=== PATIENT | male | born 1960 | race Caucasian/White ===

== ENCOUNTER → 2018-04-11 12:35 | Outpatient (CLI) | payer OTHER, SELFPAY ==
--- NOTE | 2018-04-11 | DI.MRI.S_ITS ---
PROCEDURE: MR KNEE RT WO CON INDICATIONS: CYST TECHNIQUE: Noncontrast sagittal PD fast spin echo and T2 fast spin echo with fat saturation, sagittal 3-D FLASH with fat saturation; coronal T1 spin echo and PD fast spin echo with fat saturation, and axial PD fast spin echo with fat saturation through the knee. COMPARISON: None. FINDINGS: Image quality: Excellent. Menisci: There is radial tearing of the posterior horn medial meniscus. Medial extrusion of the medial meniscus is present. Lateral meniscus demonstrates a linear oblique high T2 signal intensity within the anterior horn and body, without definite articular surface extension. Cruciate ligaments: The anterior and posterior cruciate ligaments appear intact. Medial structures: The medial collateral ligament appears intact, but is thickened slightly, which may be due to remote injury. Mild T2 signal elevation at the tibial insertion of the semimembranosus is present. Visualized portions of the pes anserinus tendons appear normal. No abnormal bursal fluid. Lateral structures: The lateral collateral ligament, long and short heads of the biceps femoris tendon appear intact. The popliteus tendon appears normal. Iliotibial band appears normal. Anterior structures: The quadriceps and patellar tendons appear intact. There is mild T2 signal elevation within the patellar tendon at the tibial insertion site. Patellar alignment is normal. No femoral trochlear dysplasia or ventral trochlear prominence. No edema in the infrapatellar fat pad. Moderate prepatellar subcutaneous edema and fluid. Bones and cartilage: No bone marrow contusions or fractures. There is moderate diffuse articular cartilage loss overlying the weightbearing aspects of the medial femoral condyle and medial tibial plateau. Mild diffuse articular cartilage loss overlies the patellar apex and adjacent portions of the medial and lateral patellar facets. Joint space: There is a moderate knee joint effusion and a large Zavala's cyst. Normal appearing synovial plicae are incidentally noted. IMPRESSION: 1. Medial meniscal tearing. 2. Mucoid degeneration of the lateral meniscus without definite superimposed tear. 3. Prepatellar bursitis. 4. New joint effusion and Zavala's cyst. 5. Insertional tendinitis of the semimembranosus. 6. Patellar tendinitis. Dictated by: Armen Valdez M.D. on 04/11/2018 at 13:27 Approved by: Armen Valdez M.D. on 04/11/2018 at 13:31
== END ==
PROVIDERS: Family Provider Internal Medicine; Visit Provider Internal Medicine
DX: S83.241A Other tear of medial meniscus, current injury, right knee, initial encounter (principal); M70.41 Prepatellar bursitis, right knee; M25.461 Effusion, right knee; M76.51 Patellar tendinitis, right knee
CPT/HCPCS: 73721

== ENCOUNTER 2021-07-24 10:16 | Emergency (ER) | payer OTHER, SELFPAY ==
[2021-07-24] VITALS (35 sets, daily range): BP systolic 123–210; BP diastolic 61–110; PULSE 54–220; RESP 13–28; TEMP 36.4–36.6; O2SAT 92–98; BMI 44.9
--- NOTE | 2021-07-24 10:25 | DI.RAD.S_ITS ---
PROCEDURE: XR CHEST 1V INDICATIONS: chest pain TECHNIQUE: One view of the chest was acquired. COMPARISON: None. FINDINGS: Surgical changes and devices: None. Lungs and pleura: Lungs are clear. No pleural effusions or pneumothorax. Mediastinum: Mediastinal contours appear normal. Heart size is normal. Bones and chest wall: No suspicious bony lesions. Overlying soft tissues appear unremarkable. IMPRESSION: No acute disease. Dictated by: Luiz Naqvi M.D. on 07/24/2021 at 11:14 Approved by: Luiz Naqvi M.D. on 07/24/2021 at 11:15
[2021-07-24 10:54] LABS: Add Manual Diff / Slide Review NO; Basophils Absolute Auto 0 /uL (0-100); Basophils Percent Auto 0.5 % (0-2); Eosinophils Absolute Auto 0 /uL (0-450); Hematocrit 43.8 % (41-53); Hemoglobin 14.8 g/dL (13.5-17.5); Lymphocytes Absolute Auto 1600 /uL (1100-4500); Lymphocytes Percent Auto 23.5 % (25-40); Mean Corpuscular HGB Conc 33.9 % (30-36); Mean Corpuscular Hemoglobin 31.3 PG (26-34); Mean Corpuscular Volume 92.5 fL (80-100); Monocytes Absolute Auto 400 /uL (0-900); Monocytes Percent Auto 6.5 % (3-14); Neutrophils Absolute Auto 4700 /uL (1500-7000); Neutrophils Percent Auto 69.5 % (50-75); Platelet Count 92 X10^3/uL (150-400); Red Blood Cell Count 4.73 X10^6/uL (4.5-5.9); Red Cell Distribution Width 14.2 % (11.6-14.8); White Blood Cell Count 6.8 X10^3/uL (4.5-11.0)
[2021-07-24 10:57] LABS: Alanine Aminotransferase 52 IU/L (<50); Albumin 4.8 g/dL (3.5-5.0); Albumin Globulin Ratio 1.5 (1.0-2.8); Alkaline Phosphatase 73 U/L (38-126); Aspartate Aminotransferase 82 IU/L (17-59); Bilirubin Total 1.6 mg/dL (0.2-1.3); Blood Urea Nitrogen 9 mg/dL (9-20); Calcium 9.5 mg/dL (8.4-10.2); Carbon Dioxide 20 mmol/L (22-32); Chloride 103 mmol/L (98-107); Creatine Kinase 503 U/L (55-170); Estimated Glomerular Filt Rate > 60.0 mL/min (>60); Globulin 3.1 g/dL (1.7-4.1); Glucose 119 mg/dL (80-110); HEMOLYSIS < 15 (0-50); Lipase 143 U/L (23-300); Potassium 3.9 mmol/L (3.4-5.1); Sodium 138 mmol/L (137-145); Total Protein 7.9 g/dL (6.3-8.2)
[2021-07-24 11:06] LABS: NT-proBNP (BNP-Adult 18+) 30 pg/mL (<125)
[2021-07-24 11:09] LABS: Troponin I < 0.012 ng/mL (0.01-0.034)
[2021-07-24 11:12] LABS: CKMB % Relative Index 0.9 % (1.5-5.0); COVID19 -Nasal RAPID Negative (Negative)
--- NOTE | 2021-07-24 11:13 | ED.GENADULT ---
HPI - General Adult General Chief complaint: Hypertension Stated complaint: HIGH BLOOD PRESSURE Time Seen by Provider: 07/24/21 10:40 Source: patient Mode of arrival: Ambulatory Limitations: no limitations History of Present Illness HPI narrative: This is a 60-year-old male who states he woke up today and feels very shaky and just generally unwell. His blood pressure was quite high he had his regular losartan at 4:00 a.m.. Patient's and his state he still felt very shaky and just unwell his blood pressure was still in the 170s so they took metoprolol p.o.. Patient continued to feel unwell and she overall and came to the emergency department. Has not had fevers that he is aware of. He denies chills but he has pyloric option in shaking here in the department. He denies headache, sudden vision changes. No chest pain or pressure. Possibly some mild shortness of breath. Denies any vomiting dry heaves and nausea. He has had nausea but denies any abdominal pain. He has had some diarrhea but no black or bloody stools. It has not been frequent in only a couple episodes. He denies any urinary symptoms. No new back or flank pain. No abdominal pain. Patient does have a wound on his right anterior mckeon he is unsure if they wound has increasing redness but the wound itself has opened up. [facility] time until about a month ago. Patient is on medication for hypertension. does note he has had 1 prior seizure when he had electrolyte abnormalities with a low sodium and potassium. Denies any other daily medications besides an aspirin 81 mg. Related Data Home Medications Medication Instructions Recorded Confirmed lisinopril 20 mg tablet (Zestril) 20 mg PO QDAY #0 03/29/13 Previous Rx's Medication Instructions Recorded rifampin 300 mg capsule (Rifadin) 300 mg PO BID #20 03/29/13 sulfamethoxazole 800 2 tab PO BID #40 03/29/13 mg-trimethoprim 160 mg tablet Allergies Allergy/AdvReac Type Severity Reaction Status Date / Time INGREDIENT: NO KNOWN - NO Allergy Unknown Uncoded 12/05/17 13:05 KNOWN DRUG ALLERGY Review of Systems Review of Systems ROS Unobtainable: All systems reviewed & are unremarkable except as noted in HPI and below Patient History Social History Smoking Status: Never smoker Smoking Status: Never smoker alcohol intake frequency: 0-2 drinks per day Substance Use Type: marijuana Exam Narrative Exam Narrative: GEN: Male, alert and oriented x 3, patient appears to be in moderate distress. Patient appears to have rigors and piloerection HEENT: Atraumatic, pupils are equal round reactive to light, extraocular movements are intact, nares are clear, TMs are clear with no fluid, there is no conjunctival pallor. Throat is clear without any exudates, erythema, tonsillar enlargement or uvular deviation, no facial droop. No meningeal changes. HEART: Regular rate and rhythm without murmur, clicks, rubs. Pulses are equal in upper and lower extremities LUNGS:Lungs clear to auscultation, no wheezes, rales, crackles, chest moves symmetrically ABD:bowel sounds normal, soft, non-tender, no guarding, rebound, rigidity, no masses noted, no hepatosplenomegaly, nondistended. :No CVA tenderness MSCL: Patient has on his right anterior mckeon with a small amount of breakdown, no purulent drainage. Patient has surrounding erythema of the leg and tracking upwards. He has no muscle atrophy, muscles strength 5/5 upper and lower extremities, full range of motion, normal gait NEURO:CN 2-12 intact, sensation normal, reflexes 2/4 upper and lower extremities. SKIN: No other rashes or skin lesions appreciated elsewhere. No petechiae, ecchymosis or purpura. Initial Vital Signs Initial Vital Signs: Vital Signs Temperature 97.9 F 07/24/21 10:22 Pulse Rate 102 H 07/24/21 10:22 Respiratory Rate 24 07/24/21 10:22 Blood Pressure 199/95 H 07/24/21 10:22 Pulse Oximetry 97 07/24/21 10:22 Scores GCS Maurice coma scale eye opening: Spontaneous Maurice coma scale verbal response: Orientated Nasima coma scale motor response: Obey commands Nasima coma scale total score: 15 Course Orders Ordered: ED Orders 07/24/21 10:25 XR chest 1V Stat 07/24/21 10:27 EKG-12 Lead Stat 07/24/21 10:35 BNP [NT-proBNP (BNP-Adult 18+)] Stat COVID19 -Nasal swab/Pre-Proc Stat Complete Blood Count AUTO DIFF Stat Comprehensive Metabolic Panel Stat Lactate (Lactic Acid) Stat Lipase Stat Procalcitonin Stat Troponin & CK Cardiac Panel Stat 07/24/21 11:27 CT angio chest abdomen pelvis Stat 07/24/21 11:45 COVID19 - ADMIT ([employer] swab/PCR) Stat 07/24/21 11:56 Blood Culture Stat 07/24/21 12:11 Urinalysis and Microscopic Stat 07/24/21 12:16 Wound Culture and Gram Stain Stat 07/24/21 13:20 Troponin I Stat Bisacodyl (Bisacodyl 10 Mg Supp) 10 mg [place] DAILY PRN PRN Reason: Constipation Enoxaparin Sodium (Enoxaparin 40 Mg/0.4 Ml Syringe) 40 mg SUBCUT DAILY [facility] Famotidine (Famotidine 20 Mg/2 Ml Vial) 20 mg IV BID [facility] Sodium Chloride (Normal Saline 0.9%) 1,000 mls @ 100 mls/hr IV CONT [facility] Last Admin: 07/24/21 17:38 Dose: 100 mls/hr Documented by: QUANG Levetiracetam 1,000 mg/ Sodium (Chloride) 110 mls @ 440 mls/hr IV Q12H EZEKIEL Lorazepam (Lorazepam 2 Mg/Ml Inj) 1 mg IV Q4HR PRN PRN Reason: SEIZURE Lorazepam (Lorazepam 2 Mg/Ml Inj) 2 mg IV Q4HR PRN PRN Reason: Alcohol Withdrawal Losartan Potassium (Losartan 25 Mg Tablet) 25 mg PO DAILY [facility] Metoclopramide HCl (Metoclopramide 10 Mg/2 Ml Inj) 10 mg IV Q6HR PRN PRN Reason: Nausea And Vomiting Metoprolol Succinate (Metoprolol Er 50 Mg Tablet) 50 mg PO DAILY [facility] Last Admin: 07/24/21 18:36 Dose: Not Given Documented by: QUANG Metoprolol Tartrate (Metoprolol Tartrate 5 Mg/5 Ml Inj) 5 mg IV Q6H PRN PRN Reason: SBP>180 AND/OR HR>110 Last Admin: 07/24/21 17:44 Dose: 5 mg Documented by: QUANG Morphine Sulfate (Morphine 2 Mg/Ml Inj) 2 mg IV Q4HR PRN PRN Reason: Pain, Mild (1-3) Naloxone HCl (Naloxone 0.4 Mg/Ml Vial) 0.2 mg IV Q2MIN PRN PRN Reason: Opiate Reversal Nifedipine (Nifedipine 30 Mg Tab Er) 30 mg PO DAILY EZEKIEL Discontinued Medications Piperacillin Sod/Tazobactam (Sod 4.5 gm/ Sodium Chloride) 100 mls @ 200 mls/hr IV NOW ONE Stop: 07/24/21 11:28 Last Infusion: 07/24/21 13:13 Dose: 0 mls/hr Documented by: Admin: 07/24/21 12:00 Dose: 200 mls/hr Documented by: QUANG Sodium Chloride (Normal Saline 0.9%) 1,000 mls @ 1,000 mls/hr IV BOLUS ONE Stop: 07/24/21 12:28 Last Admin: 07/24/21 12:20 Dose: Not Given Documented by: QUANG Sodium Chloride (Normal Saline 0.9%) 2,466 mls @ 822 mls/hr 30 ml/kg infuse over 3 hr (2466 ml) IV NOW ONE Stop: 07/24/21 15:05 Last Infusion: 07/24/21 16:05 Dose: 0 mls/hr Documented by: Admin: 07/24/21 12:19 Dose: 822 mls/hr Documented by: QUANG Vancomycin HCl/Dextrose (Vancomycin) 1,500 mg in 300 mls @ 200 mls/hr IV NOW ONE Stop: 07/24/21 13:36 Last Infusion: 07/24/21 17:05 Dose: 0 mls/hr Documented by: Admin: 07/24/21 12:52 Dose: 200 mls/hr Documented by: QUANG Levetiracetam 2,000 mg/ Sodium (Chloride) 120 mls @ 480 mls/hr IV NOW ONE Stop: 07/24/21 14:48 Last Infusion: 07/24/21 15:17 Dose: 0 mls/hr Documented by: Admin: 07/24/21 14:59 Dose: 480 mls/hr Documented by: QUANG Lorazepam (Lorazepam 2 Mg/Ml Inj) 2 mg IV NOW ONE Stop: 07/24/21 15:06 Last Admin: 07/24/21 14:07 Dose: 2 mg Documented by: QUANG Consultations Consultation #1: Dr. Hanley, hospitalist accepts for admission for possible sepsis although patient does not typically be criteria at this time he has actually been hypertensive. But does have what appears to be a cellulitis also has elevated liver enzymes. Patient's lactate was elevated. He was started on vanco and Zosyn for potential infection secondary to wound and erythema on his anterior leg as likely source. No other sources been clearly found at this time. Plan for ICU patient was given 30 cc/kilos L bolus. We did discuss whether not treated hypertension and Dr. Chen defers at this time. Vital Signs Vital signs: Vital Signs - 8 hr 07/24/21 11:00 07/24/21 11:03 07/24/21 11:12 Temperature Pulse Rate 97 H 98 H 101 H Respiratory Rate 18 19 22 Blood Pressure 177/94 H 180/88 H Pulse Oximetry 94 92 93 07/24/21 11:15 07/24/21 11:30 07/24/21 11:45 Temperature Pulse Rate 102 H 102 H 113 H Respiratory Rate 21 15 26 H Blood Pressure 183/96 H 185/95 H 210/110 H Pulse Oximetry 94 94 95 07/24/21 12:00 07/24/21 12:30 07/24/21 12:53 Temperature Pulse Rate 54 L 101 H 107 H Respiratory Rate 17 20 Blood Pressure 191/92 H 188/94 H Pulse Oximetry 95 92 97 07/24/21 13:00 07/24/21 13:15 Temperature 97.5 F L Pulse Rate 100 H 101 H Respiratory Rate 15 13 Blood Pressure 190/92 H 182/91 H Pulse Oximetry 95 94 Medical Decision Making Lab Data Result diagrams: 07/24/21 16:00 07/24/21 16:00 Labs: Lab Results 07/24/21 07/24/21 07/24/21 Range/Units 10:35 10:35 10:35 WBC 6.8 (4.5-11.0) X10^3/uL RBC 4.73 (4.5-5.9) X10^6/uL Hgb 14.8 (13.5-17.5) g/dL Hct 43.8 (41-53) % MCV 92.5 (80-100) fL MCH 31.3 (26-34) PG MCHC 33.9 (30-36) % RDW 14.2 (11.6-14.8) % Plt Count 92 L (150-400) X10^3/uL Neut % (Auto) 69.5 (50-75) % Lymph % (Auto) 23.5 L (25-40) % Nicholas % (Auto) 6.5 (3-14) % Eos % (Auto) 0.0 L (2-4) % Baso % (Auto) 0.5 (0-2) % Neut # (Auto) 4700 (5722-0508) /uL Lymph # (Auto) 1600 (0237-5044) /uL Nicholas # (Auto) 400 (0-900) /uL Eos # (Auto) 0 (0-450) /uL Baso # (Auto) 0 (0-100) /uL Sodium 138 (137-145) mmol/L Potassium 3.9 (3.4-5.1) mmol/L Chloride 103 (98-107) mmol/L Carbon Dioxide 20 L (22-32) mmol/L BUN 9 (9-20) mg/dL Creatinine 0.90 (0.66-1.25) mg/dL Estimated GFR > 60.0 (>60) mL/min BUN/Creatinine Ratio 10.0 (6-22) Glucose 119 H (80-110) mg/dL Lactate (0.7-2.1) mmol/L Calcium 9.5 (8.4-10.2) mg/dL Total Bilirubin 1.6 H (0.2-1.3) mg/dL AST 82 H (17-59) IU/L ALT 52 H (<50) IU/L Alkaline Phosphatase 73 (38-126) U/L Total Creatine Kinase 503 H (55-170) U/L CK-MB (CK-2) 4.30 H (<2.37) ng/mL CK-MB (CK-2) Rel Index 0.9 L (1.5-5.0) % Troponin I < 0.012 (0.01-0.034) ng/mL NT-Pro-B Natriuret Pep 30 (<125) pg/mL Total Protein 7.9 (6.3-8.2) g/dL Albumin 4.8 (3.5-5.0) g/dL Globulin 3.1 (1.7-4.1) g/dL Albumin/Globulin Ratio 1.5 (1.0-2.8) Lipase 143 (23-300) U/L Procalcitonin (<0.5) ng/mL Urine Color Urine Appearance Urine pH (4.5-8.0) Ur Specific Benjamin (1.000-1.035) Urine Protein (Negative) Urine Glucose (UA) (Negative) g/dL Urine Ketones (NEGATIVE) Urine Occult Blood (Negative) Urine Nitrate (Negative) Urine Bilirubin (NEGATIVE) Urine Urobilinogen (0.2) E.U./dL Ur Leukocyte Esterase (NEGATIVE) Urine RBC (0-5/HPF) Urine WBC (0-5/HPF) Ur Squamous Epith Cells (0-5/HPF) Amorphous Sediment Urine Bacteria (None) Urine Mucus (Negative) Ur Culture Indicated? U Opiates 300ng/mL cut (Negative) Ur Oxycodone Screen (Negative) Urine Methadone Screen (Negative) Ur Barbiturates Screen (Negative) U Tricyclic Antidepress (Negative) Ur Phencyclidine Scrn (Negative) Ur Amphetamines Screen (Negative) U Methamphetamines Scrn (Negative) Ur MDMA Scrn (Ecstasy) (Negative) U Benzodiazepines Scrn (Negative) Urine Cocaine Screen (Negative) U Marijuana (THC) Screen (Negative) SARS-CoV-2 (PCR) (Negative) 07/24/21 07/24/21 07/24/21 Range/Units 10:35 10:35 10:35 WBC (4.5-11.0) X10^3/uL RBC (4.5-5.9) X10^6/uL Hgb (13.5-17.5) g/dL Hct (41-53) % MCV (80-100) fL MCH (26-34) PG MCHC (30-36) % RDW (11.6-14.8) % Plt Count (150-400) X10^3/uL Neut % (Auto) (50-75) % Lymph % (Auto) (25-40) % Nicholas % (Auto) (3-14) % Eos % (Auto) (2-4) % Baso % (Auto) (0-2) % Neut # (Auto) (1820-1511) /uL Lymph # (Auto) (6482-0860) /uL Nicholas # (Auto) (0-900) /uL Eos # (Auto) (0-450) /uL Baso # (Auto) (0-100) /uL Sodium (137-145) mmol/L Potassium (3.4-5.1) mmol/L Chloride (98-107) mmol/L Carbon Dioxide (22-32) mmol/L BUN (9-20) mg/dL Creatinine (0.66-1.25) mg/dL Estimated GFR (>60) mL/min BUN/Creatinine Ratio (6-22) Glucose (80-110) mg/dL Lactate 4.3 H* (0.7-2.1) mmol/L Calcium (8.4-10.2) mg/dL Total Bilirubin (0.2-1.3) mg/dL AST (17-59) IU/L ALT (<50) IU/L Alkaline Phosphatase (38-126) U/L Total Creatine Kinase (55-170) U/L CK-MB (CK-2) (<2.37) ng/mL CK-MB (CK-2) Rel Index (1.5-5.0) % Troponin I (0.01-0.034) ng/mL NT-Pro-B Natriuret Pep (<125) pg/mL Total Protein (6.3-8.2) g/dL Albumin (3.5-5.0) g/dL Globulin (1.7-4.1) g/dL Albumin/Globulin Ratio (1.0-2.8) Lipase (23-300) U/L Procalcitonin 0.11 (<0.5) ng/mL Urine Color Urine Appearance Urine pH (4.5-8.0) Ur Specific Benjamin (1.000-1.035) Urine Protein (Negative) Urine Glucose (UA) (Negative) g/dL Urine Ketones (NEGATIVE) Urine Occult Blood (Negative) Urine Nitrate (Negative) Urine Bilirubin (NEGATIVE) Urine Urobilinogen (0.2) E.U./dL Ur Leukocyte Esterase (NEGATIVE) Urine RBC (0-5/HPF) Urine WBC (0-5/HPF) Ur Squamous Epith Cells (0-5/HPF) Amorphous Sediment Urine Bacteria (None) Urine Mucus (Negative) Ur Culture Indicated? U Opiates 300ng/mL cut (Negative) Ur Oxycodone Screen (Negative) Urine Methadone Screen (Negative) Ur Barbiturates Screen (Negative) U Tricyclic Antidepress (Negative) Ur Phencyclidine Scrn (Negative) Ur Amphetamines Screen (Negative) U Methamphetamines Scrn (Negative) Ur MDMA Scrn (Ecstasy) (Negative) U Benzodiazepines Scrn (Negative) Urine Cocaine Screen (Negative) U Marijuana (THC) Screen (Negative) SARS-CoV-2 (PCR) Negative (Negative) 07/24/21 07/24/21 07/24/21 Range/Units 11:45 12:11 12:11 WBC (4.5-11.0) X10^3/uL RBC (4.5-5.9) X10^6/uL Hgb (13.5-17.5) g/dL Hct (41-53) % MCV (80-100) fL MCH (26-34) PG MCHC (30-36) % RDW (11.6-14.8) % Plt Count (150-400) X10^3/uL Neut % (Auto) (50-75) % Lymph % (Auto) (25-40) % Nicholas % (Auto) (3-14) % Eos % (Auto) (2-4) % Baso % (Auto) (0-2) % Neut # (Auto) (4373-1909) /uL Lymph # (Auto) (3886-8369) /uL Nicholas # (Auto) (0-900) /uL Eos # (Auto) (0-450) /uL Baso # (Auto) (0-100) /uL Sodium (137-145) mmol/L Potassium (3.4-5.1) mmol/L Chloride (98-107) mmol/L Carbon Dioxide (22-32) mmol/L BUN (9-20) mg/dL Creatinine (0.66-1.25) mg/dL Estimated GFR (>60) mL/min BUN/Creatinine Ratio (6-22) Glucose (80-110) mg/dL Lactate (0.7-2.1) mmol/L Calcium (8.4-10.2) mg/dL Total Bilirubin (0.2-1.3) mg/dL AST (17-59) IU/L ALT (<50) IU/L Alkaline Phosphatase (38-126) U/L Total Creatine Kinase (55-170) U/L CK-MB (CK-2) (<2.37) ng/mL CK-MB (CK-2) Rel Index (1.5-5.0) % Troponin I (0.01-0.034) ng/mL NT-Pro-B Natriuret Pep (<125) pg/mL Total Protein (6.3-8.2) g/dL Albumin (3.5-5.0) g/dL Globulin (1.7-4.1) g/dL Albumin/Globulin Ratio (1.0-2.8) Lipase (23-300) U/L Procalcitonin (<0.5) ng/mL Urine Color Yellow Urine Appearance Clear Urine pH 6.0 (4.5-8.0) Ur Specific Benjamin 1.015 (1.000-1.035) Urine Protein 1+ H (Negative) Urine Glucose (UA) Negative (Negative) g/dL Urine Ketones 1+ H (NEGATIVE) Urine Occult Blood Trace-lysed (Negative) Urine Nitrate Negative (Negative) Urine Bilirubin Negative (NEGATIVE) Urine Urobilinogen 0.2 (0.2) E.U./dL Ur Leukocyte Esterase Negative (NEGATIVE) Urine RBC 0-1/hpf (0-5/HPF) Urine WBC 0-1/hpf (0-5/HPF) Ur Squamous Epith Cells 1-5 /hpf (0-5/HPF) Amorphous Sediment Urine Bacteria Moderate (10-30) H (None) Urine Mucus (Negative) Ur Culture Indicated? Cult not indicated U Opiates 300ng/mL cut Negative (Negative) Ur Oxycodone Screen Negative (Negative) Urine Methadone Screen Negative (Negative) Ur Barbiturates Screen Negative (Negative) U Tricyclic Antidepress Negative (Negative) Ur Phencyclidine Scrn Negative (Negative) Ur Amphetamines Screen Negative (Negative) U Methamphetamines Scrn Negative (Negative) Ur MDMA Scrn (Ecstasy) Negative (Negative) U Benzodiazepines Scrn Negative (Negative) Urine Cocaine Screen Negative (Negative) U Marijuana (THC) Screen Positive H (Negative) SARS-CoV-2 (PCR) Negative (Negative) 07/24/21 Range/Units 12:11 WBC (4.5-11.0) X10^3/uL RBC (4.5-5.9) X10^6/uL Hgb (13.5-17.5) g/dL Hct (41-53) % MCV (80-100) fL MCH (26-34) PG MCHC (30-36) % RDW (11.6-14.8) % Plt Count (150-400) X10^3/uL Neut % (Auto) (50-75) % Lymph % (Auto) (25-40) % Nicholas % (Auto) (3-14) % Eos % (Auto) (2-4) % Baso % (Auto) (0-2) % Neut # (Auto) (4265-6342) /uL Lymph # (Auto) (8304-6618) /uL Nicholas # (Auto) (0-900) /uL Eos # (Auto) (0-450) /uL Baso # (Auto) (0-100) /uL Sodium (137-145) mmol/L Potassium (3.4-5.1) mmol/L Chloride (98-107) mmol/L Carbon Dioxide (22-32) mmol/L BUN (9-20) mg/dL Creatinine (0.66-1.25) mg/dL Estimated GFR (>60) mL/min BUN/Creatinine Ratio (6-22) Glucose (80-110) mg/dL Lactate (0.7-2.1) mmol/L Calcium (8.4-10.2) mg/dL Total Bilirubin (0.2-1.3) mg/dL AST (17-59) IU/L ALT (<50) IU/L Alkaline Phosphatase (38-126) U/L Total Creatine Kinase (55-170) U/L CK-MB (CK-2) (<2.37) ng/mL CK-MB (CK-2) Rel Index (1.5-5.0) % Troponin I (0.01-0.034) ng/mL NT-Pro-B Natriuret Pep (<125) pg/mL Total Protein (6.3-8.2) g/dL Albumin (3.5-5.0) g/dL Globulin (1.7-4.1) g/dL Albumin/Globulin Ratio (1.0-2.8) Lipase (23-300) U/L Procalcitonin (<0.5) ng/mL Urine Color Urine Appearance Urine pH (4.5-8.0) Ur Specific Benjamin (1.000-1.035) Urine Protein (Negative) Urine Glucose (UA) (Negative) g/dL Urine Ketones (NEGATIVE) Urine Occult Blood (Negative) Urine Nitrate (Negative) Urine Bilirubin (NEGATIVE) Urine Urobilinogen (0.2) E.U./dL Ur Leukocyte Esterase (NEGATIVE) Urine RBC 1-5/hpf (0-5/HPF) Urine WBC 1-5/hpf (0-5/HPF) Ur Squamous Epith Cells 0-1 /hpf (0-5/HPF) Amorphous Sediment 1+ Urine Bacteria Few (2-10) H (None) Urine Mucus 1+ H (Negative) Ur Culture Indicated? Specimen cultured U Opiates 300ng/mL cut (Negative) Ur Oxycodone Screen (Negative) Urine Methadone Screen (Negative) Ur Barbiturates Screen (Negative) U Tricyclic Antidepress (Negative) Ur Phencyclidine Scrn (Negative) Ur Amphetamines Screen (Negative) U Methamphetamines Scrn (Negative) Ur MDMA Scrn (Ecstasy) (Negative) U Benzodiazepines Scrn (Negative) Urine Cocaine Screen (Negative) U Marijuana (THC) Screen (Negative) SARS-CoV-2 (PCR) (Negative) Point of Care Testing Glucose POC 119 Urine Dip Bedside Urine Glucose Negative Bedside Urine Bilirubin - Negative Bedside Urine Ketone + 15 Urine Specific Benjamin 1.015 Bedside Urine Occult Blood - Negative Bedside Urine pH 6.0 Bedside Urine Protein + 30 Bedside Urine Urobilinogen - Negative Bedside Urine Nitrite - Negative Bedside Urine Leukocytes - Negative Esterase Point of care testing: Point of Care Testing Glucose POC 119 Urine Dip Bedside Urine Glucose Negative Bedside Urine Bilirubin - Negative Bedside Urine Ketone + 15 Urine Specific Benjamin 1.015 Bedside Urine Occult Blood - Negative Bedside Urine pH 6.0 Bedside Urine Protein + 30 Bedside Urine Urobilinogen - Negative Bedside Urine Nitrite - Negative Bedside Urine Leukocytes - Negative Esterase Imaging Data CT scan - abdomen/pelvis: Radiologist's Impression: Launch?[address] [address] [address] Scan Report Signed Patient: Rupesh Olmedo MR#: [id number] : 1960 Acct:[id number] Age/Sex: 60 / M Date of Service: 07/24/21 Loc: ED Accession Number: [id number] ?? Procedure: CT angio chest abdomen pelvis Ordering Provider: Laura Gold D.O. PROCEDURE:? CT ANGIO CHEST ABDOMEN PELVIS ? INDICATIONS:? shaky, htn, elevated lfts ? TECHNIQUE:? Precontrast 5 mm thick sections acquired from the lung apices to the iliac crests.? After the administration of intravenous contrast, 2.5 mm thick sections again acquired from the lung apices to the iliac crests.? Maximum intensity projection (MIP) oblique sagittal and coronal reformats were then acquired.? For radiation dose reduction, the following was used:? automated exposure control.? ? COMPARISON:? [facility], CR, XR CHEST 1V, 07/24/2021, 10:41. ? FINDINGS:? Image quality:? Excellent.? ? AORTA:? The aorta demonstrates normal caliber.? No findings aneurysm or dissection are seen. ? CHEST:? Lungs and pleura:? No acute airspace opacities.? No pleural effusions or pneumothorax.? Central and peripheral airways are patent and normal in caliber.? ? Mediastinum:? Heart size is normal.? No pericardial effusion.? No mediastinal or hilar adenopathy by size criteria.? Central pulmonary arteries are normal in size.? To the limits of this study performed for evaluation of the aorta, no large or central pulmonary embolism can be seen.? Esophagus is normal in caliber.? There is a small hiatal hernia.? ? Bones and chest wall:? No axillary adenopathy by size criteria.? Thyroid gland demonstrates no significant abnormality.? No suspicious bony lesions.? No vertebral body compression fractures.? ? ? ABDOMEN:? Vasculature:? Celiac trunk and mesenteric arteries are patent.? Renal arteries are also patent.? ? Solid organs:? An enlarged, fatty liver can be seen.? No focal liver lesion is seen.? Gallbladder wall is not thickened.? Biliary system is non dilated.? Pancreas enhances normally.? Spleen is normal in size and enhancement.? No adrenal nodules.? Both kidneys are normal in size and enhancement, without hydronephrosis.? ? Peritoneum and bowel:? No free fluid or air.? Bowel loops are normal in caliber and wall thickness.? ? Nodes and vessels:? No retroperitoneal or mesenteric adenopathy by size criteria.? Inferior vena cava is normal in morphology.? ? Miscellaneous:? No ventral hernias.? ? ? PELVIS:? Genitourinary:? The urinary bladder is decompressed, which limits its evaluation. ? Miscellaneous:? No enlarged inguinal or pelvic lymph nodes are seen.? There is a fat-containing right inguinal hernia seen.? ? Bones:? No suspicious bony lesions.? No vertebral body compression fractures.? Age-appropriate bony degenerative changes are seen.? ? ? IMPRESSION:? No acute aortic pathology can be seen. ? No significant mesenteric artery abnormality is seen. ? Enlarged, fatty liver. ? ? ? Incidental note is made of: Small hiatal hernia Fat containing right inguinal hernia ? Dictated by: Chris Hodgson M.D. on 07/24/2021 at 11:37 ? ? Approved by: Chris Hodgson M.D. on 07/24/2021 at 11:41? CT scan - head: Radiologist's Impression: [address] [address] [address] Scan Report Signed Patient: Rupesh Olmedo MR#: [id number] : 1960 Acct:[id number] Age/Sex: 60 / M Date of Service: 07/24/21 Loc: 90A-1 Accession Number: [id number] ?? Procedure: CT head/brain wo con Ordering Provider: Laura Gold D.O. PROCEDURE:? CT HEAD/BRAIN WO CON ? INDICATIONS:? seizure ? TECHNIQUE:? Noncontrast 4.5 mm thick angled axial sections acquired from the foramen magnum to the vertex, with coronal and sagittal reformats.? For radiation dose reduction, the following was used:? automated exposure control, adjustment of mA and/or kV according to patient size.? ? COMPARISON:? [facility], CR, XR CHEST 1V, 07/24/2021, 10:41. ? FINDINGS:? Image quality:? Excellent.? ? CSF spaces:? Basal cisterns are patent.? No extra-axial fluid collections.? The ventricles are symmetric in size and shape.? ? Brain:? No intracranial bleeds or masses.? There is cerebral volume loss for age, with resultant ventricular and sulcal prominence.? There are periventricular and deep white matter chronic small vessel ischemic changes.? There is intracranial internal carotid artery atherosclerosis.? ? Skull and face:? Calvarium and visualized facial bones appear intact, without suspicious lesions.? ? Sinuses:? A small amount of mucosal thickening is seen within the right maxillary sinus.? Visualized sinuses and mastoids are otherwise relatively clear.? ? ? IMPRESSION:? ? No acute intracranial process is seen on this noncontrast head CT. ? ? Dictated by: Chris Hodgson M.D. on 07/24/2021 at 13:37 ? ? Approved by: Chris Hodgson M.D. on 07/24/2021 at 13:38 ECG Data Attestation: I personally reviewed and interpreted this ECG as follows: Prior ECG tracings: not available for review Interpretation: Sinus rhythm, rate of 98 [place] 164 QRS of 96 and QTC 472. No acute ST elevation depression. Patient is not a prior for comparison. Patient's repeat EKG does not show any new ST changes but patient does appear to have prolonged QT. MDM Narrative Medical decision making narrative: This is a 60-year-old male who comes in with complaint of hypertension and feeling shaky patient appears to be having rigors and pyloric mckeon on exam. He does have what appears to be an open wound and some cellulitis on his right lower extremity but is also noted to have some nausea with some dry heaves overnight as well as some loose stools. His abdominal labs are elevated but he is nontender on exam. His lactate was elevated had some mild improvement but not complete resolution. He was given a 30 cc/kilos bolus. Has not had any other clear changes. He is hypertensive but also slightly tachycardic. Imaging does not show any clear changes on CT chest abdomen pelvis angio. Suspected infection and started on vanco and Zosyn. Patient was admitted to ICU with Dr. Chen was boarding here in the department awaiting a bed upstairs. While in the department patient ambulated to the bathroom and then returned and had what appeared to be and a seizure-like activity with tonic-clonic activity lasting approximately 60 seconds. He received Ativan here in the department. Head CT was negative. Patient has not had any fever so far and resumed his normal mentation. He has had 1 prior seizure in the past when he had hyponatremia and some changes to his potassium as well. He does not have any other known seizure history. Dr. Chen initiated Kera. Patient was ultimately accepted at [facility]. Critical Care Time Critical Care Time Critical Care Time: Yes Total Critical Care Time: 45 Attestation: The high probability of a clinically significant, sudden or life threatening deterioration of the [cardiac, pulm, neuro] system(s) required my full and direct attention, intervention and personal management. The aggregate critical care time was [] minutes. This time is in addition to time spent performing reported procedures but includes the following: [x] Data Review and interpretation [x] Patient assessment and monitoring of vital signs [x] Documentation [x] Medication orders and management Discharge Plan Departure Patient Disposition: Admitted As Inpatient Clinical Impression: Cellulitis of leg, right, Seizure, Sepsis, Hypertension Admit Date/Time: 07/24/21 13:15 Admit Provider: Telma Newton
--- NOTE | 2021-07-24 11:27 | DI.CT.S_ITS ---
PROCEDURE: CT ANGIO CHEST ABDOMEN PELVIS INDICATIONS: shaky, htn, elevated lfts TECHNIQUE: Precontrast 5 mm thick sections acquired from the lung apices to the iliac crests. After the administration of intravenous contrast, 2.5 mm thick sections again acquired from the lung apices to the iliac crests. Maximum intensity projection (MIP) oblique sagittal and coronal reformats were then acquired. For radiation dose reduction, the following was used: automated exposure control. COMPARISON: [facility], CR, XR CHEST 1V, 07/24/2021, 10:41. FINDINGS: Image quality: Excellent. AORTA: The aorta demonstrates normal caliber. No findings aneurysm or dissection are seen. CHEST: Lungs and pleura: No acute airspace opacities. No pleural effusions or pneumothorax. Central and peripheral airways are patent and normal in caliber. Mediastinum: Heart size is normal. No pericardial effusion. No mediastinal or hilar adenopathy by size criteria. Central pulmonary arteries are normal in size. To the limits of this study performed for evaluation of the aorta, no large or central pulmonary embolism can be seen. Esophagus is normal in caliber. There is a small hiatal hernia. Bones and chest wall: No axillary adenopathy by size criteria. Thyroid gland demonstrates no significant abnormality. No suspicious bony lesions. No vertebral body compression fractures. ABDOMEN: Vasculature: Celiac trunk and mesenteric arteries are patent. Renal arteries are also patent. Solid organs: An enlarged, fatty liver can be seen. No focal liver lesion is seen. Gallbladder wall is not thickened. Biliary system is non dilated. Pancreas enhances normally. Spleen is normal in size and enhancement. No adrenal nodules. Both kidneys are normal in size and enhancement, without hydronephrosis. Peritoneum and bowel: No free fluid or air. Bowel loops are normal in caliber and wall thickness. Nodes and vessels: No retroperitoneal or mesenteric adenopathy by size criteria. Inferior vena cava is normal in morphology. Miscellaneous: No ventral hernias. PELVIS: Genitourinary: The urinary bladder is decompressed, which limits its evaluation. Miscellaneous: No enlarged inguinal or pelvic lymph nodes are seen. There is a fat-containing right inguinal hernia seen. Bones: No suspicious bony lesions. No vertebral body compression fractures. Age-appropriate bony degenerative changes are seen. IMPRESSION: No acute aortic pathology can be seen. No significant mesenteric artery abnormality is seen. Enlarged, fatty liver. Incidental note is made of: Small hiatal hernia Fat containing right inguinal hernia Dictated by: Chris Hodgson M.D. on 07/24/2021 at 11:37 Approved by: Chris Hodgson M.D. on 07/24/2021 at 11:41
[2021-07-24] MEDS: PIPERACILLIN/TAZO 4.5 GM in SODIUM CHLORIDE 0.9% 100 ML 200 ML IV (12:00)
[2021-07-24 12:07] LABS: Lactate (Lactic Acid) 4.3 mmol/L (0.7-2.1)
[2021-07-24 12:14] LABS: Procalcitonin 0.11 ng/mL (<0.5)
[2021-07-24] MEDS: SODIUM CHLORIDE 0.9% 2,466 ML 822 ML IV (12:19)
[2021-07-24] MEDS: VANCOMYCIN 1,500 MG/300 ML PIGGYBACK 200 MG IV (12:52)
[2021-07-24 13:12] LABS: Appearance Urine UA CLEAR; Bilirubin Urine UA NEGATIVE (NEGATIVE); Color Urine UA YELLOW; Glucose Urine UA NEGATIVE (Negative); Ketones Urine UA 1+ (NEGATIVE); Leukocyte Esterase Urine UA NEGATIVE (NEGATIVE); Nitrite Urine UA NEGATIVE (Negative); Occult Blood Urine UA TRACE-LYSED (Negative); Protein Urine UA 1+ (Negative); Specific Gravity Urine UA 1.015 (1.000-1.035); Urobilinogen Urine UA 0.2 E.U./dL (0.2)
[2021-07-24 13:39] LABS: Bacteria Urine Moderate (10-30); Culture Indicated Urine Cult Not Indicated; RBC Urine 0-1/HPF (0-5/HPF); Squamous Epithelial Cell Urine 1-5 /HPF (0-5/HPF); WBC Urine 0-1/HPF (0-5/HPF)
[2021-07-24 13:42] LABS: Lactate 2HR (Lactic Acid Rflx) 3.1 mmol/L (0.7-2.1)
[2021-07-24 13:46] LABS: Reflexed Lactate in 2 Hours Y
[2021-07-24 13:54] LABS: Troponin I < 0.012 ng/mL (0.01-0.034)
[2021-07-24] MEDS: LORazepam 2 MG/ML INJ IV (14:07)
--- NOTE | 2021-07-24 14:11 | DI.CT.S_ITS ---
PROCEDURE: CT HEAD/BRAIN WO CON INDICATIONS: seizure TECHNIQUE: Noncontrast 4.5 mm thick angled axial sections acquired from the foramen magnum to the vertex, with coronal and sagittal reformats. For radiation dose reduction, the following was used: automated exposure control, adjustment of mA and/or kV according to patient size. COMPARISON: [facility], CR, XR CHEST 1V, 07/24/2021, 10:41. FINDINGS: Image quality: Excellent. CSF spaces: Basal cisterns are patent. No extra-axial fluid collections. The ventricles are symmetric in size and shape. Brain: No intracranial bleeds or masses. There is cerebral volume loss for age, with resultant ventricular and sulcal prominence. There are periventricular and deep white matter chronic small vessel ischemic changes. There is intracranial internal carotid artery atherosclerosis. Skull and face: Calvarium and visualized facial bones appear intact, without suspicious lesions. Sinuses: A small amount of mucosal thickening is seen within the right maxillary sinus. Visualized sinuses and mastoids are otherwise relatively clear. IMPRESSION: No acute intracranial process is seen on this noncontrast head CT. Dictated by: Chris Hodgson M.D. on 07/24/2021 at 13:37 Approved by: Chris Hodgson M.D. on 07/24/2021 at 13:38
[2021-07-24 14:50] LABS: COVID19 - ADMIT (NP swab/PCR) Negative (Negative)
--- NOTE | 2021-07-24 14:50 | PC.NURSE ---
1404 pt had seizure lasting approx 5 mins, gave ativan total 2 mg iv, pt currently post ictal. pt had repeat head ct and ekg, and labs drawn. pt on nonrebreather mask and monitor to transport to ct with rn and rt x2. er md at for seizure and hospitalist at bedside immediately post seizure. orders obtained for loading dose of keppra.
[2021-07-24] MEDS: levETIRAcetam 2,000 MG in SODIUM CHLORIDE 0.9% 100 ML 480 ML IV (14:59)
--- NOTE | 2021-07-24 15:28 | PC.NURSE ---
His provider asked to place this patient on transfer lists for available ICU/CCU bed. Called [facility] at 14:45 and they had no bed availability. Called [facility] and talked to Mark at 14:50 and placed him on the transfer list. Called [facility] in [place] and talked to Amaris at 15:00 and placed him on the transfer list. Called [facility] and talked to Galdino at 15:10 and placed him on the transfer list. Called [facility] and talked to Tone at 15:20 and placed him on the transfer list.
--- NOTE | 2021-07-24 15:29 | P.HP_ITS ---
History of Present Illness History of Present Illness Date Patient Seen: 07/24/21 Chief complaint: HIGH BLOOD PRESSURE Narrative: THIS IS A 60-YEAR-OLD MALE FOR PAST SURGICAL HISTORY SIGNIFICANT FOR HYPERTENSION, HYPERLIPIDEMIA, VENOUS STASIS, AND POSS ETOH ABUSE HE IS MORBIDLY OBESE. PATIENT ORIGINALLY CAME TO THE ER BECAUSE OF INABILITY TO CONTROL HIS BLOOD PRESSURE. HE TAKES MULTIPLE MEDICATIONS FOR HIS BLOOD PRESSURE WHICH INCLUDE METOPROLOL AND LISINOPRIL. HOWEVER HIS STATED THAT TODAY HE TOOK HIS MEDICATION BUT HIS BLOOD PRESSURE REMAINED ELEVATED. HIS AT BEDSIDE REPORTED THAT PATIENT STATED TO HER THAT HE WAS NOT FEELING WELL. SO THE DECISION WAS MADE TO BRING THE PATIENT TO THE ER. WHILE HE WAS IN THE ER, HIS LABS SHOWED AN ELEVATED LACTIC ACID LEVEL. HIS WBC HOWEVER WAS WITHIN NORMAL LIMITS. IMAGING DID NOT SHOW ANY PNEUMONIA OR INTRA-ABDOMINAL INFECTIOUS PROCESS. SHORTLY AFTER BEING ACCEPTED INTO OUR SERVICES, WHILE IN THE ER HAD A WITNESSED SEIZURE. HE WAS GIVEN ATIVAN AND SUBSEQUENTLY STARTED ON KEPPRA . SEIZURE ACTIVITY HAS COMPLETELY RESOLVED AT THIS TIME. CT SCAN OF THE BRAIN WAS NEGATIVE. Patient History Comment: PAST MEDICAL HISTORY HYPERTENSION HYPERLIPIDEMIA MORBID OBESITY PRIOR SEIZURE Family & Social History Social History: PATIENT DRINKS ALCOHOL EVERY DAY REPORTEDLY. HE IS NO TOBACCO USE BORDERED Safety & Behavioral: Feels Safe in Current Yes Environment Been Physically Hurt or No Threatened By a Person Tobacco & Substance use: Smoking Status Never smoker alcohol intake frequency 0-2 drinks per day Substance Use Type marijuana Meds Home Medications and Allergies Home Medications Medication Instructions Recorded Confirmed Type lisinopril 20 mg tablet (Zestril) 20 mg PO QDAY #0 03/29/13 History rifampin 300 mg capsule (Rifadin) 300 mg PO BID #20 03/29/13 Rx sulfamethoxazole 800 2 tab PO BID #40 03/29/13 Rx mg-trimethoprim 160 mg tablet Allergies Allergy/AdvReac Type Severity Reaction Status Date / Time INGREDIENT: NO KNOWN - NO Allergy Unknown Uncoded 12/05/17 13:05 KNOWN DRUG ALLERGY Review of Systems Review of Systems Narrative: NEGATIVE UNLESS NOTED ABOVE IN THE HPI Exam Vital Signs (past 8 hours): - 07/24/21 10:22 07/24/21 10:53 07/24/21 11:00 Temperature 97.9 F Pulse Rate 102 H 100 H 97 H Respiratory Rate 24 20 18 Blood Pressure 199/95 H 175/103 H Pulse Oximetry 97 94 94 07/24/21 11:03 07/24/21 11:12 07/24/21 11:15 Temperature Pulse Rate 98 H 101 H 102 H Respiratory Rate 19 22 21 Blood Pressure 177/94 H 180/88 H 183/96 H Pulse Oximetry 92 93 94 07/24/21 11:30 07/24/21 11:45 07/24/21 12:00 Temperature Pulse Rate 102 H 113 H 54 L Respiratory Rate 15 26 H Blood Pressure 185/95 H 210/110 H 191/92 H Pulse Oximetry 94 95 95 07/24/21 12:30 07/24/21 12:53 07/24/21 13:00 Temperature 97.5 F L Pulse Rate 101 H 107 H 100 H Respiratory Rate 17 20 15 Blood Pressure 188/94 H 190/92 H Pulse Oximetry 92 97 95 07/24/21 13:15 07/24/21 13:30 07/24/21 13:45 Temperature Pulse Rate 101 H 103 H 103 H Respiratory Rate 13 19 17 Blood Pressure 182/91 H 178/87 H 184/89 H Pulse Oximetry 94 94 95 07/24/21 14:07 07/24/21 14:19 07/24/21 14:23 Temperature Pulse Rate 128 H 122 H 125 H Respiratory Rate 23 21 25 H Blood Pressure 142/64 H 134/62 Pulse Oximetry 92 92 07/24/21 14:30 07/24/21 14:45 07/24/21 15:00 Temperature Pulse Rate 127 H 220 H 124 H Respiratory Rate 28 H 27 H 25 H Blood Pressure 152/66 H 123/65 129/61 Pulse Oximetry 96 96 97 Oxygen Delivery Method Room Air Narrative Exam Narrative: NO ACUTE DISTRESS. ALERT AWAKE ORIENTED X3. MORBIDLY OBESE. TACHYCARDIA. HYPERTENSIVE NOTED ON VITAL SIGNS HEAD ATRAUMATIC NORMOCEPHALIC NECK : NO ADENOPATHY NO CAROTID BRUITS EYE: EOMI, PERRLA, NORMAL CONJUNCTIVA; NO JAUNDICE CHEST: REGULAR RATE. NO RUBS. PMI IS NON DISPLACED. NO MURMURS; NORMAL S1- S2 PULMONARY: NO WHEEZING. NO RALES. NO RHONCHI. DECREASED BS OVER THE BASES. MILD BIBASILAR CRACKLES NOTED; NO INCREASED DULLNESS TO PERCUSSION ABDOMEN: OBESE BUT SOFT. NONDISTENDED. BOWEL SOUNDS ARE PRESENT IN ALL 4 QUADRANTS. NO MASS. EXTREMITIES: NO EDEMA.. NO CYANOSIS CLUBBING NOTED. NEURO: CRANIAL NERVES 2-12 GROSSLY INTACT. NO FOCAL NEUROLOGICAL DEFICIT NOTED. MSK: NORMAL RANGE OF MOTION FOR AGE. NO JOINT EFFUSION. SKIN: NORMAL FOR ETHNICITY; NO ECCHYMOSIS. NO LESION. GOOD TURGOR.; NO RASHES : NORMAL EXTERNAL GENITALIA. PSYCH : APPROPRIATE MOOD AND AFFECT. ALERT, AWAKE, ORIENTED X3. CALM. COOPERATIVE. NO PSYCHOSIS Objective Labs Result Diagrams: 07/24/21 16:00 07/24/21 10:35 Labs: Laboratory Results - last 24 hr 07/24/21 07/24/21 07/24/21 10:35 10:35 10:35 WBC 6.8 RBC 4.73 Hgb 14.8 Hct 43.8 MCV 92.5 MCH 31.3 MCHC 33.9 RDW 14.2 Plt Count 92 L Neut % (Auto) 69.5 Lymph % (Auto) 23.5 L [place] % (Auto) 6.5 Eos % (Auto) 0.0 L Baso % (Auto) 0.5 Neut # (Auto) 4700 Lymph # (Auto) 1600 [place] # (Auto) 400 Eos # (Auto) 0 Baso # (Auto) 0 Sodium 138 Potassium 3.9 Chloride 103 Carbon Dioxide 20 L BUN 9 Creatinine 0.90 Estimated GFR > 60.0 BUN/Creatinine Ratio 10.0 Glucose 119 H Lactate Calcium 9.5 Total Bilirubin 1.6 H AST 82 H ALT 52 H Alkaline Phosphatase 73 Total Creatine Kinase 503 H CK-MB (CK-2) 4.30 H CK-MB (CK-2) Rel Index 0.9 L Troponin I < 0.012 NT-Pro-B Natriuret Pep 30 Total Protein 7.9 Albumin 4.8 Globulin 3.1 Albumin/Globulin Ratio 1.5 Lipase 143 Procalcitonin Urine Color Urine Appearance Urine pH Ur Specific [place] Urine Protein Urine Glucose (UA) Urine Ketones Urine Occult Blood Urine Nitrate Urine Bilirubin Urine Urobilinogen Ur Leukocyte Esterase Urine RBC Urine WBC Ur Squamous Epith Cells Urine Bacteria Ur Culture Indicated? SARS-CoV-2 (PCR) 07/24/21 07/24/21 07/24/21 10:35 10:35 10:35 WBC RBC Hgb Hct MCV MCH MCHC RDW Plt Count Neut % (Auto) Lymph % (Auto) [place] % (Auto) Eos % (Auto) Baso % (Auto) Neut # (Auto) Lymph # (Auto) [place] # (Auto) Eos # (Auto) Baso # (Auto) Sodium Potassium Chloride Carbon Dioxide BUN Creatinine Estimated GFR BUN/Creatinine Ratio Glucose Lactate 4.3 H* Calcium Total Bilirubin AST ALT Alkaline Phosphatase Total Creatine Kinase CK-MB (CK-2) CK-MB (CK-2) Rel Index Troponin I NT-Pro-B Natriuret Pep Total Protein Albumin Globulin Albumin/Globulin Ratio Lipase Procalcitonin 0.11 Urine Color Urine Appearance Urine pH Ur Specific [place] Urine Protein Urine Glucose (UA) Urine Ketones Urine Occult Blood Urine Nitrate Urine Bilirubin Urine Urobilinogen Ur Leukocyte Esterase Urine RBC Urine WBC Ur Squamous Epith Cells Urine Bacteria Ur Culture Indicated? SARS-CoV-2 (PCR) Negative 07/24/21 07/24/21 07/24/21 11:45 12:11 13:20 WBC RBC Hgb Hct MCV MCH MCHC RDW Plt Count Neut % (Auto) Lymph % (Auto) [place] % (Auto) Eos % (Auto) Baso % (Auto) Neut # (Auto) Lymph # (Auto) [place] # (Auto) Eos # (Auto) Baso # (Auto) Sodium Potassium Chloride Carbon Dioxide BUN Creatinine Estimated GFR BUN/Creatinine Ratio Glucose Lactate Calcium Total Bilirubin AST ALT Alkaline Phosphatase Total Creatine Kinase CK-MB (CK-2) CK-MB (CK-2) Rel Index Troponin I < 0.012 NT-Pro-B Natriuret Pep Total Protein Albumin Globulin Albumin/Globulin Ratio Lipase Procalcitonin Urine Color Yellow Urine Appearance Clear Urine pH 6.0 Ur Specific [place] 1.015 Urine Protein 1+ H Urine Glucose (UA) Negative Urine Ketones 1+ H Urine Occult Blood Trace-lysed Urine Nitrate Negative Urine Bilirubin Negative Urine Urobilinogen 0.2 Ur Leukocyte Esterase Negative Urine RBC 0-1/hpf Urine WBC 0-1/hpf Ur Squamous Epith Cells 1-5 /hpf Urine Bacteria Moderate (10-30) H Ur Culture Indicated? Cult not indicated SARS-CoV-2 (PCR) Negative 07/24/21 13:20 WBC RBC Hgb Hct MCV MCH MCHC RDW Plt Count Neut % (Auto) Lymph % (Auto) [place] % (Auto) Eos % (Auto) Baso % (Auto) Neut # (Auto) Lymph # (Auto) [place] # (Auto) Eos # (Auto) Baso # (Auto) Sodium Potassium Chloride Carbon Dioxide BUN Creatinine Estimated GFR BUN/Creatinine Ratio Glucose Lactate 3.1 H Calcium Total Bilirubin AST ALT Alkaline Phosphatase Total Creatine Kinase CK-MB (CK-2) CK-MB (CK-2) Rel Index Troponin I NT-Pro-B Natriuret Pep Total Protein Albumin Globulin Albumin/Globulin Ratio Lipase Procalcitonin Urine Color Urine Appearance Urine pH Ur Specific [place] Urine Protein Urine Glucose (UA) Urine Ketones Urine Occult Blood Urine Nitrate Urine Bilirubin Urine Urobilinogen Ur Leukocyte Esterase Urine RBC Urine WBC Ur Squamous Epith Cells Urine Bacteria Ur Culture Indicated? SARS-CoV-2 (PCR) Assessment & Plan Assessment & Plan narrative: IMPRESSION 0--- HYPERTENSIVE URGENCY. 1- ACUTE ONSET SEIZURE OF UNCLEAR CAUSE 2- ELEVATED LIVER ENZYME. LIKELY RELATED ALCOHOL ABUSE 3--- THROMBOCYTOPENIA. COULD BE RELATED TO ALCOHOL ABUSE 4--- RIGHT LOWER EXTREMITY ULCER. CHRONIC ULCER. LIKELY RELATED TO VENOUS STASIS 5--- VENOUS STASIS WITH MILD CELLULITIS. HOLD ANTIBIOTICS FOR NOW. 6--- ELEVATED LACTIC ACID LEVEL OF UNCLEAR CAUSE. SEPSIS IS NOT SUSPECTED. COULD BE AN EARLY SIGN OF LIVER CIRRHOSIS 6A-- ELEVATED CK 7--- MORBID OBESITY. LIFESTYLE CHANGES WILL BE RECOMMENDED ON DISPOSITION PLAN PATIENT WILL BE ADMITTED TO THE ICU ON SEIZURE PRECAUTION STARTED ON KEPPRA INTRAVENOUSLY WILL SWITCH TO ORAL KEPPRA ALIN NEXT 24 HOURS NEEDED ATIVAN ORDERED CONSULT WITH NEURO TELE ONCE PATIENT IS ON THE FLOOR PATIENT MIGHT NEED EEG. THIS COULD BE DONE LATER DOWN THE LINE ASPIRATION PRECAUTIONS PATIENT IS FULLY AWAKE AND ALERT AT THIS TIME. POST ICTAL SYMPTOMS HAVE RESOLVED WILL START ON A CARDIAC DIET NEEDED BLOOD PRESSURE MEDICATION WILL BE ORDERED WELL CONTINUE HIS HOME MEDS INDICATED WILL CONSIDER STARTING ON CIWA PROTOCOL WELL DUE TO HISTORY OF ALCOHOL USE DAILY PATIENT IS ON ATIVAN NEEDED FOR NOW AVOID ALL LIVER TOXIC SUBSTANCES DAILY LAB TO FOLLOW MONITOR IMPROVED AND OUTPUT CLOSELY ADDITIONAL MANAGEMENT PER CLINICAL COURSE TRANSFERRED TO TERTIARY FACILITY FOR HIGHER LEVEL OF CARE Time Spent With Patient Critical Care time: I spent a total of [] minutes of critical care time on this patient's care today; this time is exclusive of procedural time.
[2021-07-24 15:34] LABS: UR Morphine/Opiate cutoff 300 Negative (Negative); Ur Creatinine Normal (Normal); Ur Specific Gravity Normal (Normal); Urine Amphetamines Negative (Negative); Urine Barbiturates Negative (Negative); Urine Benzodiazepines Negative (Negative); Urine Cocaine Negative (Negative); Urine MDMA Negative (Negative); Urine Methadone Negative (Negative); Urine Methamphetamines Negative (Negative); Urine Oxycodone Negative (Negative); Urine Phencyclidine Negative (Negative); Urine Tetrahydrocannabinol Positive (Negative); Urine Tricyclic Antidepressant Negative (Negative); Urine pH Normal (Normal)
[2021-07-24] MEDS: SODIUM CHLORIDE 0.9% 1,000 ML 100 ML IV (17:38)
[2021-07-24] MEDS: METOPROLOL TARTRATE 5 MG/5 ML INJ IV (17:44)
[2021-07-24 18:11] LABS: Amorphous Sediment Urine 1+; Bacteria Urine Few (2-10); Culture Indicated Urine Specimen Cultured; Mucus Urine 1+ (Negative); RBC Urine 1-5/HPF (0-5/HPF); Squamous Epithelial Cell Urine 0-1 /HPF (0-5/HPF); WBC Urine 1-5/HPF (0-5/HPF)
[2021-07-24 18:21] LABS: Add Manual Diff / Slide Review NO; Basophils Absolute Auto 100 /uL (0-100); Basophils Percent Auto 0.6 % (0-2); Eosinophils Absolute Auto 0 /uL (0-450); Hematocrit 43.1 % (41-53); Hemoglobin 14.2 g/dL (13.5-17.5); Lymphocytes Absolute Auto 3500 /uL (1100-4500); Lymphocytes Percent Auto 31.4 % (25-40); Mean Corpuscular Hemoglobin 31.5 PG (26-34); Mean Corpuscular Volume 95.3 fL (80-100); Monocytes Absolute Auto 800 /uL (0-900); Monocytes Percent Auto 7.5 % (3-14); Neutrophils Absolute Auto 6600 /uL (1500-7000); Neutrophils Percent Auto 60.5 % (50-75); Platelet Count 104 X10^3/uL (150-400); Red Blood Cell Count 4.52 X10^6/uL (4.5-5.9); Red Cell Distribution Width 14.1 % (11.6-14.8)
--- NOTE | 2021-07-24 18:24 | PM.DS.1 ---
History of Present Illness History of Present Illness Chief complaint: HIGH BLOOD PRESSURE Narrative: THIS IS A 60-YEAR-OLD MALE FOR PAST SURGICAL HISTORY SIGNIFICANT FOR HYPERTENSION, HYPERLIPIDEMIA, VENOUS STASIS, AND POSS ETOH ABUSE HE IS MORBIDLY OBESE. PATIENT ORIGINALLY CAME TO THE ER BECAUSE OF INABILITY TO CONTROL HIS BLOOD PRESSURE. HE TAKES MULTIPLE MEDICATIONS FOR HIS BLOOD PRESSURE WHICH INCLUDE METOPROLOL AND LISINOPRIL. HOWEVER HIS STATED THAT TODAY HE TOOK HIS MEDICATION BUT HIS BLOOD PRESSURE REMAINED ELEVATED. HIS AT BEDSIDE REPORTED THAT PATIENT STATED TO HER THAT HE WAS NOT FEELING WELL. SO THE DECISION WAS MADE TO BRING THE PATIENT TO THE ER. WHILE HE WAS IN THE ER, HIS LABS SHOWED AN ELEVATED LACTIC ACID LEVEL. HIS WBC HOWEVER WAS WITHIN NORMAL LIMITS. IMAGING DID NOT SHOW ANY PNEUMONIA OR INTRA-ABDOMINAL INFECTIOUS PROCESS. SHORTLY AFTER BEING ACCEPTED INTO OUR SERVICES, WHILE IN THE ER HAD A WITNESSED SEIZURE. HE WAS GIVEN ATIVAN AND SUBSEQUENTLY STARTED ON KEPPRA . SEIZURE ACTIVITY HAS COMPLETELY RESOLVED AT THIS TIME. CT SCAN OF THE BRAIN WAS NEGATIVE. Discharge Providers Provider Date of admission: 07/24/21 13:15 Discharge Date: 07/24/21 Consults: 07/24/21 16:26 Consult to Tele-special class welder Routine Comment: Consulting Provider: Lo [employer]intensiv[employer] Reason for consultation: Heater Room Helper services Discharge provider: Telma Newton, Summary Hospital Course Discharge Diagnosis: 0--- HYPERTENSIVE URGENCY. 1-? ACUTE ONSET SEIZURE OF UNCLEAR CAUSE 2- ? ELEVATED LIVER ENZYME.? 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 THROMBOCYTOPENIA.? COULD BE RELATED TO ALCOHOL ABUSE 4--- RIGHT LOWER EXTREMITY ? ULCER. ? CHRONIC ULCER.? LIKELY RELATED TO VENOUS STASIS 5--- VENOUS STASIS WITH? MILD CELLULITIS. HOLD ANTIBIOTICS FOR NOW. 6---? ELEVATED LACTIC ACID LEVEL OF UNCLEAR CAUSE. ? SEPSIS IS NOT SUSPECTED.? COULD BE AN EARLY SIGN OF LIVER? CIRRHOSIS 6A-- ELEVATED CK 7---? MORBID OBESITY.? ? LIFESTYLE CHANGES WILL BE RECOMMENDED ON DISPOSITION Hospital Course: PATIENT ADMITTED TO THE HOSPITAL WITH ACCELERATED HYPERTENSION VERSUS HYPERTENSIVE URGENCY. SUBSEQUENTLY HAD A SEIZURE ACTIVITY WHICH WAS WITNESSED BY THE ER STAFF. HE HAS BEEN GIVEN ATIVAN WELL KEPPRA NO ADDITIONAL ACTIVITIES SINCE THEN HE IS ALERT, AWAKE, ORIENTED X3. HE WILL NEED HIGHER LEVEL OF CARE AT A TERTIARY FACILITY TO BE EVALUATED BY NEUROLOGY TO WORKUP HIS SEIZURE PATIENT IS AGREEABLE. ADDITIONAL MANAGEMENT PER CLINICAL COURSE Status at Discharge Cognitive/behavioral status at discharge: oriented Functional status at discharge: independent ambulation Overall status at discharge: patient is progressing back to baseline Exam Vital Signs (past 8 hours): - 07/24/21 10:53 07/24/21 11:00 07/24/21 11:03 Temperature Pulse Rate 100 H 97 H 98 H Respiratory Rate 20 18 19 Blood Pressure 175/103 H 177/94 H Pulse Oximetry 94 94 92 07/24/21 11:12 07/24/21 11:15 07/24/21 11:30 Temperature Pulse Rate 101 H 102 H 102 H Respiratory Rate 22 21 15 Blood Pressure 180/88 H 183/96 H 185/95 H Pulse Oximetry 93 94 94 07/24/21 11:45 07/24/21 12:00 07/24/21 12:30 Temperature Pulse Rate 113 H 54 L 101 H Respiratory Rate 26 H 17 Blood Pressure 210/110 H 191/92 H Pulse Oximetry 95 95 92 07/24/21 12:53 07/24/21 13:00 07/24/21 13:15 Temperature 97.5 F L Pulse Rate 107 H 100 H 101 H Respiratory Rate 20 15 13 Blood Pressure 188/94 H 190/92 H 182/91 H Pulse Oximetry 97 95 94 07/24/21 13:30 07/24/21 13:45 07/24/21 14:07 Temperature Pulse Rate 103 H 103 H 128 H Respiratory Rate 19 17 23 Blood Pressure 178/87 H 184/89 H Pulse Oximetry 94 95 07/24/21 14:19 07/24/21 14:23 07/24/21 14:30 Temperature Pulse Rate 122 H 125 H 127 H Respiratory Rate 21 25 H 28 H Blood Pressure 142/64 H 134/62 152/66 H Pulse Oximetry 92 92 96 07/24/21 14:45 07/24/21 15:00 07/24/21 15:30 Temperature Pulse Rate 220 H 124 H 119 H Respiratory Rate 27 H 25 H 21 Blood Pressure 123/65 129/61 126/63 Pulse Oximetry 96 97 97 07/24/21 16:00 07/24/21 16:30 07/24/21 17:00 Temperature Pulse Rate 119 H 118 H 116 H Respiratory Rate 17 18 21 Blood Pressure 140/80 143/90 H 171/90 H Pulse Oximetry 97 97 98 11/28/21 17:30 07/24/21 17:31 07/24/21 17:37 Temperature Pulse Rate 116 H 117 H 119 H Respiratory Rate 17 19 18 Blood Pressure 163/84 H Pulse Oximetry 97 98 93 07/24/21 18:00 Temperature Pulse Rate 107 H Respiratory Rate 20 Blood Pressure 153/92 H Pulse Oximetry 92 Oxygen Delivery Method Room Air Objective Labs Result Diagrams: 07/24/21 16:00 07/24/21 10:35 Labs: Laboratory Results - last 24 hr 07/24/21 07/24/21 07/24/21 10:35 10:35 10:35 WBC 6.8 RBC 4.73 Hgb 14.8 Hct 43.8 MCV 92.5 MCH 31.3 MCHC 33.9 RDW 14.2 Plt Count 92 L Neut % (Auto) 69.5 Lymph % (Auto) 23.5 L [place] % (Auto) 6.5 Eos % (Auto) 0.0 L Baso % (Auto) 0.5 Neut # (Auto) 4700 Lymph # (Auto) 1600 [place] # (Auto) 400 Eos # (Auto) 0 Baso # (Auto) 0 Sodium 138 Potassium 3.9 Chloride 103 Carbon Dioxide 20 L BUN 9 Creatinine 0.90 Estimated GFR > 60.0 BUN/Creatinine Ratio 10.0 Glucose 119 H Lactate Calcium 9.5 Total Bilirubin 1.6 H AST 82 H ALT 52 H Alkaline Phosphatase 73 Total Creatine Kinase 503 H CK-MB (CK-2) 4.30 H CK-MB (CK-2) Rel Index 0.9 L Troponin I < 0.012 NT-Pro-B Natriuret Pep 30 Total Protein 7.9 Albumin 4.8 Globulin 3.1 Albumin/Globulin Ratio 1.5 Lipase 143 Procalcitonin Urine Color Urine Appearance Urine pH Ur Specific [place] Urine Protein Urine Glucose (UA) Urine Ketones Urine Occult Blood Urine Nitrate Urine Bilirubin Urine Urobilinogen Ur Leukocyte Esterase Urine RBC Urine WBC Ur Squamous Epith Cells Amorphous Sediment Urine Bacteria Urine Mucus Ur Culture Indicated? U Opiates 300ng/mL cut Ur Oxycodone Screen Urine Methadone Screen Ur Barbiturates Screen U Tricyclic Antidepress Ur Phencyclidine Scrn Ur Amphetamines Screen U Methamphetamines Scrn Ur MDMA Scrn (Ecstasy) U Benzodiazepines Scrn Urine Cocaine Screen U Marijuana (THC) Screen SARS-CoV-2 (PCR) 07/24/21 07/24/21 07/24/21 10:35 10:35 10:35 WBC RBC Hgb Hct MCV MCH MCHC RDW Plt Count Neut % (Auto) Lymph % (Auto) [place] % (Auto) Eos % (Auto) Baso % (Auto) Neut # (Auto) Lymph # (Auto) [place] # (Auto) Eos # (Auto) Baso # (Auto) Sodium Potassium Chloride Carbon Dioxide BUN Creatinine Estimated GFR BUN/Creatinine Ratio Glucose Lactate 4.3 H* Calcium Total Bilirubin AST ALT Alkaline Phosphatase Total Creatine Kinase CK-MB (CK-2) CK-MB (CK-2) Rel Index Troponin I NT-Pro-B Natriuret Pep Total Protein Albumin Globulin Albumin/Globulin Ratio Lipase Procalcitonin 0.11 Urine Color Urine Appearance Urine pH Ur Specific [place] Urine Protein Urine Glucose (UA) Urine Ketones Urine Occult Blood Urine Nitrate Urine Bilirubin Urine Urobilinogen Ur Leukocyte Esterase Urine RBC Urine WBC Ur Squamous Epith Cells Amorphous Sediment Urine Bacteria Urine Mucus Ur Culture Indicated? U Opiates 300ng/mL cut Ur Oxycodone Screen Urine Methadone Screen Ur Barbiturates Screen U Tricyclic Antidepress Ur Phencyclidine Scrn Ur Amphetamines Screen U Methamphetamines Scrn Ur MDMA Scrn (Ecstasy) U Benzodiazepines Scrn Urine Cocaine Screen U Marijuana (THC) Screen SARS-CoV-2 (PCR) Negative 07/24/21 07/24/21 07/24/21 11:45 12:11 12:11 WBC RBC Hgb Hct MCV MCH MCHC RDW Plt Count Neut % (Auto) Lymph % (Auto) [place] % (Auto) Eos % (Auto) Baso % (Auto) Neut # (Auto) Lymph # (Auto) [place] # (Auto) Eos # (Auto) Baso # (Auto) Sodium Potassium Chloride Carbon Dioxide BUN Creatinine Estimated GFR BUN/Creatinine Ratio Glucose Lactate Calcium Total Bilirubin AST ALT Alkaline Phosphatase Total Creatine Kinase CK-MB (CK-2) CK-MB (CK-2) Rel Index Troponin I NT-Pro-B Natriuret Pep Total Protein Albumin Globulin Albumin/Globulin Ratio Lipase Procalcitonin Urine Color Yellow Urine Appearance Clear Urine pH 6.0 Ur Specific [place] 1.015 Urine Protein 1+ H Urine Glucose (UA) Negative Urine Ketones 1+ H Urine Occult Blood Trace-lysed Urine Nitrate Negative Urine Bilirubin Negative Urine Urobilinogen 0.2 Ur Leukocyte Esterase Negative Urine RBC 0-1/hpf Urine WBC 0-1/hpf Ur Squamous Epith Cells 1-5 /hpf Amorphous Sediment Urine Bacteria Moderate (10-30) H Urine Mucus Ur Culture Indicated? Cult not indicated U Opiates 300ng/mL cut Negative Ur Oxycodone Screen Negative Urine Methadone Screen Negative Ur Barbiturates Screen Negative U Tricyclic Antidepress Negative Ur Phencyclidine Scrn Negative Ur Amphetamines Screen Negative U Methamphetamines Scrn Negative Ur MDMA Scrn (Ecstasy) Negative U Benzodiazepines Scrn Negative Urine Cocaine Screen Negative U Marijuana (THC) Screen Positive H SARS-CoV-2 (PCR) Negative 07/24/21 07/24/21 07/24/21 12:11 13:20 13:20 WBC RBC Hgb Hct MCV MCH MCHC RDW Plt Count Neut % (Auto) Lymph % (Auto) [place] % (Auto) Eos % (Auto) Baso % (Auto) Neut # (Auto) Lymph # (Auto) [place] # (Auto) Eos # (Auto) Baso # (Auto) Sodium Potassium Chloride Carbon Dioxide BUN Creatinine Estimated GFR BUN/Creatinine Ratio Glucose Lactate 3.1 H Calcium Total Bilirubin AST ALT Alkaline Phosphatase Total Creatine Kinase CK-MB (CK-2) CK-MB (CK-2) Rel Index Troponin I < 0.012 NT-Pro-B Natriuret Pep Total Protein Albumin Globulin Albumin/Globulin Ratio Lipase Procalcitonin Urine Color Urine Appearance Urine pH Ur Specific [place] Urine Protein Urine Glucose (UA) Urine Ketones Urine Occult Blood Urine Nitrate Urine Bilirubin Urine Urobilinogen Ur Leukocyte Esterase Urine RBC 1-5/hpf Urine WBC 1-5/hpf Ur Squamous Epith Cells 0-1 /hpf Amorphous Sediment 1+ Urine Bacteria Few (2-10) H Urine Mucus 1+ H Ur Culture Indicated? Specimen cultured U Opiates 300ng/mL cut Ur Oxycodone Screen Urine Methadone Screen Ur Barbiturates Screen U Tricyclic Antidepress Ur Phencyclidine Scrn Ur Amphetamines Screen U Methamphetamines Scrn Ur MDMA Scrn (Ecstasy) U Benzodiazepines Scrn Urine Cocaine Screen U Marijuana (THC) Screen SARS-CoV-2 (PCR) 07/24/21 16:00 WBC 11.0 D RBC 4.52 Hgb 14.2 Hct 43.1 MCV 95.3 MCH 31.5 MCHC 33.0 RDW 14.1 Plt Count 104 L Neut % (Auto) 60.5 Lymph % (Auto) 31.4 [place] % (Auto) 7.5 Eos % (Auto) 0.0 L Baso % (Auto) 0.6 Neut # (Auto) 6600 Lymph # (Auto) 3500 [place] # (Auto) 800 Eos # (Auto) 0 Baso # (Auto) 100 Sodium Potassium Chloride Carbon Dioxide BUN Creatinine Estimated GFR BUN/Creatinine Ratio Glucose Lactate Calcium Total Bilirubin AST ALT Alkaline Phosphatase Total Creatine Kinase CK-MB (CK-2) CK-MB (CK-2) Rel Index Troponin I NT-Pro-B Natriuret Pep Total Protein Albumin Globulin Albumin/Globulin Ratio Lipase Procalcitonin Urine Color Urine Appearance Urine pH Ur Specific [place] Urine Protein Urine Glucose (UA) Urine Ketones Urine Occult Blood Urine Nitrate Urine Bilirubin Urine Urobilinogen Ur Leukocyte Esterase Urine RBC Urine WBC Ur Squamous Epith Cells Amorphous Sediment Urine Bacteria Urine Mucus Ur Culture Indicated? U Opiates 300ng/mL cut Ur Oxycodone Screen Urine Methadone Screen Ur Barbiturates Screen U Tricyclic Antidepress Ur Phencyclidine Scrn Ur Amphetamines Screen U Methamphetamines Scrn Ur MDMA Scrn (Ecstasy) U Benzodiazepines Scrn Urine Cocaine Screen U Marijuana (THC) Screen SARS-CoV-2 (PCR) [facility] Social History Smoking Status: Never smoker Discharge Plan Discharge Plan Patient Disposition: [facility] Other facility: [facility] Under care of provider: DR KANIKA DURAN , HOSPITALIST Provider Discharge Comment: MUST ARRIVE TO [facility] BEFORE MIDNIGHT Diet/Activity/Treatments Diet: Low-fat and Low-cholesterol
[2021-07-24 18:28] LABS: Albumin 4.4 g/dL (3.5-5.0); Albumin Globulin Ratio 1.5 (1.0-2.8); Alkaline Phosphatase 66 U/L (38-126); Aspartate Aminotransferase 80 IU/L (17-59); BUN Creatinine Ratio 7.8 (6-22); Bilirubin Total 1.4 mg/dL (0.2-1.3); Blood Urea Nitrogen 8 mg/dL (9-20); Calcium 8.8 mg/dL (8.4-10.2); Carbon Dioxide 14 mmol/L (22-32); Chloride 104 mmol/L (98-107); Creatine Kinase 589 U/L (55-170); Estimated Glomerular Filt Rate > 60.0 mL/min (>60); Glucose 132 mg/dL (80-110); Potassium 3.9 mmol/L (3.4-5.1); Sodium 139 mmol/L (137-145); Total Protein 7.4 g/dL (6.3-8.2)
[2021-07-24 18:35] LABS: Alanine Aminotransferase 52 IU/L (<50); HEMOLYSIS 16 (0-50)
[2021-07-24 19:00] LABS: Lactate (Lactic Acid) 0.9 mmol/L (0.7-2.1)
--- NOTE | 2021-07-24 19:05 | PC.NURSE ---
rn in change of shift at 1905 called [phone] gave rn our phone number to call back for report after they are completed and that eta of ambulance getting here to er is [phone]
--- NOTE | 2021-07-24 19:55 | PC.NURSE ---
nurse to nurse report [phone] reema sandhu [facility]
[2021-07-24] MEDS: FAMOTIDINE 20 MG/2 ML VIAL IV (20:15)
[2021-07-24] MEDS: levETIRAcetam 1,000 MG in SODIUM CHLORIDE 0.9% 100 ML 440 ML IV (20:15)
== END 2021-07-24 21:00 | disposition admitted as inpatient to this hospital (09) ==
LOC: ED 13:07 → AC 18:23
PROVIDERS: Hospitalist; Emergency Provider Emergency Medicine; Family Provider Internal Medicine; Referring Provider Emergency Medicine
DX: A41.9 Sepsis, unspecified organism (principal); R56.9 Unspecified convulsions; Z68.41 Body mass index [BMI] 40.0-44.9, adult; L97.819 Non-pressure chronic ulcer of other part of right lower leg with unspecified severity; L03.115 Cellulitis of right lower limb; I16.0 Hypertensive urgency; E66.01 Morbid (severe) obesity due to excess calories; D69.59 Other secondary thrombocytopenia; I87.8 Other specified disorders of veins; R74.01 Elevation of levels of liver transaminase levels; F10.10 Alcohol abuse, uncomplicated
CPT/HCPCS: 36415; 70450; 71045; 71275; 74174; 80053; 80305; 81001; 81003; 81015; 82550; 82553; 82962; 83605; 83690; 83880; 84145; 84484; 85025; 87040; 87070; 87077; 87086; 87147; 87186; 87205; 87635; 93005; 96365; 96366; 96367; 96368; 96375; 99284; 99291; 99292; C9803; J1953; J2060; J2543; Q9967

== ENCOUNTER 2021-09-03 11:46 | Emergency (ER) | payer OTHER, SELFPAY ==
[2021-09-03 12:00] VITALS: BP 196/101; PULSE 87; RESP 14; TEMP 36.6; O2SAT 96; BMI 44.9
--- NOTE | 2021-09-03 12:18 | ED.RECABL ---
HPI - Recheck/Abnormal Lab/Rx <Chad Conrad PA-C - Last Filed: 09/03/21 14:49> General Chief Complaint: Recheck/Abnormal Lab/Rx Stated Complaint: Possible Sepsis Time Seen by Provider: 09/03/21 12:07 Source: patient Mode of arrival: Ambulatory History of Present Illness HPI narrative: Rupesh presents today with chief complaint of feeling ?off?. He reports the when he woke up this morning he started to feel that way. The last time he felt this way he had a large red rash and became septic. This was in November. He was hospitalized for a few days but reports that they never did any blood work to make sure the infection way. He denies any significant fever, headache, dizziness, chest pain, shortness of breath, exertional dyspnea, burning with urination, increased frequency urination, increased thirst, rash, unexpected weight changes, lower extremity swelling or edema above baseline, abdominal pain, nausea or any other acute concerns or complaints at this time. Related Data Home Medications Medication Instructions Recorded Confirmed lisinopril 20 mg tablet (Zestril) 20 mg PO QDAY #0 03/29/13 Previous Rx's Medication Instructions Recorded rifampin 300 mg capsule (Rifadin) 300 mg PO BID #20 03/29/13 sulfamethoxazole 800 2 tab PO BID #40 03/29/13 mg-trimethoprim 160 mg tablet Allergies Allergy/AdvReac Type Severity Reaction Status Date / Time No Known Drug Allergies Allergy Verified 09/03/21 12:04 Review of Systems <Chad Conrad PA-C - Last Filed: 09/03/21 14:49> Review of Systems Narrative: As per HPI Patient History <Chad Conrad PA-C - Last Filed: 09/03/21 14:49> Social History Smoking Status: Never smoker Smoking Status: Never smoker alcohol intake frequency: a few times a week Substance Use Type: marijuana Exam <SUMI Hurtado Last Filed: 09/03/21 14:49> Narrative Exam Narrative: Exam Narrative: Const General: cooperative, healthy appearing, comfortable, no acute distress, well developed and well groomed Nutritional Appearance: Elevated BMI Orientation: alert and oriented x3 HENMT Head: normal to inspection and atraumatic Ears: hearing grossly normal bilaterally Nose: external nose normal and nares normal Face and sinus: normal facial exam Neck Neck: normal visual inspection and supple Resp Effort & Inspection: normal respiratory effort, able to speak in complete sentences, no audible wheezes, not labored, no nasal flaring and no respiratory distress, clear to auscultation bilaterally Cardiac: Regular rate and rhythm, no discernible murmurs, rubs or gallops. 1+ pitting edema bilaterally. Neuro General: alert, oriented x3, gait normal, tone normal and moves all extremities, cranial nerves 2-12 grossly intact, no focal deficits Cognition: normal cognition Speech: speech normal Gait: normal gait Skin: Skin darkening/thickening to bilateral lower legs in the mckeon/calf area. No other rash or concerning lesions noted. Psych Appearance: grossly normal and well kempt Mental Status: mental status grossly normal Speech and Movement: speech and movement normal Mood: congruent mood Affect: normal affect Initial Vital Signs Initial Vital Signs: Vital Signs Temperature 97.9 F 09/03/21 12:00 Pulse Rate 87 09/03/21 12:00 Respiratory Rate 14 09/03/21 12:00 Blood Pressure 196/101 H 09/03/21 12:00 Pulse Oximetry 96 09/03/21 12:00 <DO Elias Conklin Last Filed: 09/04/21 07:33> Initial Vital Signs Initial Vital Signs: Vital Signs Temperature 97.9 F 09/03/21 12:00 Pulse Rate 87 09/03/21 12:00 Respiratory Rate 14 09/03/21 12:00 Blood Pressure 196/101 H 09/03/21 12:00 Pulse Oximetry 96 09/03/21 12:00 Course <Chad Conrad PA-C - Last Filed: 09/03/21 14:49> Orders Ordered: ED Orders 09/03/21 12:34 EKG-12 Lead Stat 09/03/21 12:44 COVID19 -Nasal swab/Pre-Proc Stat Vital Signs Vital signs: Vital Signs - 8 hr 09/03/21 12:00 09/03/21 12:56 09/03/21 14:11 Temperature 97.9 F 97.7 F Pulse Rate 87 75 84 Respiratory Rate 14 18 Blood Pressure 196/101 H 148/72 H 172/97 H Pulse Oximetry 96 96 96 <DO Elias Conklin Last Filed: 09/04/21 07:33> Orders Ordered: ED Orders 09/03/21 12:34 EKG-12 Lead Stat 09/03/21 12:44 COVID19 -Nasal swab/Pre-Proc Stat Vital Signs Vital signs: Vital Signs - 8 hr 09/03/21 12:00 09/03/21 12:56 09/03/21 14:11 Temperature 97.9 F 97.7 F Pulse Rate 87 75 84 Respiratory Rate 14 18 Blood Pressure 196/101 H 148/72 H 172/97 H Pulse Oximetry 96 96 96 MDM - Recheck/Abnormal Lab/Rx <Chad Conrad PA-C - Last Filed: 09/03/21 14:49> Lab Data Labs: Lab Results 09/03/21 Range/Units 12:44 SARS-CoV-2 (PCR) Negative (Negative) Point of Care Testing Glucose POC 106 Urine Dip Bedside Urine Glucose Negative Bedside Urine Bilirubin - Negative Bedside Urine Ketone - Negative Urine Specific [place] 1.020 Bedside Urine Occult Blood - Negative Bedside Urine pH 6 Bedside Urine Protein - Negative Bedside Urine Urobilinogen - Negative Bedside Urine Nitrite - Negative Bedside Urine Leukocytes - Negative Esterase MDM Narrative Medical decision making narrative: Differential diagnosis includes bacterial infection, COVID, UTI, hypoglycemia, ACS, hypertensive urgency. Patient is overall well appearing at this time. Examination is essentially normal. No physical examination evidence of any infectious source identified. EKG is reassuring without any significant ST or T-wave abnormalities. No signs of acute ischemia or arrhythmia. He was initially hypertensive but blood pressure came back down after being in the examination room. He also denies chest pain, exertional symptoms, shortness of breath or other anginal equivalent symptoms at this time. He is neurologically intact without any focal abnormalities. No recent medication adjustments. He reports that he is feeling much better now. His blood pressure has decreased. <Laura Gold DO - Last Filed: 09/04/21 07:33> Lab Data Labs: Lab Results 09/03/21 Range/Units 12:44 SARS-CoV-2 (PCR) Negative (Negative) Point of Care Testing Glucose POC 106 Urine Dip Bedside Urine Glucose Negative Bedside Urine Bilirubin - Negative Bedside Urine Ketone - Negative Urine Specific [place] 1.020 Bedside Urine Occult Blood - Negative Bedside Urine pH 6 Bedside Urine Protein - Negative Bedside Urine Urobilinogen - Negative Bedside Urine Nitrite - Negative Bedside Urine Leukocytes - Negative Esterase Discharge Plan Departure Patient Disposition: Home Clinical Impression: Hypertension Activity Restrictions/Additional Instructions: It was nice to meet you this afternoon. Your evaluation today has been reassuring. Please follow-up with your primary care provider. If you develop any worsening symptoms do not hesitate to return for re-evaluation. Thank you Chad Conrad PA-C Prescriptions: No Action lisinopril [Zestril] 20 MG tablet 20 mg PO QDAY Qty: 0 0RF sulfamethoxazole-trimethoprim 800 MG/160 MG tablet 2 tab PO BID Qty: 40 0RF rifampin [Rifadin] 300 MG capsule 300 mg PO BID Qty: 20 0RF Referrals: Aakash King MD [Primary Care Provider] - <Laura Gold DO - Last Filed: 09/04/21 07:33> Cosign ED Attending Alanna Attestation: I was immediately available in the department for consultation. Documentation has been reviewed.
[2021-09-03 12:56] VITALS: BP 148/72; PULSE 75; RESP 18; TEMP 36.5; O2SAT 96
[2021-09-03 13:44] LABS: COVID19 -Nasal RAPID Negative (Negative)
[2021-09-03 14:11] VITALS: BP 172/97; PULSE 84; O2SAT 96
== END 2021-09-03 14:11 | disposition home or self-care (01) ==
PROVIDERS: Emergency Provider Physician Assistant; Family Provider Internal Medicine; PCP Internal Medicine
DX: I10 Essential (primary) hypertension (principal); Z20.822 Contact with and (suspected) exposure to COVID-19
CPT/HCPCS: 81003; 82962; 87635; 93005; 93010; 99282; 99283; C9803

== ENCOUNTER 2021-12-01 14:21 | Emergency (ER) | payer OTHER, SELFPAY ==
[2021-12-01] VITALS (16 sets, daily range): BP systolic 162–194; BP diastolic 75–111; PULSE 71–91; RESP 18–20; TEMP 36.6; O2SAT 95–98; BMI 46.2
--- NOTE | 2021-12-01 14:38 | DI.RAD.S_ITS ---
PROCEDURE: XR CHEST 2V INDICATIONS: shortness of breath TECHNIQUE: 2 views of the chest were acquired. COMPARISON: [facility], , XR CHEST 1V, 07/24/2021, 10:41. FINDINGS: Surgical changes and devices: None. Lungs and pleura: Lungs are clear. No pleural effusions or pneumothorax. Mediastinum: Mediastinal contours are normal. Heart size is normal. Bones and chest wall: No suspicious bony abnormalities. Soft tissues appear unremarkable. IMPRESSION: No acute pulmonary process. Dictated by: Nina Gaines M.D. on 12/01/2021 at 15:08 Approved by: Nina Gaines M.D. on 12/01/2021 at 15:09
[2021-12-01 14:50] LABS: Add Manual Diff / Slide Review NO; Basophils Absolute Auto 0 /uL (0-100); Basophils Percent Auto 0.4 % (0-2); Eosinophils Absolute Auto 0 /uL (0-450); Hematocrit 39.4 % (41-53); Hemoglobin 13.5 g/dL (13.5-17.5); Lymphocytes Absolute Auto 1200 /uL (1100-4500); Lymphocytes Percent Auto 23.8 % (25-40); Mean Corpuscular HGB Conc 34.3 % (30-36); Mean Corpuscular Hemoglobin 31.5 PG (26-34); Mean Corpuscular Volume 91.9 fL (80-100); Monocytes Absolute Auto 500 /uL (0-900); Monocytes Percent Auto 10.2 % (3-14); Neutrophils Absolute Auto 3300 /uL (1500-7000); Neutrophils Percent Auto 65.6 % (50-75); Platelet Count 86 X10^3/uL (150-400); Red Blood Cell Count 4.29 X10^6/uL (4.5-5.9)
[2021-12-01 14:56] LABS: INR 1.2 (0.9-1.3); Prothrombin Time 13.4 SECONDS (10.1-12.7)
--- NOTE | 2021-12-01 14:56 | DI.US.S_ITS ---
PROCEDURE: US PERIPH VENOUS LOW EXTREM BI INDICATIONS: LOWER EXTREMITY SWELLING AND PAIN TECHNIQUE: Real-time imaging, as well as color and pulse Doppler interrogation, were performed of the deep veins of both legs from the inguinal ligament to the popliteal fossa. COMPARISON: None. FINDINGS: Right: The common femoral, femoral and popliteal veins are normally compressible, and free of intraluminal thrombus. Color and pulse Doppler demonstrate normal phasic intravascular flow. There is normal augmentation response to distal compression maneuver. Left: The common femoral, femoral and popliteal veins are normally compressible, and free of intraluminal thrombus. Color and pulse Doppler demonstrate normal phasic intravascular flow. There is normal augmentation response to distal compression maneuver. IMPRESSION: No sonographic evidence of DVT. Dictated by: Calin Ramirez M.D. on 12/01/2021 at 16:08 Approved by: Calin Ramirez M.D. on 12/01/2021 at 16:10
[2021-12-01 15:01] LABS: Alanine Aminotransferase 50 IU/L (<50); Albumin 4.5 g/dL (3.5-5.0); Albumin Globulin Ratio 1.4 (1.0-2.8); Alkaline Phosphatase 46 U/L (38-126); Aspartate Aminotransferase 68 IU/L (17-59); BUN Creatinine Ratio 16.3 (6-22); Bilirubin Total 2.2 mg/dL (0.2-1.3); Blood Urea Nitrogen 15 mg/dL (9-20); Calcium 9.1 mg/dL (8.4-10.2); Carbon Dioxide 26 mmol/L (22-32); Chloride 102 mmol/L (98-107); Creatine Kinase 574 U/L (55-170); Estimated Glomerular Filt Rate > 60.0 mL/min (>60); Globulin 3.2 g/dL (1.7-4.1); Glucose 121 mg/dL (80-110); HEMOLYSIS < 15 (0-50); Potassium 4.1 mmol/L (3.4-5.1); Sodium 139 mmol/L (137-145); Total Protein 7.7 g/dL (6.3-8.2)
[2021-12-01 15:09] LABS: NT-proBNP (BNP-Adult 18+) 256 pg/mL (<125)
[2021-12-01 15:13] LABS: Troponin I < 0.012 ng/mL (0.01-0.034)
[2021-12-01 15:16] LABS: CKMB % Relative Index 0.7 % (1.5-5.0); Creatine Kinase MB 4.24 ng/mL (<2.37)
--- NOTE | 2021-12-01 15:33 | ED.GENADULT ---
HPI - General Adult <José Garrett PA-C - Last Filed: 12/01/21 20:38> General Chief complaint: Hypertension Stated complaint: High Blood pressure since yesterday Time Seen by Provider: 12/01/21 14:41 History of Present Illness HPI narrative: Patient is a 61-year-old male presenting to the emergency department today for an evaluation elevated blood pressure. Patient explains that he usually reports his blood pressure with the systolics somewhere in the 140s, however he notes that over the past 2 days his systolic blood pressure has been in 170 to 180s. Additionally, he has noticed increased swelling in the legs bilaterally over the past 2 days. Of note, patient was admitted in June 2021 for sepsis and was transferred to the [facility] after experiencing a seizure during his admission. He explains that he began to experience lightheadedness at work yesterday and was sent home. Patient reports taking losartan 100 mg daily, metoprolol 50 mg daily 20 mg of furosemide daily, Keppra, and a daily aspirin. He denies fever, chills, chest pain, cough, shortness of breath, nausea, vomiting, diarrhea, constipation, abdominal pain, dysuria, hematuria, diaphoresis, jaw pain, pain in the upper extremities, chest pain radiating to the back, syncope, or any other concerning symptoms. No further concerns were voiced at this time. Related Data Home Medications Medication Instructions Recorded Confirmed lisinopril 20 mg tablet (Zestril) 20 mg PO QDAY #0 03/29/13 Previous Rx's Medication Instructions Recorded rifampin 300 mg capsule (Rifadin) 300 mg PO BID #20 03/29/13 sulfamethoxazole 800 2 tab PO BID #40 03/29/13 mg-trimethoprim 160 mg tablet Allergies Allergy/AdvReac Type Severity Reaction Status Date / Time No Known Drug Allergies Allergy Verified 09/03/21 12:04 Review of Systems <José Garrett PA-C - Last Filed: 12/01/21 20:38> Constitutional Constitutional: Denies chills, Denies fatigue, Denies fever(s), Denies frequent falls, Denies lethargy and Denies weakness Eyes Eyes: Denies loss of vision ENT Ears, Nose, Mouth, and Throat: Denies dizziness and Denies neck pain Cardiovascular Cardiovascular: Denies chest pain, Denies irregular heart rhythm, Denies lightheadedness, Denies palpitations, Denies dyspnea, Denies dyspnea on exertion, Denies orthopnea and Reports other (Elevated blood pressure) Respiratory Respiratory: Denies cough, Denies dyspnea, Denies dyspnea on exertion and Denies wheezing Gastrointestinal Gastrointestinal: Denies abdominal pain, Denies change in bowel habits, Denies diarrhea, Denies nausea and Denies vomiting Genitourinary Genitourinary: Denies hematuria, Denies flank pain, Denies urinary incontinence and Denies urinary urgency Musculoskeletal Musculoskeletal: Denies back pain, Denies muscle weakness, Denies neck pain, Denies numbness and Denies tingling Integumentary/Breasts Skin/Breast: Denies pruritus, Denies erythema, Denies rash and Denies wounds Neurologic Neurologic: Denies behavioral changes, Denies confusion, Denies dizziness, Denies frequent falls, Denies loss of vision, Denies numbness, Denies tingling, Denies weakness and Reports other (Lightheadedness) Psychiatric Psychiatric: Denies behavioral changes and Denies confusion Endocrine Endocrine: Denies fatigue and Denies palpitations Allergic/Immunologic Allergic/Immunologic: Denies wheezing Patient History <José Garrett PA-C - Last Filed: 12/01/21 20:38> Social History Smoking Status: Never smoker Smoking Status: Never smoker alcohol intake frequency: a few times a week Substance Use Type: marijuana Exam <José Garrett PA-C - Last Filed: 12/01/21 20:38> Narrative Exam Narrative: GENERAL: 61 year old patient appears stated age. Well-developed patient, in no acute distress. Large body habitus. HEAD: Atraumatic. Normocephalic. EYES: Pupils equal round and reactive. Extraocular motions intact. No scleral icterus. No injection or drainage. ENT: Nose without bleeding, purulent drainage. Throat without erythema, tonsillar hypertrophy or exudate. Airway patent. NECK: Trachea midline. Non tender CARDIOVASCULAR: Regular rate and rhythm without murmurs, gallops, or rubs. RESPIRATORY: Clear to auscultation. Breath sounds equal bilaterally. No wheezes, rales, or rhonchi. GASTROINTESTINAL: Abdomen soft, non-tender, nondistended. EXTREMITIES: 2+ pitting edema noted in the bilateral lower extremities. No significant tenderness noted throughout the bilateral lower extremities to palpation. Negative Homans sign. Calves are soft and nontender. BACK: Nontender without deformity or crepitance. No flank tenderness. NEURO: AOx3. SKIN: No rash or erythema of visible areas Initial Vital Signs Initial Vital Signs: Vital Signs Temperature 97.9 F 12/01/21 14:29 Pulse Rate 82 12/01/21 14:29 Respiratory Rate 20 12/01/21 14:29 Blood Pressure 189/111 H 12/01/21 14:29 Pulse Oximetry 98 12/01/21 14:29 <Marva Cabral DO - Last Filed: 12/02/21 07:18> Initial Vital Signs Initial Vital Signs: Vital Signs Temperature 97.9 F 12/01/21 14:29 Pulse Rate 82 12/01/21 14:29 Respiratory Rate 20 12/01/21 14:29 Blood Pressure 189/111 H 12/01/21 14:29 Pulse Oximetry 98 12/01/21 14:29 Course <José Garrett PA-C - Last Filed: 12/01/21 20:38> Course Course Narrative: CBC. CMP, BNP, lactic acid, PT/INR, troponin with repeat troponin, chest x-ray, bilateral venous lower extremity ultrasound, EKG ordered. Orders Ordered: ED Orders 12/01/21 14:38 XR chest 2V Stat EKG-12 Lead Stat 12/01/21 14:46 Complete Blood Count AUTO DIFF Stat Comprehensive Metabolic Panel Stat Lactate (Lactic Acid) Stat NT-proBNP (BNP-Adult 18+) Stat Prothrombin Time INR Stat Troponin & CK Cardiac Panel Stat 12/01/21 14:56 US periph venous low extrem bi Stat 12/01/21 16:45 Trop I [Troponin I] Stat Vital Signs Vital signs: Vital Signs - 8 hr 12/01/21 14:29 12/01/21 15:07 12/01/21 15:23 Temperature 97.9 F Pulse Rate 82 84 91 H Respiratory Rate 20 18 Blood Pressure 189/111 H 169/84 H Pulse Oximetry 98 95 97 12/01/21 15:30 12/01/21 15:31 12/01/21 16:00 Temperature Pulse Rate 71 73 80 Respiratory Rate 20 Blood Pressure 175/80 H Pulse Oximetry 98 97 97 12/01/21 16:01 12/01/21 16:30 12/01/21 16:31 Temperature Pulse Rate 82 84 80 Respiratory Rate 20 Blood Pressure 176/87 H 194/81 H Pulse Oximetry 96 97 97 12/01/21 16:44 12/01/21 17:00 12/01/21 17:01 Temperature Pulse Rate 77 79 75 Respiratory Rate Blood Pressure 162/75 H 168/84 H Pulse Oximetry 96 98 97 12/01/21 17:30 12/01/21 17:31 12/01/21 18:00 Temperature Pulse Rate 72 76 80 Respiratory Rate Blood Pressure 169/79 H Pulse Oximetry 97 97 95 12/01/21 18:01 Temperature Pulse Rate 80 Respiratory Rate Blood Pressure 177/87 H Pulse Oximetry 96 <Marva Cabral, DO - Last Filed: 12/02/21 07:18> Orders Ordered: ED Orders 12/01/21 14:38 XR chest 2V Stat EKG-12 Lead Stat 12/01/21 14:46 Complete Blood Count AUTO DIFF Stat Comprehensive Metabolic Panel Stat Lactate (Lactic Acid) Stat NT-proBNP (BNP-Adult 18+) Stat Prothrombin Time INR Stat Troponin & CK Cardiac Panel Stat 12/01/21 14:56 US periph venous low extrem bi Stat 12/01/21 16:45 Trop I [Troponin I] Stat Vital Signs Vital signs: Vital Signs - 8 hr 12/01/21 14:29 12/01/21 15:07 12/01/21 15:23 Temperature 97.9 F Pulse Rate 82 84 91 H Respiratory Rate 20 18 Blood Pressure 189/111 H 169/84 H Pulse Oximetry 98 95 97 12/01/21 15:30 12/01/21 15:31 12/01/21 16:00 Temperature Pulse Rate 71 73 80 Respiratory Rate 20 Blood Pressure 175/80 H Pulse Oximetry 98 97 97 12/01/21 16:01 12/01/21 16:30 12/01/21 16:31 Temperature Pulse Rate 82 84 80 Respiratory Rate 20 Blood Pressure 176/87 H 194/81 H Pulse Oximetry 96 97 97 12/01/21 16:44 12/01/21 17:00 12/01/21 17:01 Temperature Pulse Rate 77 79 75 Respiratory Rate Blood Pressure 162/75 H 168/84 H Pulse Oximetry 96 98 97 12/01/21 17:30 12/01/21 17:31 12/01/21 18:00 Temperature Pulse Rate 72 76 80 Respiratory Rate Blood Pressure 169/79 H Pulse Oximetry 97 97 95 12/01/21 18:01 Temperature Pulse Rate 80 Respiratory Rate Blood Pressure 177/87 H Pulse Oximetry 96 Medical Decision Making <José Garrett PA-C - Last Filed: 12/01/21 20:38> Lab Data Result diagrams: 12/01/21 14:46 12/01/21 14:46 Labs: Lab Results 12/01/21 12/01/21 12/01/21 Range/Units 14:46 14:46 14:46 WBC 5.0 (4.5-11.0) X10^3/uL RBC 4.29 L (4.5-5.9) X10^6/uL Hgb 13.5 (13.5-17.5) g/dL Hct 39.4 L (41-53) % MCV 91.9 (80-100) fL MCH 31.5 (26-34) PG MCHC 34.3 (30-36) % RDW 14.0 (11.6-14.8) % Plt Count 86 L (150-400) X10^3/uL Neut % (Auto) 65.6 (50-75) % Lymph % (Auto) 23.8 L (25-40) % [place] % (Auto) 10.2 (3-14) % Eos % (Auto) 0.0 L (2-4) % Baso % (Auto) 0.4 (0-2) % Neut # (Auto) 3300 (2782-6681) /uL Lymph # (Auto) 1200 (9117-9675) /uL [place] # (Auto) 500 (0-900) /uL Eos # (Auto) 0 (0-450) /uL Baso # (Auto) 0 (0-100) /uL PT 13.4 H (10.1-12.7) SECONDS INR 1.2 (0.9-1.3) Sodium 139 (137-145) mmol/L Potassium 4.1 (3.4-5.1) mmol/L Chloride 102 (98-107) mmol/L Carbon Dioxide 26 (22-32) mmol/L BUN 15 (9-20) mg/dL Creatinine 0.92 (0.66-1.25) mg/dL Estimated GFR > 60.0 (>60) mL/min BUN/Creatinine Ratio 16.3 (6-22) Glucose 121 H (80-110) mg/dL Lactate (0.7-2.1) mmol/L Calcium 9.1 (8.4-10.2) mg/dL Total Bilirubin 2.2 H (0.2-1.3) mg/dL AST 68 H (17-59) IU/L ALT 50 H (<50) IU/L Alkaline Phosphatase 46 (38-126) U/L Total Creatine Kinase (55-170) U/L CK-MB (CK-2) (<2.37) ng/mL CK-MB (CK-2) Rel Index (1.5-5.0) % Troponin I (0.01-0.034) ng/mL NT-Pro-B Natriuret Pep 256 H (<125) pg/mL Total Protein 7.7 (6.3-8.2) g/dL Albumin 4.5 (3.5-5.0) g/dL Globulin 3.2 (1.7-4.1) g/dL Albumin/Globulin Ratio 1.4 (1.0-2.8) 12/01/21 12/01/21 12/01/21 Range/Units 14:46 14:46 16:45 WBC (4.5-11.0) X10^3/uL RBC (4.5-5.9) X10^6/uL Hgb (13.5-17.5) g/dL Hct (41-53) % MCV (80-100) fL MCH (26-34) PG MCHC (30-36) % RDW (11.6-14.8) % Plt Count (150-400) X10^3/uL Neut % (Auto) (50-75) % Lymph % (Auto) (25-40) % [place] % (Auto) (3-14) % Eos % (Auto) (2-4) % Baso % (Auto) (0-2) % Neut # (Auto) (1649-5431) /uL Lymph # (Auto) (9046-8965) /uL [place] # (Auto) (0-900) /uL Eos # (Auto) (0-450) /uL Baso # (Auto) (0-100) /uL PT (10.1-12.7) SECONDS INR (0.9-1.3) Sodium (137-145) mmol/L Potassium (3.4-5.1) mmol/L Chloride (98-107) mmol/L Carbon Dioxide (22-32) mmol/L BUN (9-20) mg/dL Creatinine (0.66-1.25) mg/dL Estimated GFR (>60) mL/min BUN/Creatinine Ratio (6-22) Glucose (80-110) mg/dL Lactate 1.0 (0.7-2.1) mmol/L Calcium (8.4-10.2) mg/dL Total Bilirubin (0.2-1.3) mg/dL AST (17-59) IU/L ALT (<50) IU/L Alkaline Phosphatase (38-126) U/L Total Creatine Kinase 574 H (55-170) U/L CK-MB (CK-2) 4.24 H (<2.37) ng/mL CK-MB (CK-2) Rel Index 0.7 L (1.5-5.0) % Troponin I < 0.012 0.014 (0.01-0.034) ng/mL NT-Pro-B Natriuret Pep (<125) pg/mL Total Protein (6.3-8.2) g/dL Albumin (3.5-5.0) g/dL Globulin (1.7-4.1) g/dL Albumin/Globulin Ratio (1.0-2.8) Imaging Data Chest x-ray: Radiologist's Impression: PROCEDURE:? XR CHEST 2V ? INDICATIONS:? shortness of breath ? TECHNIQUE:? 2 views of the chest were acquired.? ? COMPARISON:? [facility], CR, XR CHEST 1V, 07/24/2021, 10:41. ? FINDINGS:? ? Surgical changes and devices:? None.? ? Lungs and pleura:? Lungs are clear.? No pleural effusions or pneumothorax.? ? Mediastinum:? Mediastinal contours are normal.? Heart size is normal.? ? Bones and chest wall:? No suspicious bony abnormalities.? Soft tissues appear unremarkable.? ? IMPRESSION:? No acute pulmonary process. ? ? Dictated by: Nina Gaines M.D. on 12/01/2021 at 15:08 ? ? Approved by: Nina Gaines M.D. on 12/01/2021 at 15:09 ? US - DVT: Radiologist's Impression: PROCEDURE:? US PERIPH VENOUS LOW EXTREM BI ? INDICATIONS:? LOWER EXTREMITY SWELLING AND PAIN ? TECHNIQUE:? Real-time imaging, as well as color and pulse Doppler interrogation, were performed of the deep veins of both legs from the inguinal ligament to the popliteal fossa.? ? COMPARISON:? None. ? FINDINGS:? ? Right: The common femoral, femoral and popliteal veins are normally compressible, and free of intraluminal thrombus.? Color and pulse Doppler demonstrate normal phasic intravascular flow.? There is normal augmentation response to distal compression maneuver.? ? Left: The common femoral, femoral and popliteal veins are normally compressible, and free of intraluminal thrombus.? Color and pulse Doppler demonstrate normal phasic intravascular flow.? There is normal augmentation response to distal compression maneuver.? ? ? IMPRESSION:? No sonographic evidence of DVT. ? ? Dictated by: Calin Ramirez M.D. on 12/01/2021 at 16:08 ? ? Approved by: Calin Ramirez M.D. on 12/01/2021 at 16:10 ? MDM Narrative Medical decision making narrative: Differential diagnosis to consider another limited to DVT versus hypertension versus acute aortic syndrome versus myocardial infarction. I discussed results of imaging and lab studies with patient informed him that no acute abnormality was identified today. I did discuss results of low platelet count had elevated liver function tests along with an increased BNP and CK MB. I informed the patient that the findings of low platelet count and elevated liver functioning tests were identified back in June, however the increase in BNP and CK MB may be associated with his increased blood pressure. I urged the patient to follow-up with his primary care provider regarding restarting hydrochlorothiazide as it appears that his symptoms have worsened since discontinuing hydrochlorothiazide. Patient expresses understanding agrees to plan. He states at this time is comfortable being discharged home and is stable for discharge. Strict return precautions were discussed with the patient prior to discharge. <Marva Cabral, DO - Last Filed: 12/02/21 07:18> Lab Data Labs: Lab Results 12/01/21 12/01/21 12/01/21 Range/Units 14:46 14:46 14:46 WBC 5.0 (4.5-11.0) X10^3/uL RBC 4.29 L (4.5-5.9) X10^6/uL Hgb 13.5 (13.5-17.5) g/dL Hct 39.4 L (41-53) % MCV 91.9 (80-100) fL MCH 31.5 (26-34) PG MCHC 34.3 (30-36) % RDW 14.0 (11.6-14.8) % Plt Count 86 L (150-400) X10^3/uL Neut % (Auto) 65.6 (50-75) % Lymph % (Auto) 23.8 L (25-40) % [place] % (Auto) 10.2 (3-14) % Eos % (Auto) 0.0 L (2-4) % Baso % (Auto) 0.4 (0-2) % Neut # (Auto) 3300 (3539-1024) /uL Lymph # (Auto) 1200 (7782-7643) /uL [place] # (Auto) 500 (0-900) /uL Eos # (Auto) 0 (0-450) /uL Baso # (Auto) 0 (0-100) /uL PT 13.4 H (10.1-12.7) SECONDS INR 1.2 (0.9-1.3) Sodium 139 (137-145) mmol/L Potassium 4.1 (3.4-5.1) mmol/L Chloride 102 (98-107) mmol/L Carbon Dioxide 26 (22-32) mmol/L BUN 15 (9-20) mg/dL Creatinine 0.92 (0.66-1.25) mg/dL Estimated GFR > 60.0 (>60) mL/min BUN/Creatinine Ratio 16.3 (6-22) Glucose 121 H (80-110) mg/dL Lactate (0.7-2.1) mmol/L Calcium 9.1 (8.4-10.2) mg/dL Total Bilirubin 2.2 H (0.2-1.3) mg/dL AST 68 H (17-59) IU/L ALT 50 H (<50) IU/L Alkaline Phosphatase 46 (38-126) U/L Total Creatine Kinase (55-170) U/L CK-MB (CK-2) (<2.37) ng/mL CK-MB (CK-2) Rel Index (1.5-5.0) % Troponin I (0.01-0.034) ng/mL NT-Pro-B Natriuret Pep 256 H (<125) pg/mL Total Protein 7.7 (6.3-8.2) g/dL Albumin 4.5 (3.5-5.0) g/dL Globulin 3.2 (1.7-4.1) g/dL Albumin/Globulin Ratio 1.4 (1.0-2.8) 12/01/21 12/01/21 12/01/21 Range/Units 14:46 14:46 16:45 WBC (4.5-11.0) X10^3/uL RBC (4.5-5.9) X10^6/uL Hgb (13.5-17.5) g/dL Hct (41-53) % MCV (80-100) fL MCH (26-34) PG MCHC (30-36) % RDW (11.6-14.8) % Plt Count (150-400) X10^3/uL Neut % (Auto) (50-75) % Lymph % (Auto) (25-40) % [place] % (Auto) (3-14) % Eos % (Auto) (2-4) % Baso % (Auto) (0-2) % Neut # (Auto) (9541-8744) /uL Lymph # (Auto) (0158-0587) /uL [place] # (Auto) (0-900) /uL Eos # (Auto) (0-450) /uL Baso # (Auto) (0-100) /uL PT (10.1-12.7) SECONDS INR (0.9-1.3) Sodium (137-145) mmol/L Potassium (3.4-5.1) mmol/L Chloride (98-107) mmol/L Carbon Dioxide (22-32) mmol/L BUN (9-20) mg/dL Creatinine (0.66-1.25) mg/dL Estimated GFR (>60) mL/min BUN/Creatinine Ratio (6-22) Glucose (80-110) mg/dL Lactate 1.0 (0.7-2.1) mmol/L Calcium (8.4-10.2) mg/dL Total Bilirubin (0.2-1.3) mg/dL AST (17-59) IU/L ALT (<50) IU/L Alkaline Phosphatase (38-126) U/L Total Creatine Kinase 574 H (55-170) U/L CK-MB (CK-2) 4.24 H (<2.37) ng/mL CK-MB (CK-2) Rel Index 0.7 L (1.5-5.0) % Troponin I < 0.012 0.014 (0.01-0.034) ng/mL NT-Pro-B Natriuret Pep (<125) pg/mL Total Protein (6.3-8.2) g/dL Albumin (3.5-5.0) g/dL Globulin (1.7-4.1) g/dL Albumin/Globulin Ratio (1.0-2.8) ECG Data Interpretation: Normal sinus rhythm rate 78 MO interval 162 QRS [address] changes no T-wave inversions similar to previous EKG Discharge Plan Departure Patient Disposition: Home Clinical Impression: Hypertension, Leg swelling Instructions: DI for High Blood Pressure Activity Restrictions/Additional Instructions: *You have been diagnosed with hypertension, leg swelling *What to do: *Please continue to take your regular medications as directed. [ ] New medication prescriptions sent to your pharmacy: [ ] [ ] New medication written as a paper prescription [X] No new medications given You were evaluated in the emergency department today for increased blood pressure and leg swelling. Lab studies and imaging obtained in the emergency department today did not show signs of acute abnormality. Your platelet count was low and your liver functioning enzymes were slightly high, however these findings were not significantly changed from your last lab studies performed back in June of 2021. You did have an increased BNP a and CK-MB today, however this may have been associated with increased blood pressure. I do recommend you follow-up with your primary care provider for further evaluation of these lab abnormalities, and I encourage you to discuss the possibility of restarting hydrochlorothiazide. Please do not hesitate to return to the emergency department if you experience further increases in blood pressure, lightheadedness, loss of consciousness, chest pain, or any other concerning symptoms. *Please follow up with your primary care provider in 2-3 days, call for an appointment. Let them know you were seen in the Emergency Department and that we ask that you be seen in follow up. We will electronically transmit a record of today's note if your PCP is in our system *If you do not have a primary care provider please contact the [facility] Resource line at [phone]. They will ask some questions about your medical history and help get you set up with a doctor in the community. *Return to Emergency Department if you should have any new, worsening or concerning symptoms, such as fever greater than 101 F, shaking chills, worsening pain, persistent vomiting or other bothersome symptoms. Prescriptions: No Action lisinopril [Zestril] 20 MG tablet 20 mg PO QDAY Qty: 0 0RF sulfamethoxazole-trimethoprim 800 MG/160 MG tablet 2 tab PO BID Qty: 40 0RF rifampin [Rifadin] 300 MG capsule 300 mg PO BID Qty: 20 0RF Referrals: Aakash King MD [Primary Care Provider] - <Marva Cabral DO - Last Filed: 12/02/21 07:18> Cosign ED Attending Cosgerardature Attestation: I was immediately available in the department for consultation. Documentation has been reviewed. I agree with assessment and plan.
--- NOTE | 2021-12-01 15:41 | PC.NURSE ---
Pt reports elevated blood pressure readings, taking blood pressure medications as prescribed. Increased lower extremity edema, recently switched to lasix from a different diuretic.
[2021-12-01 17:13] LABS: Troponin I 0.014 ng/mL (0.01-0.034)
== END 2021-12-01 18:04 | disposition home or self-care (01) ==
PROVIDERS: Emergency Medicine; Emergency Provider Physician Assistant; Family Provider Internal Medicine; PCP Internal Medicine
DX: I10 Essential (primary) hypertension (principal); R60.0 Localized edema; Z79.899 Other long term (current) drug therapy
CPT/HCPCS: 36415; 71046; 80053; 82550; 82553; 83605; 83880; 84484; 85025; 85610; 93005; 93010; 93970; 99284

== ENCOUNTER 2022-06-26 11:54 | Emergency (ER) | payer OTHER, SELFPAY ==
[2022-06-26 12:00] VITALS: BP 122/63; PULSE 94; RESP 20; TEMP 36.8; O2SAT 94; BMI 44.9
[2022-06-26 12:45] LABS: Add Manual Diff / Slide Review NO; Basophils Absolute Auto 0 /uL (0-100); Basophils Percent Auto 0.4 % (0-2); Eosinophils Absolute Auto 0 /uL (0-450); Hematocrit 34.9 % (41-53); Lymphocytes Absolute Auto 1300 /uL (1100-4500); Mean Corpuscular HGB Conc 34.5 % (30-36); Mean Corpuscular Hemoglobin 33.6 PG (26-34); Mean Corpuscular Volume 97.3 fL (80-100); Monocytes Absolute Auto 900 /uL (0-900); Monocytes Percent Auto 13.9 % (3-14); Neutrophils Absolute Auto 4300 /uL (1500-7000); Neutrophils Percent Auto 65.7 % (50-75); Platelet Count 70 X10^3/uL (150-400); Red Blood Cell Count 3.58 X10^6/uL (4.5-5.9); Red Cell Distribution Width 13.9 % (11.6-14.8); White Blood Cell Count 6.5 X10^3/uL (4.5-11.0)
--- NOTE | 2022-06-26 12:48 | ED.LOWEXIN ---
HPI - Extremity Injury (Lower) General Chief Complaint: Extremity Injury, Lower Stated Complaint: sent by [facility] V[facility] infection in leg Time Seen by Provider: 06/26/22 12:07 Source: patient Mode of arrival: Ambulatory History of Present Illness HPI Narrative: 61-year-old male nonsmoker with history of hypertension and extensive peripheral vascular disease presents with a poorly healing wound in his left anterior mckeon for the past 2 weeks. He states that he was moving a grill and it slipped from his grasp and he bumped his mckeon, he states there was no significant trauma or even a cut but he developed a wound. He has been worked up by vascular in [place] and reports poor blood flow which is evidenced by bilateral chronic venous stasis. He states that when they noted his poorly healing wound they encouraged him to present to an emergency department for evaluation. He denies systemic complaints such as fever, chills nor nausea or vomiting. He is not dizzy nor weak or lightheaded. He denies any drainage or significant pain. Related Data Home Medications Medication Instructions Recorded Confirmed lisinopril 20 mg tablet (Zestril) 20 mg PO QDAY ##0 03/29/13 Previous Rx's Medication Instructions Recorded rifampin 300 mg capsule (Rifadin) 300 mg PO BID ##20 03/29/13 sulfamethoxazole 800 2 tab PO BID ##40 03/29/13 mg-trimethoprim 160 mg tablet doxycycline hyclate 100 mg tablet 100 mg PO BID #20 tabs 06/26/22 Allergies Allergy/AdvReac Type Severity Reaction Status Date / Time No Known Drug Allergies Allergy Verified 09/03/21 12:04 Review of Systems Review of Systems Narrative: GENERAL: Denies chills, fatigue, malaise, fever, sweats. HEENT: Denies sinus pain, ear pain, sore throat, difficulty swallowing, dizziness. RESPIRATORY: Denies dyspnea, cough, wheezing, hemoptysis, sputum. CARDIOVASCULAR: Denies chest pain, palpitations, orthopnea, edema, GASTROINTESTINAL: Denies nausea, vomiting, abdominal pain, diarrhea, constipation, melena. : Denies dysuria, frequency, incontinence, hematuria, urinary retention. MUSCULOSKELETAL: See HPI SKIN: See HPI NEUROLOGIC: Denies weakness, headache, numbness, change in speech, confusion, seizures, incoordination. PSYCHIATRIC: No concerning psychosocial issues. 12 point review of systems is negative except for those stated above Patient History Social History Smoking Status: Never smoker Smoking Status: Never smoker alcohol intake frequency: a few times a week Substance Use Type: marijuana Exam Narrative Exam Narrative: GENERAL: [61] year old patient appears stated age. Well-developed patient, in no obvious distress HEAD: Atraumatic. Normocephalic. EYES: Pupils equal round and reactive. Extraocular motions intact. No scleral icterus. No injection or drainage. ENT: Nose without bleeding, purulent drainage. Throat without erythema, tonsillar hypertrophy or exudate. Airway patent. NECK: Trachea midline. Non tender CARDIOVASCULAR: Regular rate and rhythm without murmurs, gallops, or rubs. RESPIRATORY: Clear to auscultation. Breath sounds equal bilaterally. No wheezes, rales, or rhonchi. GASTROINTESTINAL: Abdomen soft, non-tender, nondistended. EXTREMITIES: Bilateral lower extremities with moderate swelling and evidence of chronic venous stasis. His left anterior mckeon has a few ulcerated wounds that are a bit wet and appearance with minimal surrounding erythema. There is no fluctuance or induration. No lymphangitis noted BACK: Nontender without deformity or crepitance. No flank tenderness. NEURO: AOx3. SKIN: No rash or erythema of visible areas Initial Vital Signs Initial Vital Signs: Vital Signs Temperature 98.2 F 06/26/22 12:00 Pulse Rate 94 H 06/26/22 12:00 Respiratory Rate 20 06/26/22 12:00 Blood Pressure 122/63 06/26/22 12:00 Pulse Oximetry 94 06/26/22 12:00 Oxygen Delivery Method 06/26/22 12:00 Course Course Course Narrative: Cultures obtained, calling [facility] in [place] for most recent imaging Orders Ordered: ED Orders 06/26/22 12:16 Wound Culture and Gram Stain Stat 06/26/22 12:33 Complete Blood Count AUTO DIFF Stat Comprehensive Metabolic Panel Stat Lactate (Lactic Acid) Stat 06/26/22 13:53 Blood Culture Stat Vital Signs Vital signs: Vital Signs - 8 hr 06/26/22 12:00 Temperature 98.2 F Pulse Rate 94 H Respiratory Rate 20 Blood Pressure 122/63 Pulse Oximetry 94 Oxygen Delivery Method Room Air MDM - Extremity Injury (Lower) Lab Data Result diagrams: 06/26/22 12:33 06/26/22 12:33 Labs: Lab Results 06/26/22 06/26/22 06/26/22 Range/Units 12:33 12:33 12:33 WBC 6.5 (4.5-11.0) X10^3/uL RBC 3.58 L (4.5-5.9) X10^6/uL Hgb 12.0 L (13.5-17.5) g/dL Hct 34.9 L (41-53) % MCV 97.3 (80-100) fL MCH 33.6 (26-34) PG MCHC 34.5 (30-36) % RDW 13.9 (11.6-14.8) % Plt Count 70 L (150-400) X10^3/uL Neut % (Auto) 65.7 (50-75) % Lymph % (Auto) 20.0 L (25-40) % Harnett % (Auto) 13.9 (3-14) % Eos % (Auto) 0.0 L (2-4) % Baso % (Auto) 0.4 (0-2) % Neut # (Auto) 4300 (6481-4720) /uL Lymph # (Auto) 1300 (9362-6072) /uL Harnett # (Auto) 900 (0-900) /uL Eos # (Auto) 0 (0-450) /uL Baso # (Auto) 0 (0-100) /uL Sodium 139 (137-145) mmol/L Potassium 3.8 (3.4-5.1) mmol/L Chloride 99 (98-107) mmol/L Carbon Dioxide 28 (22-32) mmol/L BUN 25 H (9-20) mg/dL Creatinine 2.13 H (0.66-1.25) mg/dL Estimated GFR 35 L (>60) mL/min BUN/Creatinine Ratio 11.7 (6-22) Glucose 108 (80-110) mg/dL Lactate 1.9 (0.7-2.1) mmol/L Calcium 9.1 (8.4-10.2) mg/dL Total Bilirubin 0.7 (0.2-1.3) mg/dL AST 82 H (17-59) IU/L ALT 47 (<50) IU/L Alkaline Phosphatase 66 (38-126) U/L Total Protein 7.5 (6.3-8.2) g/dL Albumin 4.0 (3.5-5.0) g/dL Globulin 3.5 (1.7-4.1) g/dL Albumin/Globulin Ratio 1.1 (1.0-2.8) MDM Narrative Medical decision making narrative: Patient with reassuring history and physical exam, no systemic findings and minimal erythema of left lower extremity. There is no sign of sepsis, labs are reassuring as are vitals and there is no indication for admission. We were able to obtain a recently performed ADAM from an outside facility that shows relatively reassuring findings. He does have follow-up scheduled for vascular in 1 week, wound care referral sent, prescription to his pharmacy of choice and return precautions discussed. Discharge Plan Departure Patient Disposition: Home Clinical Impression: Cellulitis of lower extremity Qualifiers: Laterality: left Qualified Code(s): L03.116 - Cellulitis of left lower limb Instructions: DI for Cellulitis -- Adult Activity Restrictions/Additional Instructions: *You have been diagnosed with [left lower leg cellulitis] *What to do: *Please continue to take your regular medications as directed. [x ] New medication prescriptions sent to your pharmacy: [[facility]] [ ] New medication written as a paper prescription [ ] No new medications given *Please follow up with your primary care provider in 2-3 days, call for an appointment. Let them know you were seen in the Emergency Department and that we ask that you be seen in follow up. We will electronically transmit a record of today's note if your PCP is in our system * as we discussed we have faxed over paperwork to wound care at [facility], they are usually pretty good at reaching out to you, however I have included their contact information and if you do not hear from them in the next day or 2 please call *Return to Emergency Department if you should have any new, worsening or concerning symptoms Prescriptions: New doxycycline hyclate 100 mg tablet 100 mg PO BID Qty: 20 0RF No Action lisinopril [Zestril] 20 MG tablet 20 mg PO QDAY Qty: 0 sulfamethoxazole-trimethoprim 800 MG/160 MG tablet 2 tab PO BID Qty: 40 0RF rifampin [Rifadin] 300 MG capsule 300 mg PO BID Qty: 20 0RF Referrals: Aakash King MD [Primary Care Provider] - Massimo Waddell MD [Physician] -
[2022-06-26 12:58] LABS: Lactate (Lactic Acid) 1.9 mmol/L (0.7-2.1)
[2022-06-26 13:00] LABS: Alanine Aminotransferase 47 IU/L (<50); Albumin Globulin Ratio 1.1 (1.0-2.8); Alkaline Phosphatase 66 U/L (38-126); Aspartate Aminotransferase 82 IU/L (17-59); BUN Creatinine Ratio 11.7 (6-22); Bilirubin Total 0.7 mg/dL (0.2-1.3); Blood Urea Nitrogen 25 mg/dL (9-20); Calcium 9.1 mg/dL (8.4-10.2); Carbon Dioxide 28 mmol/L (22-32); Chloride 99 mmol/L (98-107); Estimated Glomerular Filt Rate 35 mL/min (>60); Globulin 3.5 g/dL (1.7-4.1); Glucose 108 mg/dL (80-110); HEMOLYSIS < 15 (0-50); Potassium 3.8 mmol/L (3.4-5.1); Sodium 139 mmol/L (137-145); Total Protein 7.5 g/dL (6.3-8.2)
== END 2022-06-26 15:33 | disposition home or self-care (01) ==
PROVIDERS: Emergency Provider Emergency Medicine; Family Provider Internal Medicine; PCP Internal Medicine
DX: L03.116 Cellulitis of left lower limb (principal)
CPT/HCPCS: 36415; 80053; 83605; 85025; 87040; 87070; 87077; 87147; 87186; 87205; 99283

== ENCOUNTER → 2022-07-04 13:00 | Outpatient (CLI) | payer OTHER, SELFPAY | PROVIDERS: Family Provider Internal Medicine; PCP Internal Medicine; Referring Provider Emergency Medicine; Visit Provider Family Medicine | DX: I87.2 Venous insufficiency (chronic) (peripheral) (principal); L97.821 Non-pressure chronic ulcer of other part of left lower leg limited to breakdown of skin; I73.9 Peripheral vascular disease, unspecified; D69.6 Thrombocytopenia, unspecified; B95.61 Methicillin susceptible Staphylococcus aureus infection as the cause of diseases classified elsewhere | CPT/HCPCS: 87070; 87075; 87077; 87147; 87186; 87205; 97597; 97598; 99204; 99213 ==

== ENCOUNTER → 2022-07-07 11:03 | Outpatient (CLI) | payer OTHER, SELFPAY | PROVIDERS: Family Provider Internal Medicine; PCP Internal Medicine; Referring Provider Internal Medicine; Visit Provider Family Medicine | DX: I87.2 Venous insufficiency (chronic) (peripheral) (principal); L97.822 Non-pressure chronic ulcer of other part of left lower leg with fat layer exposed; R60.0 Localized edema | CPT/HCPCS: 99213 ==

== ENCOUNTER → 2022-07-11 09:25 | Outpatient (CLI) | payer OTHER, SELFPAY | PROVIDERS: Family Provider Internal Medicine; PCP Internal Medicine; Referring Provider Internal Medicine; Visit Provider Family Medicine | DX: I87.312 Chronic venous hypertension (idiopathic) with ulcer of left lower extremity (principal); L97.822 Non-pressure chronic ulcer of other part of left lower leg with fat layer exposed; R60.0 Localized edema | CPT/HCPCS: 11042; 11045; 87070; 87075; 87077; 87147; 87186; 87205; 99213 ==

== ENCOUNTER → 2022-07-18 11:53 | Outpatient (CLI) | payer OTHER, SELFPAY | PROVIDERS: Family Provider Internal Medicine; PCP Internal Medicine; Referring Provider Internal Medicine; Visit Provider Family Medicine | DX: I87.2 Venous insufficiency (chronic) (peripheral) (principal); L97.822 Non-pressure chronic ulcer of other part of left lower leg with fat layer exposed; B95.61 Methicillin susceptible Staphylococcus aureus infection as the cause of diseases classified elsewhere; B96.29 Other Escherichia coli [E. coli] as the cause of diseases classified elsewhere; L08.9 Local infection of the skin and subcutaneous tissue, unspecified | CPT/HCPCS: 11042; 11045; 99214 ==

== ENCOUNTER → 2022-07-25 08:42 | Outpatient (CLI) | payer OTHER, SELFPAY | PROVIDERS: Family Provider Internal Medicine; PCP Internal Medicine; Referring Provider Internal Medicine; Visit Provider Surgery | DX: I87.2 Venous insufficiency (chronic) (peripheral) (principal); L97.822 Non-pressure chronic ulcer of other part of left lower leg with fat layer exposed; B95.61 Methicillin susceptible Staphylococcus aureus infection as the cause of diseases classified elsewhere; B96.29 Other Escherichia coli [E. coli] as the cause of diseases classified elsewhere; I10 Essential (primary) hypertension | CPT/HCPCS: 29580; 99213 ==

== ENCOUNTER → 2022-08-01 08:55 | Outpatient (CLI) | payer OTHER, SELFPAY | PROVIDERS: Family Provider Internal Medicine; PCP Internal Medicine; Referring Provider Internal Medicine; Visit Provider Surgery | DX: I87.2 Venous insufficiency (chronic) (peripheral) (principal); L97.822 Non-pressure chronic ulcer of other part of left lower leg with fat layer exposed; R60.0 Localized edema | CPT/HCPCS: 29580 ==

== ENCOUNTER → 2022-08-08 08:49 | Outpatient (CLI) | payer OTHER, SELFPAY | PROVIDERS: Family Provider Internal Medicine; PCP Internal Medicine; Referring Provider Internal Medicine; Visit Provider Surgery | DX: I87.2 Venous insufficiency (chronic) (peripheral) (principal); L97.822 Non-pressure chronic ulcer of other part of left lower leg with fat layer exposed; B95.61 Methicillin susceptible Staphylococcus aureus infection as the cause of diseases classified elsewhere; B96.29 Other Escherichia coli [E. coli] as the cause of diseases classified elsewhere | CPT/HCPCS: 29580; 99213; 99214 ==

== ENCOUNTER → 2022-08-16 10:47 | Outpatient (CLI) | payer OTHER, SELFPAY | PROVIDERS: Family Provider Internal Medicine; PCP Internal Medicine; Referring Provider Internal Medicine; Visit Provider Surgery | DX: I87.2 Venous insufficiency (chronic) (peripheral) (principal); L97.822 Non-pressure chronic ulcer of other part of left lower leg with fat layer exposed; B95.61 Methicillin susceptible Staphylococcus aureus infection as the cause of diseases classified elsewhere; B96.29 Other Escherichia coli [E. coli] as the cause of diseases classified elsewhere; I73.9 Peripheral vascular disease, unspecified; R60.0 Localized edema | CPT/HCPCS: 29580; 99213 ==

== ENCOUNTER → 2022-08-29 08:53 | Outpatient (CLI) | payer OTHER, SELFPAY | PROVIDERS: Family Provider Internal Medicine; PCP Internal Medicine; Referring Provider Internal Medicine; Visit Provider Surgery | DX: I87.2 Venous insufficiency (chronic) (peripheral) (principal); L97.822 Non-pressure chronic ulcer of other part of left lower leg with fat layer exposed; B95.61 Methicillin susceptible Staphylococcus aureus infection as the cause of diseases classified elsewhere; B96.29 Other Escherichia coli [E. coli] as the cause of diseases classified elsewhere; R74.8 Abnormal levels of other serum enzymes | CPT/HCPCS: 99212 ==

== ENCOUNTER → 2022-10-16 12:43 | Outpatient (CLI) | payer OTHER, SELFPAY | PROVIDERS: Family Provider Internal Medicine; PCP Internal Medicine; Referring Provider Internal Medicine; Visit Provider Surgery | DX: I87.2 Venous insufficiency (chronic) (peripheral) (principal); L97.812 Non-pressure chronic ulcer of other part of right lower leg with fat layer exposed; L97.822 Non-pressure chronic ulcer of other part of left lower leg with fat layer exposed; I89.0 Lymphedema, not elsewhere classified; I10 Essential (primary) hypertension; D69.6 Thrombocytopenia, unspecified | CPT/HCPCS: 29581; 97597; 97598; 99212; 99213 ==

== ENCOUNTER → 2022-10-23 13:38 | Outpatient (CLI) | payer OTHER, SELFPAY | PROVIDERS: Family Provider Internal Medicine; PCP Internal Medicine; Referring Provider Internal Medicine; Visit Provider Surgery | DX: I87.2 Venous insufficiency (chronic) (peripheral) (principal); L97.812 Non-pressure chronic ulcer of other part of right lower leg with fat layer exposed; L97.822 Non-pressure chronic ulcer of other part of left lower leg with fat layer exposed; I89.0 Lymphedema, not elsewhere classified; I10 Essential (primary) hypertension | CPT/HCPCS: 11042; 11045 ==

== ENCOUNTER → 2022-10-30 15:03 | Outpatient (CLI) | payer OTHER, SELFPAY | PROVIDERS: Family Provider Internal Medicine; PCP Internal Medicine; Referring Provider Internal Medicine; Visit Provider Surgery | DX: I87.2 Venous insufficiency (chronic) (peripheral) (principal); L97.812 Non-pressure chronic ulcer of other part of right lower leg with fat layer exposed; L97.822 Non-pressure chronic ulcer of other part of left lower leg with fat layer exposed; I89.0 Lymphedema, not elsewhere classified | CPT/HCPCS: 87070; 87075; 87077; 87147; 87186; 87205; 97597; 97598; 99213 ==

== ENCOUNTER → 2022-11-07 11:17 | Outpatient (CLI) | payer OTHER, SELFPAY | PROVIDERS: Family Provider Internal Medicine; PCP Family Medicine; Referring Provider Internal Medicine; Visit Provider Surgery | DX: I87.2 Venous insufficiency (chronic) (peripheral) (principal); L97.812 Non-pressure chronic ulcer of other part of right lower leg with fat layer exposed; I89.0 Lymphedema, not elsewhere classified | CPT/HCPCS: 29580; 99213 ==

== ENCOUNTER → 2022-11-16 12:04 | Outpatient (CLI) | payer OTHER, SELFPAY | PROVIDERS: Family Provider Internal Medicine; PCP Family Medicine; Referring Provider Internal Medicine; Visit Provider Surgery | DX: I87.2 Venous insufficiency (chronic) (peripheral) (principal); L97.812 Non-pressure chronic ulcer of other part of right lower leg with fat layer exposed; L97.822 Non-pressure chronic ulcer of other part of left lower leg with fat layer exposed; I89.0 Lymphedema, not elsewhere classified; I10 Essential (primary) hypertension | CPT/HCPCS: 97597; 99212; 99213 ==

== ENCOUNTER → 2022-11-23 10:41 | Outpatient (CLI) | payer OTHER, SELFPAY | PROVIDERS: Family Provider Internal Medicine; PCP Family Medicine; Referring Provider Internal Medicine; Visit Provider Surgery | DX: I87.2 Venous insufficiency (chronic) (peripheral) (principal); L97.812 Non-pressure chronic ulcer of other part of right lower leg with fat layer exposed; I89.0 Lymphedema, not elsewhere classified | CPT/HCPCS: 11042; 99213 ==

== ENCOUNTER → 2022-11-29 14:53 | Outpatient (CLI) | payer OTHER, SELFPAY | PROVIDERS: Family Provider Internal Medicine; PCP Family Medicine; Referring Provider Family Medicine; Visit Provider Nurse Practitioner Family | DX: I87.2 Venous insufficiency (chronic) (peripheral) (principal); L97.812 Non-pressure chronic ulcer of other part of right lower leg with fat layer exposed | CPT/HCPCS: 29581; 99212 ==

== ENCOUNTER → 2022-12-06 11:13 | Outpatient (CLI) | payer OTHER, SELFPAY | PROVIDERS: Family Provider Internal Medicine; PCP Family Medicine; Referring Provider Family Medicine; Visit Provider Surgery | DX: I87.2 Venous insufficiency (chronic) (peripheral) (principal); L97.812 Non-pressure chronic ulcer of other part of right lower leg with fat layer exposed; I89.0 Lymphedema, not elsewhere classified; I10 Essential (primary) hypertension | CPT/HCPCS: 29580; 99213 ==

== ENCOUNTER → 2022-12-12 09:01 | Outpatient (CLI) | payer OTHER, SELFPAY | PROVIDERS: Family Provider Internal Medicine; PCP Family Medicine; Referring Provider Internal Medicine; Visit Provider Surgery | DX: I87.2 Venous insufficiency (chronic) (peripheral) (principal); I89.0 Lymphedema, not elsewhere classified; L97.812 Non-pressure chronic ulcer of other part of right lower leg with fat layer exposed; I73.9 Peripheral vascular disease, unspecified; R60.0 Localized edema | CPT/HCPCS: 97597; 99213 ==

== ENCOUNTER → 2022-12-19 09:58 | Outpatient (CLI) | payer OTHER, SELFPAY | PROVIDERS: Family Provider Internal Medicine; PCP Family Medicine; Referring Provider Family Medicine; Visit Provider Surgery | DX: I87.2 Venous insufficiency (chronic) (peripheral) (principal); L97.812 Non-pressure chronic ulcer of other part of right lower leg with fat layer exposed; I89.0 Lymphedema, not elsewhere classified; I10 Essential (primary) hypertension | CPT/HCPCS: 29580; 99213 ==

== ENCOUNTER → 2022-12-26 09:41 | Outpatient (CLI) | payer OTHER, SELFPAY | PROVIDERS: Family Provider Internal Medicine; PCP Family Medicine; Referring Provider Internal Medicine; Visit Provider Surgery | DX: I87.2 Venous insufficiency (chronic) (peripheral) (principal); L97.822 Non-pressure chronic ulcer of other part of left lower leg with fat layer exposed; I89.0 Lymphedema, not elsewhere classified; I10 Essential (primary) hypertension; D69.6 Thrombocytopenia, unspecified; I73.9 Peripheral vascular disease, unspecified | CPT/HCPCS: 99213 ==

== ENCOUNTER → 2023-01-09 09:38 | Outpatient (CLI) | payer OTHER, SELFPAY | PROVIDERS: Family Provider Internal Medicine; PCP Family Medicine; Referring Provider Family Medicine; Visit Provider Surgery | DX: I87.2 Venous insufficiency (chronic) (peripheral) (principal); L97.812 Non-pressure chronic ulcer of other part of right lower leg with fat layer exposed; I89.0 Lymphedema, not elsewhere classified; R60.0 Localized edema | CPT/HCPCS: 11042; 99213 ==

== ENCOUNTER → 2023-01-16 09:30 | Outpatient (CLI) | payer OTHER, SELFPAY | PROVIDERS: Family Provider Internal Medicine; PCP Family Medicine; Referring Provider Internal Medicine; Visit Provider Surgery | DX: I87.2 Venous insufficiency (chronic) (peripheral) (principal); L97.812 Non-pressure chronic ulcer of other part of right lower leg with fat layer exposed; R60.0 Localized edema; I10 Essential (primary) hypertension; L08.9 Local infection of the skin and subcutaneous tissue, unspecified; Z79.2 Long term (current) use of antibiotics; D69.6 Thrombocytopenia, unspecified; E66.9 Obesity, unspecified; Z68.42 Body mass index [BMI] 45.0-49.9, adult | CPT/HCPCS: 87070; 87077; 87147; 87186; 87205; 97597; 99213 ==

== ENCOUNTER → 2023-01-23 10:36 | Outpatient (CLI) | payer OTHER, SELFPAY | PROVIDERS: Family Provider Internal Medicine; PCP Family Medicine; Referring Provider Internal Medicine; Visit Provider Surgery | DX: I87.2 Venous insufficiency (chronic) (peripheral) (principal); L97.812 Non-pressure chronic ulcer of other part of right lower leg with fat layer exposed | CPT/HCPCS: 11042; 99213 ==

== ENCOUNTER → 2023-01-30 09:55 | Outpatient (CLI) | payer OTHER, SELFPAY | PROVIDERS: Family Provider Internal Medicine; PCP Family Medicine; Referring Provider Internal Medicine; Visit Provider Surgery | DX: I87.2 Venous insufficiency (chronic) (peripheral) (principal); L97.812 Non-pressure chronic ulcer of other part of right lower leg with fat layer exposed; I89.0 Lymphedema, not elsewhere classified; R60.0 Localized edema | CPT/HCPCS: 11042 ==

== ENCOUNTER → 2023-02-06 08:34 | Outpatient (CLI) | payer OTHER, SELFPAY | PROVIDERS: Family Provider Internal Medicine; PCP Family Medicine; Referring Provider Internal Medicine; Visit Provider Surgery | DX: I87.2 Venous insufficiency (chronic) (peripheral) (principal); L97.812 Non-pressure chronic ulcer of other part of right lower leg with fat layer exposed; I89.0 Lymphedema, not elsewhere classified | CPT/HCPCS: 11042; 99213 ==

== ENCOUNTER → 2023-02-13 08:46 | Outpatient (CLI) | payer OTHER, SELFPAY | PROVIDERS: Family Provider Internal Medicine; PCP Family Medicine; Referring Provider Family Medicine; Visit Provider Surgery | DX: I87.2 Venous insufficiency (chronic) (peripheral) (principal); L97.812 Non-pressure chronic ulcer of other part of right lower leg with fat layer exposed; L97.822 Non-pressure chronic ulcer of other part of left lower leg with fat layer exposed; I89.0 Lymphedema, not elsewhere classified | CPT/HCPCS: 11042; 99213 ==

== ENCOUNTER → 2023-02-20 09:01 | Outpatient (CLI) | payer OTHER, SELFPAY | PROVIDERS: Family Provider Internal Medicine; PCP Family Medicine; Referring Provider Family Medicine; Visit Provider Surgery | DX: I87.2 Venous insufficiency (chronic) (peripheral) (principal); L97.812 Non-pressure chronic ulcer of other part of right lower leg with fat layer exposed; I89.0 Lymphedema, not elsewhere classified | CPT/HCPCS: 29581; 99213 ==

== ENCOUNTER → 2023-03-06 11:04 | Outpatient (CLI) | payer OTHER, SELFPAY | PROVIDERS: Family Provider Internal Medicine; PCP Family Medicine; Referring Provider Family Medicine; Visit Provider Surgery | DX: I87.2 Venous insufficiency (chronic) (peripheral) (principal); L97.812 Non-pressure chronic ulcer of other part of right lower leg with fat layer exposed; I89.0 Lymphedema, not elsewhere classified | CPT/HCPCS: 11042; 87070; 87077; 87147; 87186; 87205; 99213 ==

== ENCOUNTER → 2023-03-13 10:25 | Outpatient (CLI) | payer OTHER, SELFPAY | PROVIDERS: Family Provider Internal Medicine; PCP Family Medicine; Referring Provider Internal Medicine; Visit Provider Surgery | DX: I87.2 Venous insufficiency (chronic) (peripheral) (principal); L97.812 Non-pressure chronic ulcer of other part of right lower leg with fat layer exposed; L97.821 Non-pressure chronic ulcer of other part of left lower leg limited to breakdown of skin; I89.0 Lymphedema, not elsewhere classified; I73.9 Peripheral vascular disease, unspecified | CPT/HCPCS: 11042; 29581; 99213 ==

== ENCOUNTER → 2023-03-20 07:58 | Outpatient (CLI) | payer OTHER, SELFPAY ==
[2023-03-20 08:35] LABS: Add Manual Diff / Slide Review NO; Basophils Absolute Auto 100 /uL (0-100); Basophils Percent Auto 1.3 % (0-2); Eosinophils Absolute Auto 0 /uL (0-450); Hematocrit 38.9 % (41-53); Hemoglobin 13.2 g/dL (13.5-17.5); Lymphocytes Absolute Auto 1200 /uL (1100-4500); Lymphocytes Percent Auto 27.3 % (25-40); Mean Corpuscular HGB Conc 33.9 % (30-36); Mean Corpuscular Hemoglobin 32.5 PG (26-34); Mean Corpuscular Volume 95.9 fL (80-100); Monocytes Absolute Auto 500 /uL (0-900); Monocytes Percent Auto 10.6 % (3-14); Neutrophils Absolute Auto 2600 /uL (1500-7000); Neutrophils Percent Auto 60.8 % (50-75); Platelet Count 50 X10^3/uL (150-400); Red Blood Cell Count 4.06 X10^6/uL (4.5-5.9); Red Cell Distribution Width 15.4 % (11.6-14.8); White Blood Cell Count 4.3 X10^3/uL (4.5-11.0)
[2023-03-20 08:52] LABS: Alanine Aminotransferase 46 IU/L (<50); Albumin Globulin Ratio 1.3 (1.0-2.8); Alkaline Phosphatase 70 U/L (38-126); Aspartate Aminotransferase 106 IU/L (17-59); BUN Creatinine Ratio 11.3 (6-22); Bilirubin Total 1.2 mg/dL (0.2-1.3); Blood Urea Nitrogen 14 mg/dL (9-20); Calcium 8.8 mg/dL (8.4-10.2); Carbon Dioxide 28 mmol/L (22-32); Chloride 104 mmol/L (98-107); Cholesterol 141 mg/dL (140-199); Estimated Glomerular Filt Rate > 60 mL/min (>60); Glucose 116 mg/dL (80-110); HDL Cholesterol 108 mg/dL (40-60); HEMOLYSIS < 15 (0-50); LDL Cholesterol Calculated 22 mg/dL (<100); Potassium 4.6 mmol/L (3.4-5.1); Sodium 139 mmol/L (137-145); Triglycerides 57 mg/dL (35-150)
[2023-03-20 10:48] LABS: Creatinine Urine Random 104.4 mg/dL
[2023-03-20 10:52] LABS: Microalbumi Creatinin Ratio Ur 22.9 ug/mg CR (<30); Microalbumin Urine Random 2.4 mg/dL (0-1.6)
[2023-03-22 07:43] LABS: x Labcorp Estim. Avg Glu (eAG) 117 mg/dL (.); x Labcorp Hemoglobin A1c 5.7 % (4.8-5.6)
== END ==
PROVIDERS: Family Provider Internal Medicine; PCP Family Medicine; Referring Provider Family Medicine; Visit Provider Family Medicine
DX: I10 Essential (primary) hypertension (principal); D69.6 Thrombocytopenia, unspecified; I73.9 Peripheral vascular disease, unspecified
CPT/HCPCS: 36415; 80053; 80061; 82043; 82570; 83036; 85025

== ENCOUNTER → 2023-03-20 08:23 | Outpatient (CLI) | payer OTHER, SELFPAY | PROVIDERS: Family Provider Internal Medicine; PCP Family Medicine; Referring Provider Internal Medicine; Visit Provider Surgery | DX: D69.6 Thrombocytopenia, unspecified (principal); I73.9 Peripheral vascular disease, unspecified; I87.2 Venous insufficiency (chronic) (peripheral); L97.821 Non-pressure chronic ulcer of other part of left lower leg limited to breakdown of skin; L97.812 Non-pressure chronic ulcer of other part of right lower leg with fat layer exposed; R60.0 Localized edema | CPT/HCPCS: 29581; 36415; 80053; 80061; 82043; 82570; 83036; 85025 ==

== ENCOUNTER → 2023-03-27 11:02 | Outpatient (CLI) | payer OTHER, SELFPAY | PROVIDERS: Family Provider Internal Medicine; PCP Family Medicine; Referring Provider Internal Medicine; Visit Provider Surgery | DX: I87.2 Venous insufficiency (chronic) (peripheral) (principal); L97.812 Non-pressure chronic ulcer of other part of right lower leg with fat layer exposed; I89.0 Lymphedema, not elsewhere classified | CPT/HCPCS: 11042; 99213; 99214 ==

== ENCOUNTER → 2023-04-03 08:32 | Outpatient (CLI) | payer OTHER, SELFPAY | PROVIDERS: Family Provider Internal Medicine; PCP Family Medicine; Referring Provider Internal Medicine; Visit Provider Surgery | DX: I87.2 Venous insufficiency (chronic) (peripheral) (principal); L97.812 Non-pressure chronic ulcer of other part of right lower leg with fat layer exposed; I89.0 Lymphedema, not elsewhere classified; I73.9 Peripheral vascular disease, unspecified; R60.0 Localized edema | CPT/HCPCS: 11042 ==

== ENCOUNTER → 2023-04-10 08:50 | Outpatient (CLI) | payer OTHER, SELFPAY | PROVIDERS: Family Provider Internal Medicine; PCP Family Medicine; Referring Provider Internal Medicine; Visit Provider Surgery | DX: I87.2 Venous insufficiency (chronic) (peripheral) (principal); L97.812 Non-pressure chronic ulcer of other part of right lower leg with fat layer exposed; L97.822 Non-pressure chronic ulcer of other part of left lower leg with fat layer exposed; I89.0 Lymphedema, not elsewhere classified | CPT/HCPCS: 29581; 99213 ==

== ENCOUNTER → 2023-04-17 09:06 | Outpatient (CLI) | payer OTHER, SELFPAY | PROVIDERS: Family Provider Internal Medicine; PCP Family Medicine; Referring Provider Internal Medicine; Visit Provider Surgery | DX: I87.2 Venous insufficiency (chronic) (peripheral) (principal) | CPT/HCPCS: 99213 ==

== ENCOUNTER → 2023-05-03 14:56 | Outpatient (CLI) | payer OTHER, SELFPAY | PROVIDERS: Family Provider Internal Medicine; PCP Family Medicine; Referring Provider Internal Medicine; Visit Provider Surgery | DX: I87.2 Venous insufficiency (chronic) (peripheral) (principal); L97.812 Non-pressure chronic ulcer of other part of right lower leg with fat layer exposed; R60.0 Localized edema; L53.9 Erythematous condition, unspecified | CPT/HCPCS: 11042; 11045; 97597; 99213; 99214 ==

== ENCOUNTER → 2023-05-10 11:01 | Outpatient (CLI) | payer OTHER, SELFPAY | PROVIDERS: Family Provider Internal Medicine; PCP Family Medicine; Referring Provider Internal Medicine; Visit Provider Surgery | DX: L97.812 Non-pressure chronic ulcer of other part of right lower leg with fat layer exposed (principal); I87.2 Venous insufficiency (chronic) (peripheral); R60.0 Localized edema; L53.9 Erythematous condition, unspecified; D69.6 Thrombocytopenia, unspecified; I10 Essential (primary) hypertension; G40.89 Other seizures | CPT/HCPCS: 29581; 99213 ==

== ENCOUNTER → 2023-05-17 09:57 | Outpatient (CLI) | payer OTHER, SELFPAY | PROVIDERS: Family Provider Internal Medicine; PCP Family Medicine; Referring Provider Internal Medicine; Visit Provider Surgery | DX: I87.2 Venous insufficiency (chronic) (peripheral) (principal); I73.9 Peripheral vascular disease, unspecified; R60.0 Localized edema | CPT/HCPCS: 29581; 99213 ==

== ENCOUNTER → 2023-06-07 09:12 | Outpatient (CLI) | payer OTHER, SELFPAY | PROVIDERS: Family Provider Internal Medicine; PCP Family Medicine; Referring Provider Internal Medicine; Visit Provider Surgery | DX: I89.0 Lymphedema, not elsewhere classified; L97.812 Non-pressure chronic ulcer of other part of right lower leg with fat layer exposed; L89.891 Pressure ulcer of other site, stage 1; R60.0 Localized edema; M79.604 Pain in right leg | CPT/HCPCS: 29581; 87070; 87075; 87077; 87147; 87186; 87205; 99213; 99214 ==

== ENCOUNTER → 2023-06-13 09:33 | Outpatient (CLI) | payer OTHER, SELFPAY | PROVIDERS: Family Provider Internal Medicine; PCP Family Medicine; Referring Provider Orthopaedic Surgery Foot and Ankle Surgery; Visit Provider Surgery | DX: I87.2 Venous insufficiency (chronic) (peripheral) (principal); I89.0 Lymphedema, not elsewhere classified; L97.812 Non-pressure chronic ulcer of other part of right lower leg with fat layer exposed; L89.311 Pressure ulcer of right buttock, stage 1 | CPT/HCPCS: 29581; 99214 ==

== ENCOUNTER → 2023-06-21 08:58 | Outpatient (CLI) | payer OTHER, SELFPAY | PROVIDERS: Family Provider Internal Medicine; PCP Family Medicine; Referring Provider Family Medicine; Visit Provider Surgery | DX: I87.2 Venous insufficiency (chronic) (peripheral) (principal); I89.0 Lymphedema, not elsewhere classified; L03.115 Cellulitis of right lower limb; L97.812 Non-pressure chronic ulcer of other part of right lower leg with fat layer exposed; L89.511 Pressure ulcer of right ankle, stage 1; R60.0 Localized edema; L53.9 Erythematous condition, unspecified; L98.8 Other specified disorders of the skin and subcutaneous tissue | CPT/HCPCS: 11042 ==

== ENCOUNTER → 2023-06-28 08:35 | Outpatient (CLI) | payer OTHER, SELFPAY | PROVIDERS: Family Provider Internal Medicine; PCP Family Medicine; Referring Provider Internal Medicine; Visit Provider Surgery | DX: I87.2 Venous insufficiency (chronic) (peripheral) (principal); L97.812 Non-pressure chronic ulcer of other part of right lower leg with fat layer exposed; R60.0 Localized edema | CPT/HCPCS: 97602; 99213 ==

== ENCOUNTER → 2023-07-04 15:17 | Outpatient (CLI) | payer OTHER, SELFPAY | PROVIDERS: Family Provider Internal Medicine; PCP Family Medicine; Referring Provider Internal Medicine; Visit Provider Surgery | DX: I87.2 Venous insufficiency (chronic) (peripheral) (principal); L97.812 Non-pressure chronic ulcer of other part of right lower leg with fat layer exposed; I10 Essential (primary) hypertension; R21 Rash and other nonspecific skin eruption; L53.9 Erythematous condition, unspecified | CPT/HCPCS: 29581; 99213 ==

== ENCOUNTER → 2023-07-12 09:52 | Outpatient (CLI) | payer OTHER, SELFPAY | PROVIDERS: Family Provider Internal Medicine; PCP Family Medicine; Referring Provider Internal Medicine; Visit Provider Surgery | DX: I87.2 Venous insufficiency (chronic) (peripheral) (principal); L97.812 Non-pressure chronic ulcer of other part of right lower leg with fat layer exposed; I89.0 Lymphedema, not elsewhere classified; I10 Essential (primary) hypertension; R21 Rash and other nonspecific skin eruption; R60.0 Localized edema; L53.9 Erythematous condition, unspecified | CPT/HCPCS: 97602; 99214 ==

== ENCOUNTER → 2023-07-18 14:53 | Outpatient (CLI) | payer OTHER, SELFPAY | PROVIDERS: Family Provider Internal Medicine; PCP Family Medicine; Referring Provider Internal Medicine; Visit Provider Surgery | DX: I87.2 Venous insufficiency (chronic) (peripheral) (principal); L97.812 Non-pressure chronic ulcer of other part of right lower leg with fat layer exposed; I10 Essential (primary) hypertension; R60.0 Localized edema; L53.9 Erythematous condition, unspecified | CPT/HCPCS: 99214 ==

== ENCOUNTER → 2023-07-25 14:55 | Outpatient (CLI) | payer OTHER, SELFPAY | PROVIDERS: Family Provider Internal Medicine; PCP Family Medicine; Referring Provider Internal Medicine; Visit Provider Surgery | DX: I87.2 Venous insufficiency (chronic) (peripheral) (principal); L97.812 Non-pressure chronic ulcer of other part of right lower leg with fat layer exposed; I89.0 Lymphedema, not elsewhere classified; I10 Essential (primary) hypertension; R60.0 Localized edema; R21 Rash and other nonspecific skin eruption; L53.9 Erythematous condition, unspecified | CPT/HCPCS: 99213 ==

== ENCOUNTER → 2023-08-02 08:47 | Outpatient (CLI) | payer OTHER, SELFPAY | PROVIDERS: Family Provider Internal Medicine; PCP Family Medicine; Referring Provider Internal Medicine; Visit Provider Surgery | DX: I87.2 Venous insufficiency (chronic) (peripheral) (principal); R21 Rash and other nonspecific skin eruption; R60.0 Localized edema; L53.9 Erythematous condition, unspecified; L97.812 Non-pressure chronic ulcer of other part of right lower leg with fat layer exposed | CPT/HCPCS: 11042; 11045 ==

== ENCOUNTER → 2023-08-16 10:10 | Outpatient (CLI) | payer OTHER, SELFPAY | PROVIDERS: Family Provider Internal Medicine; PCP Family Medicine; Referring Provider Internal Medicine; Visit Provider Physician Assistant | DX: I87.2 Venous insufficiency (chronic) (peripheral) (principal); L97.812 Non-pressure chronic ulcer of other part of right lower leg with fat layer exposed; R60.0 Localized edema; R21 Rash and other nonspecific skin eruption; L53.9 Erythematous condition, unspecified | CPT/HCPCS: 11042; 11045; 99214 ==

== ENCOUNTER → 2023-08-30 09:56 | Outpatient (CLI) | payer OTHER, SELFPAY | LOC: WC 09:56 | PROVIDERS: Family Provider Internal Medicine; PCP Family Medicine; Referring Provider Internal Medicine; Visit Provider Surgery | DX: L97.812 Non-pressure chronic ulcer of other part of right lower leg with fat layer exposed (principal); I87.2 Venous insufficiency (chronic) (peripheral); I89.0 Lymphedema, not elsewhere classified; L53.9 Erythematous condition, unspecified; B35.9 Dermatophytosis, unspecified; D69.6 Thrombocytopenia, unspecified; Z79.2 Long term (current) use of antibiotics | CPT/HCPCS: 99213 ==

== ENCOUNTER → 2023-09-04 14:30 | Outpatient (CLI) | payer OTHER, SELFPAY | LOC: WC 14:30 | PROVIDERS: Family Provider Internal Medicine; PCP Family Medicine; Referring Provider Internal Medicine; Visit Provider Surgery | DX: L97.812 Non-pressure chronic ulcer of other part of right lower leg with fat layer exposed (principal); I87.2 Venous insufficiency (chronic) (peripheral); R60.0 Localized edema; I10 Essential (primary) hypertension; D69.6 Thrombocytopenia, unspecified; I89.0 Lymphedema, not elsewhere classified | CPT/HCPCS: 97602; 99213 ==

== ENCOUNTER → 2023-09-20 10:14 | Outpatient (CLI) | payer OTHER, SELFPAY | LOC: WC 10:15 | PROVIDERS: Family Provider Internal Medicine; PCP Family Medicine; Referring Provider Internal Medicine; Visit Provider Surgery | DX: I89.0 Lymphedema, not elsewhere classified (principal); R60.0 Localized edema; I87.2 Venous insufficiency (chronic) (peripheral); I10 Essential (primary) hypertension; D69.6 Thrombocytopenia, unspecified | CPT/HCPCS: 99213 ==

== ENCOUNTER → 2023-10-04 11:23 | Outpatient (CLI) | payer OTHER, SELFPAY ==
--- NOTE | 2023-10-04 | OV.WND_ITS ---
Progress Note Details Patient Name: Rupesh Olmedo Patient Number: [id number] Clinician: Daphnie Reis Patient Date of : 1960 Physician / Psychiatric Secretary: Anatoliy Girard Patient SUBJECTIVE Chief Complaint This information was obtained from the Chart, Patient. weeping from left ankle Allergies No Known Allergies HPI This information was obtained from the Patient. The following HPI elements were documented for the patient's wound: Location: RLE Duration: 04/25/23, 10/02/23 Context: venous The patient is a 61-year-old male with seizure disorder and hypertension who returns today for surveillance of recurrent venous ulcers of right lower extremity that were noted to be healed at his last visit on September 20, 2023. Patient had been receiving dressing changes with Iodoflex with Lotrisone and skin moisturizer to the periwound skin with Velcro wrap for compression. Since the ulcer healed he has been applying Lotrisone and skin moisturizer daily. He has not noted any signs of recurrence however he did develop a new ulcer on the posterior left lower leg that has slight green drainage. the ulcer is painful and was caused by his shoe rubbing against the back of his leg. It occurred despite using a Velcro wraps. The patient reports that there has been no drainage from the right side. He denies having any fever or chills or other recent changes in his overall health. The patient had a follow up appointment with hematology and his plate light count was noted to be down to 27,000. Patient did receive insurance approval for vein ablation however it has been postponed because of his thrombocytopenia. Previous ADAM and arterial duplex showed no evidence for arterial insufficiency in either lower extremity. PCR testing in February showed MRSA resistant to doxycycline. Most 06/07/23 PCR testing showed heavy growth of Pseudomonas sensitive to Cipro. The patient was started on Cipro and showed much improvement. On exam today the ulcer on the right remains healed however there is a new ulcer posterior left lower leg. LABS: 06/07/23: Cultures grew Pseudomonas aeruginosa and Staphylococcus aureus 03/20/23: WBC 4.3, hemoglobin 13.2, HCT 38.9, platelet count 50,000, electrolytes normal, GFR greater than 60, hemoglobin A1c 5.7, LFTs normal except for AST 106 03/06/23: Culture right leg grew Staphylococcus aureus and Streptococcus group B Family History This information was obtained from the Patient. Unknown History- Father Cancer- Mother Social History Rupesh Olmedo [id number] 1960 This information was obtained from the Patient. 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 Patient has a medical history of: Peripheral Vascular Disease Hypertension Sepsis Seizures Additional Information Does patient have a history of Cancer? Yes? Complete all questions.: No Surgical History This information was obtained from the Patient. Patient has a surgical history of: Right TKA- Hernia Repair- Colonoscopy- 09/06/2023 Review of Systems (ROS) This information was obtained from the Patient. Complaints and Symptoms Patient com plains of: Co-Morbid Conditions: Hypertension, Obesity, Seizure Disorder, Venous Insuffiency Hematologic/Lymphatic: Swelling Prior Wound History: Drainage, Erythema Patient denies com plaints or sy m ptom s related to: Cardiovascular (Central): Chest Pain, Dyspnea on Exertion Cardiovascular (Peripheral) Constitutional Symptoms (General Health): Chills, Fever, Loss of Appetite, Marked Weight Change Gastrointestinal (GI): Loss of Appetite Neurological: Weakness Prior Wound History: Bleeding, Malodor, Pain Respiratory: Cough, Shortness of Breath OBJECTIVE Vitals Height/Length: 74 in (187.96 cm), Weight: 357.5 lbs (162.5 kgs), BMI: 45.9, Temperature: 97.6 ?F (36.44 ?C), Pulse: 91 bpm, Respiratory Rate: 18 breaths/min, Blood Pressure: 134/77 mmHg, Pulse Rupesh Olmedo [id number] 1960 Oximetry: 97 %. Physical Exam Constitutional: Vital signs reviewed and noted. Well developed, well nourished, and in no acute distress. Alert and oriented x3. Respiratory: Even respirations without use of accessory muscles. No intercoastal retractions noted. Even and non labored respiration. Integumentary (Hair, Skin): See wound assessment. Neurological: Sensation: Symmetric function by informal observation. Psychiatric: Orientation to time, place and person: Normal affect with normal thought pattern. Additional Information The patient's potential to heal is: fair. Lower Extremity Assessment Edema Assessment: Left Extremity: Edema is present Compression Device In Use: Yes Device Used Correctly: Yes Device in Use: Farrow Wrap Calf Measurement 34 cm from Heel with left measurement of 52 cm Ankle Measurement 11 cm from Heel with left measurement of 33 cm Foot Measurement 11 cm from toe with left measurement of 30 cm Right Extremity: Edema is present Compression Device In Use: Yes Device Used Correctly: Yes Device in Use: Farrow Wrap Calf Measurement 34 cm from Heel with right measurement of 50.5 cm Ankle Measurement 11 cm from Heel with right measurement of 31 cm Foot Measurement 11 cm from toe with right measurement of 27 cm Vascular Assessment Left Extremity Colors, hair growth, and conditions: Extremity Color: Pigmented Hair Growth on Extremity: Yes Temperature of Extremity: Warm Capilary Refill: < 3 seconds Erythema: No Dependent Rubor: No Hyperpigmentation: Yes Lipodermatosclerosis: No Right Extremity Colors, hair growth, and conditions: Extremity Color: Pigmented Hair Growth on Extremity: Yes Temperature of Extremity: Warm Capilary Refill: < 3 seconds Erythema: Yes Dependent Rubor: No Hyperpigmentation: Yes Lipodermatosclerosis: No Wound Assessment(s) Wound #8 Left Ankle is an acute Full Thickness Venous Ulcer and has received a status of Not Healed. Initial wound encounter measurements are 8cm length x 9cm width x 0.1 cm depth, with an area of 72 sq cm and a volume of 7.2 cubic cm. Adipose is exposed. No tunneling has been noted. No sinus tract Rupesh Olmedo [id number] has been noted. No undermining has been noted. There is a Moderate amount of serosanguineous drainage noted. The patient reports a wound pain of level 2/10. The wound margin is attached Wound bed has No, granulation, Yes slough, No eschar, No epithelialization. The periwound skin exhibited edema and hemosiderosis. The temperature of the periwound skin is WNL. Additional Information Other devitalized tissue present: biofilm Limited to breakdown of skin: No ASSESSMENT Active Problems ICD-10 (Encounter Diagnosis) I87.2 - Venous insufficiency (chronic) (peripheral) (Encounter Diagnosis) I89.0 - Lymphedema, not elsewhere classified L97.312 - Non-pressure chronic ulcer of right ankle with fat layer exposed (Encounter Diagnosis) L97.212 - Non-pressure chronic ulcer of right calf with fat layer exposed (Encounter Diagnosis) L03.115 - Cellulitis of right lower limb (Encounter Diagnosis) L89.512 - Pressure ulcer of right ankle, stage 2 (Encounter Diagnosis) B35.9 - Dermatophytosis, unspecified (Encounter Diagnosis) L97.222 - Non-pressure chronic ulcer of left calf with fat layer exposed General Notes Recurrent venous ulcers right lower extremity remain healed new venous ulcer posterior left lower extremity The following factors have been identified that may affect wound healing: Devitalized tissue Bioburden Venous insufficiency Lymphedema Thrombocytopenia Infection Goals: Prevent recurrence of wounds Reduce edema Treat infection Improve skin barrier Plan: Continue Lotrisone and skin moisturizer daily as needed with Velcro wraps to control swelling. Culture obtained from new ulcer on the left. Start dressing changes with Iodoflex and Lotrisone cream with skin moisturizer to the periwound skin. Follow up in 1 week for a recheck. PROCEDURES Wound #8 Wound #8 (Venous Ulcer) is located on the left ankle. A non-selective mechanical debridement with a total area debrided of 72 sq cm. was performed by Anatoliy Girard MD. Non-viable tissue was removed. The procedure was tolerated well with a pain level of 0 throughout and a pain level of 0 following the procedure. Post Debridement Measurements: 8cm length x 9cm width x 0.1cm depth; Rupesh Olmedo [id number] 1960 with an area of 72 sq cm and a volume of 7.2 cubic cm. Additional Information Method Used: Abrasion Devitalized Tissue Removed: Biofilm, Exudate PLAN Wound Orders: Wound #8 Left Ankle Anesthetic Topical Xylocaine to wound bed Hygiene May shower with wound protected, using a cast protector or plastic bag and tape Cleanser Cleanse Wound with normal saline Dressings Primary dressing - Iodoflex or Iodosorb Cover and secure with - Mextra and roll gauze Change Dressing - Every other day Additional Orders: Topical Treatments Other order - Lotrisone and moisturizer to periwound Compression/Edema Control Compression Type: - Wear your farrow wraps to bilateral legs Follow-Up Appointments Return Appointment - One week Other information: If you develop fever, chills, increased pain, drainage, redness or swelling please call our office. If after hours, respond to the ER. Should you experience any significant changes in your wound(s) or have any questions regarding your home care instructions please contact the wound center @ [phone]. If after hours, contact your primary care physician or go to the hospital emergency room. Physician Review: Reviewed and evaluated labs. Discussed the Plan of Care @ bedside with - patient Reviewed hospital records. I, as the physician, have reviewed the orders scribed by the center RN's and agree. Scribing Attestation I attest, as the nurse, that I scribed these orders for the physician. Ancillary Services: Laboratory: Culture Wound Plan of Care: 01. ENSURE/ESTABLISH OPTIMAL BLOOD FLOW : - Complete lower extremity assessment 02. ASSESS FOR/TREAT INFECTION : - Evaluate for signs and symptoms of infection and document findings. - Obtain culture and sensitivity (CandS) or tissue culture when infection is suspected. (NOTE:) Consider repeating when wound healing <40% after 30 days of wound care. - Order appropriate antibiotics based on patient presentation and culture and sensitivity results. Instruct patient on the importance of taking medication as prescribed. 03. DEBRIDE WEEKLY OR MORE OFTEN PRN : Rupesh Olmedo [id number] 1960 - Reviewed, not applicable 04. OPTIMIZE GLUCOSE CONTROL and NUTRITION : - Order/review pertinent labs to evaluate renal function, glucose control, and nutritional status. - Complete a nutrition risk assessment. 05. OFFLOADING PLAN : - Reviewed, not applicable 06. OPTIMIZE HOST FACTORS: - Assess and review patient history for wound etiology, co-morbid conditions, medication regime, and smoking history. - Assess lifestyle factors such as smoking, alcohol/drug abuse, eating habits/malnutrition and activity level. 07. DRESSING SELECTION : - Evaluate for dressing-related factors, such as availability, wear time, adaptability and use to better optimize wound healing and patient compliance. - Choose topical treatments and/or dressing based on wound type and appearance, periwound skin condition, wound size and depth, anatomic location, volume of exudate, edema in the lower extremities, and risk or presence of infection. 08. ADVANCED MODALITIES : - Evaluate for appropriateness of Cellular Tissue Product therapy. 09. FALL PREVENTION : - Reviewed, not applicable 10. PAIN MANAGEMENT : - Complete pain assessment - Instruct the patient to call ???time-out??? if pain is too intense during procedure. 11. MEASURABLE GOALS for Wound Healing and/or Hyperbaric Oxygen Therapy : - Wound Closure 12. DURATION/FREQUENCY of Wound Care Visits : - Reviewed, not applicable Electronic Signature(s) Signed By: Date: Anatoliy Girard MD 10/04/2023 15:40:26 (PT) Entered By: Anatoliy Girard MD on 10/04/2023 11:48:37 (PT) Rupesh Olmedo [id number] 1960
== END ==
PROVIDERS: Family Provider Internal Medicine; PCP Family Medicine; Referring Provider Internal Medicine; Visit Provider Surgery
DX: L97.322 Non-pressure chronic ulcer of left ankle with fat layer exposed (principal); I87.2 Venous insufficiency (chronic) (peripheral); R60.0 Localized edema; I89.0 Lymphedema, not elsewhere classified; D69.6 Thrombocytopenia, unspecified; I10 Essential (primary) hypertension
CPT/HCPCS: 87070; 87075; 87077; 87147; 87186; 87205; 97602; 99213

== ENCOUNTER → 2023-10-11 09:20 | Outpatient (CLI) | payer OTHER, SELFPAY | LOC: WC 09:20 | PROVIDERS: Family Provider Internal Medicine; PCP Family Medicine; Referring Provider Internal Medicine; Visit Provider Surgery | DX: L97.811 Non-pressure chronic ulcer of other part of right lower leg limited to breakdown of skin (principal); I87.2 Venous insufficiency (chronic) (peripheral); I89.0 Lymphedema, not elsewhere classified; L08.89 Other specified local infections of the skin and subcutaneous tissue; I10 Essential (primary) hypertension; R60.0 Localized edema; L53.9 Erythematous condition, unspecified; D69.6 Thrombocytopenia, unspecified; Z79.2 Long term (current) use of antibiotics | CPT/HCPCS: 97602; 99213 ==

== ENCOUNTER → 2023-10-18 09:56 | Outpatient (CLI) | payer OTHER, SELFPAY | LOC: WC 10:02 | PROVIDERS: Family Provider Internal Medicine; PCP Family Medicine; Referring Provider Internal Medicine; Visit Provider Surgery | DX: I87.2 Venous insufficiency (chronic) (peripheral) (principal); I89.0 Lymphedema, not elsewhere classified; D69.6 Thrombocytopenia, unspecified; I10 Essential (primary) hypertension | CPT/HCPCS: 99212; 99213 ==

== ENCOUNTER → 2023-11-01 10:06 | Outpatient (CLI) | payer OTHER, SELFPAY | LOC: WC 10:07 | PROVIDERS: Family Provider Internal Medicine; PCP Family Medicine; Referring Provider Internal Medicine; Visit Provider Nurse Practitioner Family | DX: I87.2 Venous insufficiency (chronic) (peripheral) (principal); I89.0 Lymphedema, not elsewhere classified; D69.6 Thrombocytopenia, unspecified | CPT/HCPCS: 99211; 99213 ==

== ENCOUNTER 2023-12-13 07:44 | Day surgery (SDC) | payer OTHER, SELFPAY ==
--- NOTE | 2023-12-13 | PATH_ITS ---
[facility] Accession Number: [id number] No. of containers..03 Tissue . 01 Material submitted: . PART A: colon - ASCENDING POLYPS PART B: colon - TRANSVERSE POLYP PART C: rectum - RECTAL POLYP . 01 Diagnosis: A. ASCENDING COLON, POLYPS: Tubular adenoma in five of six fragments. . B. TRANSVERSE CDLON, POLYP: Scant fragment of colonic mucosa with no significant diagnostic abnormality, consistent with polypoid redundancy in a background of mostly fecal debris. Negative for dysplasia and malignancy. . C. RECTUM, POLYP: Tubular adenoma. FRR 12/21/2023 1553 Local . 01 Electronically signed: . Sharlene Garcia MD, Pathologist NPI- [id number] . 01 Gross description: . A. Received in formalin labeled with two patient identifiers and ascending polyps. There are six torres polypoid tissue fragments ranging from 0.2 up to 0.6 cm in greatest dimension. The largest of this is inked and bisected. The specimen is entirely submitted in cassettes A1-A3. B. Received in formalin labeled with two patient identifiers and transverse polyp, is a 2.0 x 1.0 x 0.3 cm aggregate of membranous and mucoid tissue. No distinct polypoid tissue is appreciated. The specimen is filtered and entirely submitted in cassette B1. C. Received in formalin labeled with two patient identifiers and rectal polyp, is a 1.1 x 0.7 x 0.7 cm torres-brown polypoid tissue which is inked, bisected, and entirely submitted in cassette C1. ([id number]) /JULIUS 12/19/2023 0744 Local . 01 Pathologist provided ICD-10: D12.2, D12.8 . 01 CPT . 808443, 956879, 514635 Specimen Comment: A courtesy copy of this report has been sent to [phone] Performed at: 01 [facility] [address] [place] [address], [place], [place] [id number] MD Claudio Hall MD Phone: [phone]
[2023-12-13 07:55] VITALS: BP 166/83; PULSE 86; RESP 16; TEMP 36.5; O2SAT 98
[2023-12-13] MEDS: LACTATED RINGERS 1,000 ML 42 ML IV (08:16)
--- NOTE | 2023-12-13 08:30 | P.HP_ITS ---
History of Present Illness History of Present Illness Date Patient Seen: 12/13/23 Time Patient Seen: 08:30 Chief complaint: SDC Narrative: Rupesh is a 63-year-old man who presents for colonoscopy. He states that he had 1 about 13 years ago and [place] and a polyp was removed that had cancer within it. He has no family history colon cancer. [facility] Medical History (Updated 12/13/23 @ 08:30 by Cl Liu MD) Hypertension Seizure Surgical History (Updated 03/12/23 @ 10:31 by Thuy Evans MD) S/P hernia repair Status post right knee replacement Family History (Updated 03/12/23 @ 10:33 by Thuy Evans MD) Mother Cancer Brother Myocardial infarct Social History Smoking Status: Never smoker Meds Home Medications and Allergies Home Medications Medication Instructions Recorded Confirmed Type furosemide 20 mg tablet 20 mg PO DAILY 03/06/23 12/13/23 History losartan 100 mg tablet 100 mg PO DAILY 03/06/23 12/13/23 History metoprolol succinate 50 mg capsule 50 mg PO DAILY #90 ea 03/06/23 12/13/23 Rx sprinkle, ext. release 24 hr multivitamin (Daily Multi-Vitamin 1 tab PO DAILY 03/06/23 12/13/23 History tablet) zonisamide 100 mg capsule 100 mg PO DAILY 03/06/23 12/13/23 History peg 3350-sod sulf,jyfyl-stc-mwh 1,000 ml PO DIRECTED #2,000 mL 10/22/23 12/13/23 Rx 178.7-7.3-0.5-1.12-0.9 gram oral soln (Suflave) Allergies Allergy/AdvReac Type Severity Reaction Status Date / Time No Known Drug Allergies Allergy Verified 03/06/23 13:54 Exam Vital Signs (past 8 hours): - 12/13/23 07:55 Temperature 97.7 F Pulse Rate 86 Respiratory Rate 16 Blood Pressure 166/83 H Pulse Oximetry 98 Oxygen Delivery Method Room Air Oxygen Delivery Method Room Air Const General: No acute distress Resp Effort & Inspection: normal respiratory effort Assessment & Plan Assessment and plan (1) History of colon polyps: Status: Acute Plan We will proceed with colonoscopy history of a colon polyp. In order to determine the appropriate follow up interval we may need to retrieve the old records from [place].
[2023-12-13 09:38] LABS: Hematocrit 33.5 % (41-53); Hemoglobin 11.1 g/dL (13.5-17.5); Mean Corpuscular HGB Conc 33.1 % (30-36); Mean Corpuscular Hemoglobin 30.6 PG (26-34); Mean Corpuscular Volume 92.6 fL (80-100); Red Blood Cell Count 3.62 X10^6/uL (4.5-5.9); Red Cell Distribution Width 15.9 % (11.6-14.8); White Blood Cell Count 4.6 X10^3/uL (4.5-11.0)
[2023-12-13 09:41] LABS: Platelet Count 27 X10^3/uL (150-400)
--- NOTE | 2023-12-13 10:43 | P.OP.COLON_ITS ---
Operative Date/Time/Diagnoses Date of procedure: 12/13/23 Time of procedure: 10:43 Pre-op diagnosis: History of colon polyps Post-op diagnosis: same Procedure & Clinicians Study performed: Colonoscopy Same procedure as scheduled: Yes Surgeon: Cl Liu Procedure Notes Procedure in detail: Surgeon: Cl Liu MD Anesthesia: Sharlene Bowden CRNA Procedure: The patient was brought to the endoscopy suite, placed in left lateral decubitus position. The patient was connected to monitoring devices. A time-out was performed. Sedation was administered. Once the patient was adequately sedated, a digital rectal exam was performed and was normal. The scope was then inserted and advanced to the cecum where the appendiceal orifice was identified and photographed. The scope was then slowly withdrawn over greater than 6 minutes. The mucosa was thoroughly inspected. There were 3 p olyps in the ascending colon. The largest was about 1 cm. It was removed with a cold snare followed by clip however it continued to ooze. A second clip was applied. There were 2 polyps approximately 7 mm in the ascending colon removed with hot snare. There was a 7 mm polyp in the transverse colon removed with a hot snare. There appeared to be fresh blood coming down the transverse colon from the ascending colon with the scope was advanced back to the ascending colon and it was noted that the polypectomy site with the 2 clips was still oozing so cautery was used to achieve hemostasis using the hot snare. Once hemostasis was observed the scope was withdrawn and the rest of the colon was examined. Tattoo ink was noted in the sigmoid colon but no residual polyp was seen. There was a 1.2 cm polyp in the rectum removed with a hot snare. The scope was retroflexed in the rectum. No other abnormalities were seen. The scope was straightened and removed. The patient was awakened and brought to recovery. Scope withdrawal time: 41 minutes Sedation time: 56 minutes EBL: 20 mL Findings: Multiple polyps as listed above Post-procedure Disposition: PACU
[2023-12-13 10:50] VITALS: BP 128/52; PULSE 90; RESP 16; TEMP 36.9; O2SAT 98
[2023-12-13 10:55] VITALS: BP 128/78; PULSE 81; RESP 16; O2SAT 98
[2023-12-13 11:00] VITALS: BP 128/55; PULSE 84; RESP 16; O2SAT 98
[2023-12-13 11:04] VITALS: BP 127/57; PULSE 88; RESP 16; TEMP 36.8; O2SAT 98
== END 2023-12-13 11:21 | disposition home or self-care (01) ==
PROVIDERS: Nurse Anesthetist, Certified Registered; Family Provider Internal Medicine; PCP Family Medicine; Referring Provider Surgery; Visit Provider Surgery
PROC: 0DJD8ZZ Inspection of Lower Intestinal Tract, Via Natural or Artificial Opening Endoscopic (ICD-10-PCS; CPT 45378; principal; 2023-12-13 08:45)
DX: Z12.11 Encounter for screening for malignant neoplasm of colon (principal); Z86.010 Personal history of colon polyps; D12.2 Benign neoplasm of ascending colon; K63.5 Polyp of colon; D12.8 Benign neoplasm of rectum
CPT/HCPCS: 45385; 85027; J2704

== ENCOUNTER → 2024-05-01 08:48 | Outpatient (CLI) | payer OTHER, SELFPAY ==
[2024-05-01 10:03] LABS: Add Manual Diff / Slide Review NO; Basophils Absolute Auto 0 /uL (0-100); Basophils Percent Auto 0.6 % (0-2); Eosinophils Absolute Auto 0 /uL (0-450); Hematocrit 34.4 % (41-53); Hemoglobin 11.5 g/dL (13.5-17.5); Lymphocytes Absolute Auto 1500 /uL (1100-4500); Lymphocytes Percent Auto 21.1 % (25-40); Mean Corpuscular HGB Conc 33.6 % (30-36); Mean Corpuscular Hemoglobin 30.2 PG (26-34); Mean Corpuscular Volume 90.1 fL (80-100); Monocytes Absolute Auto 900 /uL (0-900); Monocytes Percent Auto 11.9 % (3-14); Neutrophils Absolute Auto 4800 /uL (1500-7000); Neutrophils Percent Auto 66.4 % (50-75); Platelet Count 169 X10^3/uL (150-400); Red Blood Cell Count 3.82 X10^6/uL (4.5-5.9); Red Cell Distribution Width 18.2 % (11.6-14.8); White Blood Cell Count 7.2 X10^3/uL (4.5-11.0)
[2024-05-01 10:28] LABS: Alanine Aminotransferase 26 IU/L (<50); Albumin 3.3 g/dL (3.5-5.0); Albumin Globulin Ratio 1.3 (1.0-2.8); Alkaline Phosphatase 64 U/L (38-126); Aspartate Aminotransferase 36 IU/L (17-59); Bilirubin Total 0.7 mg/dL (0.2-1.3); Blood Urea Nitrogen 12 mg/dL (9-20); Calcium 8.7 mg/dL (8.4-10.2); Carbon Dioxide 22 mmol/L (22-32); Chloride 108 mmol/L (98-107); Estimated Glomerular Filt Rate > 60 mL/min (>60); Globulin 2.6 g/dL (1.7-4.1); Glucose 97 mg/dL (80-110); HEMOLYSIS < 15 (0-50); Potassium 4.3 mmol/L (3.4-5.1); Sodium 138 mmol/L (137-145); Total Protein 5.9 g/dL (6.3-8.2)
[2024-05-02 01:55] LABS: HIV 1 & 2 Ab/Ag 4th Gen Combo NEGATIVE (NEGATIVE); Hep C Virus Ab w/Reflex Quant NEGATIVE s/c (NEGATIVE)
== END ==
PROVIDERS: Family Provider Internal Medicine; PCP Family Medicine; Referring Provider Family Medicine; Visit Provider Family Medicine
DX: D69.6 Thrombocytopenia, unspecified (principal)
CPT/HCPCS: 36415; 80053; 85025; 86803; 87389

== ENCOUNTER → 2024-05-08 13:03 | Outpatient (CLI) | payer OTHER, SELFPAY | LOC: WC 13:04 | PROVIDERS: Family Provider Internal Medicine; PCP Family Medicine; Referring Provider Family Medicine; Visit Provider Surgery | DX: L97.812 Non-pressure chronic ulcer of other part of right lower leg with fat layer exposed (principal); I87.2 Venous insufficiency (chronic) (peripheral); R60.0 Localized edema; I89.0 Lymphedema, not elsewhere classified; D69.6 Thrombocytopenia, unspecified; I10 Essential (primary) hypertension | CPT/HCPCS: 11042; 87070; 87075; 87077; 87147; 87186; 87205; 99214 ==

== ENCOUNTER → 2024-05-12 13:39 | Outpatient (CLI) | payer OTHER, SELFPAY | LOC: CAR 13:39 | PROVIDERS: Family Provider Internal Medicine; PCP Family Medicine; Referring Provider Family Medicine; Visit Provider Family Medicine | DX: I48.91 Unspecified atrial fibrillation (principal); I48.92 Unspecified atrial flutter | CPT/HCPCS: 93246 ==

== ENCOUNTER → 2024-05-13 10:13 | Outpatient (CLI) | payer OTHER, SELFPAY | LOC: WC 10:14 | PROVIDERS: Family Provider Internal Medicine; PCP Family Medicine; Referring Provider Family Medicine; Visit Provider Surgery | DX: L97.812 Non-pressure chronic ulcer of other part of right lower leg with fat layer exposed (principal); I87.2 Venous insufficiency (chronic) (peripheral); R60.0 Localized edema; D69.6 Thrombocytopenia, unspecified; I89.0 Lymphedema, not elsewhere classified | CPT/HCPCS: 11042 ==

== ENCOUNTER → 2024-05-20 13:09 | Outpatient (CLI) | payer OTHER, SELFPAY | LOC: WC 13:12 | PROVIDERS: Family Provider Internal Medicine; PCP Family Medicine; Referring Provider Family Medicine; Visit Provider Surgery | DX: L97.812 Non-pressure chronic ulcer of other part of right lower leg with fat layer exposed (principal); I87.2 Venous insufficiency (chronic) (peripheral); I89.0 Lymphedema, not elsewhere classified; L53.9 Erythematous condition, unspecified; D69.6 Thrombocytopenia, unspecified | CPT/HCPCS: 11042 ==

== ENCOUNTER → 2024-05-23 13:57 | Outpatient (CLI) | payer OTHER, SELFPAY | LOC: WC 13:57 | PROVIDERS: Family Provider Internal Medicine; PCP Family Medicine; Referring Provider Family Medicine; Visit Provider Surgery | DX: L97.822 Non-pressure chronic ulcer of other part of left lower leg with fat layer exposed (principal); I87.2 Venous insufficiency (chronic) (peripheral); R60.0 Localized edema; L53.9 Erythematous condition, unspecified; R21 Rash and other nonspecific skin eruption | CPT/HCPCS: 29580 ==

== ENCOUNTER → 2024-05-27 15:20 | Outpatient (CLI) | payer OTHER, SELFPAY | PROVIDERS: Family Provider Internal Medicine; PCP Family Medicine; Referring Provider Family Medicine; Visit Provider Surgery | DX: L97.812 Non-pressure chronic ulcer of other part of right lower leg with fat layer exposed (principal); I87.2 Venous insufficiency (chronic) (peripheral); I89.0 Lymphedema, not elsewhere classified; L53.9 Erythematous condition, unspecified; R21 Rash and other nonspecific skin eruption; D69.6 Thrombocytopenia, unspecified | CPT/HCPCS: 11042 ==

== ENCOUNTER → 2024-06-03 15:18 | Outpatient (CLI) | payer OTHER, SELFPAY | LOC: WC 15:19 | PROVIDERS: Family Provider Internal Medicine; PCP Family Medicine; Referring Provider Family Medicine; Visit Provider Surgery | DX: L97.812 Non-pressure chronic ulcer of other part of right lower leg with fat layer exposed (principal); I87.2 Venous insufficiency (chronic) (peripheral); I89.0 Lymphedema, not elsewhere classified; R21 Rash and other nonspecific skin eruption; L53.9 Erythematous condition, unspecified; D69.6 Thrombocytopenia, unspecified | CPT/HCPCS: 97602; 99213 ==

== ENCOUNTER → 2024-06-10 15:08 | Outpatient (CLI) | payer OTHER, SELFPAY | LOC: WC 15:14 | PROVIDERS: Family Provider Internal Medicine; PCP Family Medicine; Referring Provider Family Medicine; Visit Provider Surgery | DX: I89.0 Lymphedema, not elsewhere classified (principal); I87.2 Venous insufficiency (chronic) (peripheral); R60.0 Localized edema; D69.6 Thrombocytopenia, unspecified | CPT/HCPCS: 29580; 99213 ==

== ENCOUNTER 2024-08-15 09:53 | Emergency (ER) | payer OTHER, SELFPAY ==
[2024-08-15] VITALS (7 sets, daily range): BP systolic 164–176; BP diastolic 79–84; PULSE 91–102; RESP 16–22; TEMP 36.8; O2SAT 95–97; BMI 45.6
--- NOTE | 2024-08-15 10:07 | ED_ITS ---
HPI - Extremity Problem General Chief complaint: Extremity Problem,Nontraumatic Stated complaint: infection in legs Time Seen by Provider: 08/15/24 10:05 Source: patient Mode of arrival: Ambulatory History of Present Illness HPI Narrative: 63-year-old male with history of lymphedema, followed by wound care clinic Dr. Fontanez, also by PCP Dr. Cruz, currently not on any antibiotic, having venous wraps lower extremities done by at home, increasing redness to the lower extremities noted since yesterday Related Data Previous Rx's Medication Instructions Recorded amiodarone 200 mg tablet 200 mg PO DAILY #30 tabs 04/14/24 Disabled Parking #1 ea 04/25/24 clotrimazole-betamethasone 1 1 applic topical BID #45 grams 05/26/24 %-0.05 % topical cream amlodipine 5 mg tablet 5 mg PO DAILY #90 tabs 07/07/24 losartan 100 mg tablet 100 mg PO DAILY #90 tabs 07/07/24 cephalexin 500 mg capsule 500 mg PO QID 7 days #28 caps 08/15/24 Allergies Allergy/AdvReac Type Severity Reaction Status Date / Time No Known Drug Allergies Allergy Verified 08/15/24 10:01 Patient History Medical History (Updated 08/15/24 @ 11:24 by James Everett MD) Prediabetes Thrombocytopenia Hypertension Seizure Surgical History (Updated 03/12/23 @ 10:31 by Tuhy Evans MD) S/P hernia repair Status post right knee replacement Family History (Updated 03/12/23 @ 10:33 by Thuy Evans MD) Mother Cancer Brother Myocardial infarct Social History Smoking Status: Never smoker Smoking Status: Never smoker alcohol intake frequency: a few times a week Exam Narrative Exam Narrative: GENERAL: Well-developed patient, in mild distress. HEAD: Atraumatic. Normocephalic. EYES: Pupils equal round and reactive. Extraocular motions intact. No scleral icterus. No injection or drainage. ENT: Nose without bleeding, purulent drainage. Throat without erythema, tonsillar hypertrophy or exudate. Airway patent. NECK: Trachea midline. Non tender CARDIOVASCULAR: Regular rate and rhythm without murmurs, gallops, or rubs. RESPIRATORY: Clear to auscultation. Breath sounds equal bilaterally. No wheezes, rales, or rhonchi. GASTROINTESTINAL: Abdomen soft, non-tender, nondistended. EXTREMITIES: Venous stasis changes, compression wrap and cling wrap dressing removed, no ulcerations at this time, some redness and warmth RLE > LLE forelegs, c/w cellulitis BACK: Nontender without deformity or crepitance. No flank tenderness. NEURO: AOx3. Motor functions grossly nonfocal SKIN: No rash or erythema of visible areas Initial Vital Signs Initial Vital Signs: Vital Signs Temperature 98.2 F 08/15/24 09:54 Pulse Rate 97 H 08/15/24 09:54 Respiratory Rate 16 08/15/24 09:54 Blood Pressure 176/84 H 08/15/24 09:54 Pulse Oximetry 96 08/15/24 09:54 Oxygen Delivery Method Room Air 08/15/24 09:54 Course Orders Ordered: ED Orders 08/15/24 11:29 Lactate (Lactic Acid) Stat Discontinued Medications Sodium Chloride (Normal Saline 0.9%) 1,000 mls @ 1,000 mls/hr IV BOLUS ONE Stop: 08/15/24 11:03 Last Infusion: 08/15/24 11:30 Dose: Infused Documented By: Admin: 08/15/24 10:37 Dose: 1,000 mls/hr Documented By: RICHARD Ceftriaxone Sodium 1,000 mg/ (Sodium Chloride) 100 mls @ 200 mls/hr IV NOW ONE Stop: 08/15/24 10:09 Last Infusion: 08/15/24 11:08 Dose: Infused Documented By: Admin: 08/15/24 10:36 Dose: 200 mls/hr Documented By: RICHARD Ondansetron HCl (Ondansetron 4 Mg/2 Ml Inj) 4 mg IV NOW PRN PRN Reason: Nausea And Vomiting Vital Signs Vital signs: Vital Signs - 8 hr 08/15/24 12:00 08/15/24 12:00 Pulse Rate 91 H Respiratory Rate 17 Blood Pressure 164/81 H Pulse Oximetry 95 MDM - Extremity (Nontraumatic) Lab Data 08/15/24 10:06 08/15/24 10:06 Labs: Lab Results 08/15/24 08/15/24 Range/Units 10:06 11:29 WBC 4.2 L (4.5-11.0) X10^3/uL RBC 4.49 L (4.5-5.9) X10^6/uL Hgb 12.2 L (13.5-17.5) g/dL Hct 38.1 L (41-53) % MCV 84.8 (80-100) fL MCH 27.2 (26-34) PG MCHC 32.0 (30-36) % RDW 17.6 H (11.6-14.8) % Plt Count 67 L (150-400) X10^3/uL Neut % (Auto) 73.7 (50-75) % Lymph % (Auto) 17.9 L (25-40) % [place]undy % (Auto) 7.9 (3-14) % Eos % (Auto) 0.0 L (2-4) % Baso % (Auto) 0.5 (0-2) % Neut # (Auto) 3100 (9372-4381) /uL Lymph # (Auto) 700 L (7087-1078) /uL [place]undy # (Auto) 300 (0-900) /uL Eos # (Auto) 0 (0-450) /uL Baso # (Auto) 0 (0-100) /uL PT 13.2 H (9.4-12.5) SECONDS INR 1.2 (0.9-1.3) APTT 39 H (25.1-36.5) SECONDS Sodium 142 (137-145) mmol/L Potassium 4.1 (3.4-5.1) mmol/L Chloride 108 H (98-107) mmol/L Carbon Dioxide 24 (22-32) mmol/L BUN 13 (9-20) mg/dL Creatinine 1.13 (0.66-1.25) mg/dL Estimated GFR > 60 (>60) mL/min BUN/Creatinine Ratio 11.5 (6-22) Glucose 154 H (80-110) mg/dL Lactate 2.3 H 1.8 (0.7-2.1) mmol/L Calcium 8.3 L (8.4-10.2) mg/dL Total Bilirubin 0.8 (0.2-1.3) mg/dL AST 78 H (17-59) IU/L ALT 34 (<50) IU/L Alkaline Phosphatase 93 (38-126) U/L Total Protein 7.4 (6.3-8.2) g/dL Albumin 4.0 (3.5-5.0) g/dL Globulin 3.4 (1.7-4.1) g/dL Albumin/Globulin Ratio 1.2 (1.0-2.8) Lipase 235 (23-300) U/L Procalcitonin 0.107 (<0.5) ng/mL Urine Dip Bedside Urine Glucose Negative Bedside Urine Bilirubin - Negative Bedside Urine Ketone - Negative Urine Specific [place] 1.010 Bedside Urine Occult Blood - Negative Bedside Urine pH 6.0 Bedside Urine Protein - Negative Bedside Urine Urobilinogen - Negative Bedside Urine Nitrite - Negative Bedside Urine Leukocytes - Negative Esterase Imaging Data Chest x-ray: Radiologist's Impression: Close Chest X-Ray (Signed) Nir Pope - 08/15/24 Launch?Image [address] [address] XRay Report Signed Patient: Rupesh Olmedo MR#: [id number] : 1960 Acct:[id number] Age/Sex: 63 / M Date of Service: 08/15/24 Loc: ED Accession Number: [id number] Procedure: XR chest 1V Ordering Provider: James Everett MD PROCEDURE: XR CHEST 1V INDICATIONS: suspected sepsis TECHNIQUE: One view of the chest was acquired. COMPARISON: [facility], , XR CHEST 2V, 12/01/2021, 14:38. FINDINGS: Surgical changes and devices: None. Lungs and pleura: Lungs are clear. No pleural effusions or pneumothorax. Mediastinum: Mediastinal contours appear normal. Heart size is normal. Bones and chest wall: No suspicious bony lesions. Overlying soft tissues appear unremarkable. IMPRESSION: No acute cardiopulmonary abnormality is seen. Dictated by: Nir Pope M.D. on 08/15/2024 at 11:09 Approved by: Nir Pope M.D. on 08/15/2024 at 11:10 ECG Data Attestation EKG: I personally reviewed and interpreted this ECG as follows: Interpretation: Normal sinus rhythm with rate of 94, no obvious ST segment elevation or depression changes. OR 172, QRS 90, QTC 465. MDM Narrative Medical decision making narrative: 63-year-old male with chronic lymphedema, compression wraps done at home, has followed by wound clinic has had ulcers in the past but none recent known, now with increasing redness to both legs, right leg more so than the left leg. No fever on triage. Normotensive. Not currently on antibiotics. Vmpaj-[id number]-woom-left lower extremity cellulitis without ulceration at this time. IV ceftriaxone, blood culture sent. 1125, case discussed with PCP Dr. Evans, we will treat as outpatient for now, oral Keflex which patient has tolerated well in the past. We will send prescription to pharmacy. Follow up with PCP early next week advised. Discharged home with . Discharge Plan Departure Patient Disposition: Home Clinical Impression: Bilateral lower leg cellulitis, Chronic acquired lymphedema Activity Restrictions/Additional Instructions: Chronic lymphedema, redness to both legs, no ulceration but some weepiness on examination. No fever on triage. No recent antibiotics. IV ceftriaxone antibiotic given after blood cultures. Case discussed with your primary Dr Evans, we will treat as an outpatient for now, prescription for Keflex/cephalexin oral antibiotic to be sent to your pharmacy. Take antibiotics as directed for full 7 day course. Follow up with your primary care doctor early next week. Return to this/nearest emergency department for any change worsening symptoms or any concerns prior Prescriptions: New cephalexin 500 mg capsule 500 mg PO QID 7 Days Qty: 28 0RF No Action (DME) Disabled Parking See Rx Instructions .ROUTE .MEDSUPPLY Qty: 1 0RF Rx Instructions: I find this patient to be medical disabled and qualified for Disabled Parking as indicated, and signed, on the and the Accompanying Disabled Parking Application for Individuals. clotrimazole-betamethasone 1-0.05 % cream 1 applic topical BID Qty: 45 2RF amiodarone 200 mg tablet 200 mg PO DAILY Qty: 30 2RF amlodipine 5 mg tablet 5 mg PO DAILY Qty: 90 0RF losartan 100 mg tablet 100 mg PO DAILY Qty: 90 1RF Referrals: Thuy Evans MD [Primary Care Provider] - Stand Alone Forms: Patient Portal/API/Survey, Work Release Note
--- NOTE | 2024-08-15 10:09 | EKG_ITS ---
[address] [address] Test Date: 2024-08-15 Pat Name: Rupesh Olmedo Department: Room: Gender: Male Color Maker: CALLY : 1960 Requested By: Order Number: [id number] Reading MD: Galo Talley Measurements Intervals [place] Rate: 94 P: 74 LA: 172 QRS: -11 QRSD: 90 T: 28 QT: 372 QTc: 465 Interpretive Statements Normal sinus rhythm Electronically Signed On 08-15-2024 18:52:38 PST by Galo Talley
[2024-08-15 10:17] LABS: Add Manual Diff / Slide Review NO; Basophils Absolute Auto 0 /uL (0-100); Basophils Percent Auto 0.5 % (0-2); Eosinophils Absolute Auto 0 /uL (0-450); Hematocrit 38.1 % (41-53); Hemoglobin 12.2 g/dL (13.5-17.5); Lymphocytes Absolute Auto 700 /uL (1100-4500); Lymphocytes Percent Auto 17.9 % (25-40); Mean Corpuscular Hemoglobin 27.2 PG (26-34); Mean Corpuscular Volume 84.8 fL (80-100); Monocytes Absolute Auto 300 /uL (0-900); Monocytes Percent Auto 7.9 % (3-14); Neutrophils Absolute Auto 3100 /uL (1500-7000); Neutrophils Percent Auto 73.7 % (50-75); Platelet Count 67 X10^3/uL (150-400); Red Blood Cell Count 4.49 X10^6/uL (4.5-5.9); Red Cell Distribution Width 17.6 % (11.6-14.8); White Blood Cell Count 4.2 X10^3/uL (4.5-11.0)
[2024-08-15 10:24] LABS: INR 1.2 (0.9-1.3); Prothrombin Time 13.2 SECONDS (9.4-12.5)
[2024-08-15 10:26] LABS: PTT Partial Thromboplastin Tim 39 SECONDS (25.1-36.5)
[2024-08-15 10:28] LABS: Lactate (Lactic Acid) 2.3 mmol/L (0.7-2.1)
[2024-08-15 10:29] LABS: Alanine Aminotransferase 34 IU/L (<50); Albumin Globulin Ratio 1.2 (1.0-2.8); Alkaline Phosphatase 93 U/L (38-126); Aspartate Aminotransferase 78 IU/L (17-59); BUN Creatinine Ratio 11.5 (6-22); Bilirubin Total 0.8 mg/dL (0.2-1.3); Blood Urea Nitrogen 13 mg/dL (9-20); Calcium 8.3 mg/dL (8.4-10.2); Carbon Dioxide 24 mmol/L (22-32); Chloride 108 mmol/L (98-107); Estimated Glomerular Filt Rate > 60 mL/min (>60); Globulin 3.4 g/dL (1.7-4.1); Glucose 154 mg/dL (80-110); HEMOLYSIS < 15 (0-50); Lipase 235 U/L (23-300); Potassium 4.1 mmol/L (3.4-5.1); Sodium 142 mmol/L (137-145); Total Protein 7.4 g/dL (6.3-8.2)
[2024-08-15] MEDS: cefTRIAXone 1,000 MG in SODIUM CHLORIDE 0.9% 100 ML 200 MG IV (10:36)
[2024-08-15] MEDS: SODIUM CHLORIDE 0.9% 1,000 ML 1000 ML IV (10:37)
[2024-08-15 10:46] LABS: Procalcitonin 0.107 ng/mL (<0.5)
[2024-08-15 11:48] LABS: Reflexed Lactate in 2 Hours Y
[2024-08-15 11:49] LABS: Lactate (Lactic Acid) 1.8 mmol/L (0.7-2.1)
== END 2024-08-15 12:25 | disposition home or self-care (01) ==
PROVIDERS: Emergency Provider Emergency Medicine; Family Provider Internal Medicine; PCP Family Medicine
DX: L03.116 Cellulitis of left lower limb (principal); L03.115 Cellulitis of right lower limb; I89.0 Lymphedema, not elsewhere classified
CPT/HCPCS: 36415; 71045; 80053; 81003; 83605; 83690; 84145; 85025; 85610; 85730; 87040; 93005; 96361; 96365; 99284; J0696

== ENCOUNTER 2024-10-16 13:29 | Observation (INO) | payer OTHER, SELFPAY ==
[2024-10-16] VITALS (21 sets, daily range): BP systolic 111–151; BP diastolic 61–92; PULSE 76–107; RESP 11–23; TEMP 36.2–36.3; O2SAT 94–98; BMI 45.2
--- NOTE | 2024-10-16 13:53 | DI.RAD.S_ITS ---
PROCEDURE: XR CHEST 1V INDICATIONS: chest pain TECHNIQUE: One view of the chest was acquired. COMPARISON: [facility], CR, XR CHEST 1V, 08/15/2024, 10:02. [facility], CR, XR CHEST 2V, 12/01/2021, 14:38. FINDINGS: Surgical changes and devices: None. Lungs and pleura: No consolidation or effusions. No pneumothorax. Mediastinum: Mediastinal contours appear normal. Heart size is enlarged. Bones and chest wall: No suspicious bony lesions. Overlying soft tissues appear unremarkable. IMPRESSION: No acute cardiopulmonary process. Dictated by: Jaime Venegas M.D. on 10/16/2024 at 14:49 Approved by: Jaime Venegas M.D. on 10/16/2024 at 14:50
--- NOTE | 2024-10-16 13:53 | EKG_ITS ---
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
[2024-10-16 14:16] LABS: Add Manual Diff / Slide Review NO; Basophils Absolute Auto 100 /uL (0-100); Basophils Percent Auto 1.5 % (0-2); Eosinophils Absolute Auto 0 /uL (0-450); Hematocrit 36.2 % (41-53); Hemoglobin 11.9 g/dL (13.5-17.5); Lymphocytes Absolute Auto 1200 /uL (1100-4500); Lymphocytes Percent Auto 23.3 % (25-40); Mean Corpuscular HGB Conc 32.9 % (30-36); Mean Corpuscular Hemoglobin 30.6 PG (26-34); Monocytes Absolute Auto 700 /uL (0-900); Monocytes Percent Auto 12.8 % (3-14); Neutrophils Absolute Auto 3300 /uL (1500-7000); Neutrophils Percent Auto 62.4 % (50-75); Platelet Count 161 X10^3/uL (150-400); Red Blood Cell Count 3.89 X10^6/uL (4.5-5.9); Red Cell Distribution Width 21.4 % (11.6-14.8); White Blood Cell Count 5.2 X10^3/uL (4.5-11.0)
[2024-10-16 14:26] LABS: Alanine Aminotransferase 55 IU/L (<50); Albumin 3.9 g/dL (3.5-5.0); Albumin Globulin Ratio 1.2 (1.0-2.8); Alkaline Phosphatase 112 U/L (38-126); Aspartate Aminotransferase 135 IU/L (17-59); BUN Creatinine Ratio 12.1 (6-22); Bilirubin Total 1.4 mg/dL (0.2-1.3); Blood Urea Nitrogen 14 mg/dL (9-20); Calcium 8.1 mg/dL (8.4-10.2); Carbon Dioxide 25 mmol/L (22-32); Chloride 107 mmol/L (98-107); Creatine Kinase 219 U/L (55-170); Estimated Glomerular Filt Rate > 60 mL/min (>60); Globulin 3.3 g/dL (1.7-4.1); Glucose 106 mg/dL (80-110); HEMOLYSIS < 15 (0-50); Lipase 420 U/L (23-300); Magnesium 1.6 mg/dL (1.6-2.3); Potassium 4.1 mmol/L (3.4-5.1); Sodium 141 mmol/L (137-145); Total Protein 7.2 g/dL (6.3-8.2)
[2024-10-16 14:38] LABS: Anisocytosis 1+; NT-proBNP (BNP-Adult 18+) 218 pg/mL (<125); Platelet Estimate Adequate on smear; Troponin I < 0.012 ng/mL (0.01-0.034)
[2024-10-16 14:47] LABS: INR 1.2 (0.9-1.3); Prothrombin Time 13.1 SECONDS (9.4-12.5)
[2024-10-16 14:50] LABS: PTT Partial Thromboplastin Tim 44 SECONDS (25.1-36.5)
--- NOTE | 2024-10-16 15:26 | PC.NURSE ---
placed by another nurse
--- NOTE | 2024-10-16 17:57 | ED_ITS ---
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 Saw his PCP Dr. Evans yesterday and was doing well. This afternoon he was walking across his floor at home, woke up on the floor, did not recall any preceding chest pain or palpitations, no shaking, no incontinence, did not seem to sustain any injury. No focal weakness to face arm or leg. No focal numbness to face arm or leg. He woke up on the floor, had generalized weakness unable to get up off the floor, discovered by his on the floor who assisted him up to chair, called 911, arrival by ambulance. He feels improved, no longer feels weak, denies chest pain, denies palpitations, denies focal weakness or numbness. Related Data Home Medications Medication Instructions Recorded Confirmed losartan 50 mg tablet 50 mg PO DAILY 09/03/24 10/16/24 amlodipine 5 mg tablet 5 mg PO DAILY 10/16/24 10/16/24 metoprolol succinate 50 mg 25 mg PO DAILY 10/16/24 10/16/24 tablet,extended release 24 hr Previous Rx's Medication Instructions Recorded Disabled Parking #1 ea 04/25/24 Lactobacillus acidophilus 500 500 mmu cells PO DAILY #30 caps 09/03/24 million cell capsule fluoxetine 20 mg capsule 20 mg PO DAILY #30 caps 09/03/24 furosemide 20 mg tablet 20 mg PO DAILY #30 tabs 09/03/24 cadexomer iodine 0.9 % topical gel 40 g topical 3XW #40 grams 10/15/24 (Iodosorb) clotrimazole-betamethasone 1 1 applic topical BID #45 grams 10/15/24 %-0.05 % topical cream Allergies Allergy/AdvReac Type Severity Reaction Status Date / Time No Known Drug Allergies Allergy Verified 10/16/24 13:54 Patient History Medical History (Updated 10/16/24 @ 21:07 by James Everett MD) Prediabetes Thrombocytopenia Hypertension Seizure Surgical History (Updated 03/12/23 @ 10:31 by Thuy Evans MD) S/P hernia repair Status post right knee replacement Family History (Updated 03/12/23 @ 10:33 by Thuy Evans MD) Mother Cancer Brother Myocardial infarct Social History household members: spouse Smoking Status: Never smoker alcohol intake: current Smoking Status: Never smoker alcohol intake frequency: a few times a week Exam Narrative Exam Narrative: GENERAL: Well-developed patient, in mild distress. HEAD: Atraumatic. Normocephalic. EYES: Pupils equal round and reactive. Extraocular motions intact. No scleral icterus. No injection or drainage. ENT: Nose without bleeding, purulent drainage. Throat without erythema, tonsillar hypertrophy or exudate. Airway patent. NECK: Trachea midline. Non tender CARDIOVASCULAR: Regular rate and rhythm without murmurs, gallops, or rubs. RESPIRATORY: Clear to auscultation. Breath sounds equal bilaterally. No wheezes, rales, or rhonchi. GASTROINTESTINAL: Abdomen soft, non-tender, nondistended. EXTREMITIES: Bilateral lower extremity edema, wrapped in jobs like stockings, edema about baseline per patient/. BACK: Nontender without deformity or crepitance. No flank tenderness. NEURO: AOx3. Motor functions grossly nonfocal SKIN: No rash or erythema of visible areas Initial Vital Signs Initial Vital Signs: Vital Signs Temperature 97.4 F L 10/16/24 13:30 Pulse Rate 84 10/16/24 13:30 Respiratory Rate 16 10/16/24 13:30 Blood Pressure 134/84 10/16/24 13:30 Pulse Oximetry 97 10/16/24 13:30 Oxygen Delivery Method Room Air 10/16/24 13:30 Course Orders Ordered: ED Orders 10/16/24 18:48 CT angio chest PE protocol Stat CT head/brain wo con Stat 10/16/24 18:49 CT abdomen pelvis w con Stat 10/16/24 19:30 Troponin I Stat Acetaminophen (Acetaminophen 325 Mg Tablet) 650 mg PO Q6H PRN PRN Reason: Fever/Mild Pain (1-3) Al Hydrox/Mg Hydrox/Simethicone (Mag Hydrox/Alum/Simeth 30 Ml Udc) 30 ml PO Q6HR PRN PRN Reason: Dyspepsia Amlodipine Besylate (Amlodipine 5 Mg Tablet) 5 mg PO DAILY EZEKIEL Fluoxetine HCl (Fluoxetine 20 Mg Capsule) 20 mg PO DAILY EZEKIEL Furosemide (Furosemide 20 Mg Tablet) 20 mg PO DAILY EZEKIEL Losartan Potassium (Losartan 50 Mg Tablet) 50 mg PO DAILY EZEKIEL Magnesium Hydroxide (Magnesium Hydroxide 30 Ml Udc) 30 ml PO DAILY PRN PRN Reason: Constipation Naloxone HCl (Naloxone 0.4 Mg/Ml Vial) 0.2 mg IV Q2MIN PRN PRN Reason: Opiate Reversal Non-Formulary Medication (Cadexomer Iodine [Iodosorb]) 40 gram TOP MoWeFr@0900 EZEKIEL Ondansetron HCl (Ondansetron 4 Mg Odt) 4 mg PO Q8HR PRN PRN Reason: Nausea And Vomiting Discontinued Medications Sodium Chloride (Normal Saline 0.9%) 1,000 mls @ 1,000 mls/hr IV BOLUS ONE Stop: 10/16/24 19:48 Last Admin: 10/16/24 19:31 Dose: 1,000 mls/hr Documented By: HNG Vital Signs Vital signs: Vital Signs - 8 hr 10/16/24 19:30 10/16/24 20:00 10/16/24 20:30 Pulse Rate 107 H 88 92 H Respiratory Rate 11 L 15 Blood Pressure Pulse Oximetry 95 95 94 10/16/24 20:55 10/16/24 20:55 10/16/24 21:00 Pulse Rate 93 H Respiratory Rate 23 Blood Pressure 117/63 126/73 Pulse Oximetry 94 10/16/24 21:00 Pulse Rate 98 H Respiratory Rate 14 Blood Pressure Pulse Oximetry 96 Medical Decision Making Lab Data Lab results reviewed: Yes I reviewed the patient's lab results. Lab results narrative: White blood cell count 5200, hemoglobin 11.1, platelets adequate. Basic metabolic panel unremarkable, glucose 106 noted. Normal renal function electrolytes. T bili 1.4, AST 135, ALT 55, alkaline phosphatase 112. CPK 219. BNP 218. Troponin x2 sets negative/unmeasurable. Urine dip negative. 10/16/24 14:00 10/16/24 14:00 Labs: Lab Results 10/16/24 10/16/24 Range/Units 14:00 19:30 WBC 5.2 (4.5-11.0) X10^3/uL RBC 3.89 L (4.5-5.9) X10^6/uL Hgb 11.9 L (13.5-17.5) g/dL Hct 36.2 L (41-53) % MCV 93.0 (80-100) fL MCH 30.6 (26-34) PG MCHC 32.9 (30-36) % RDW 21.4 H (11.6-14.8) % Plt Count 161 (150-400) X10^3/uL Neut % (Auto) 62.4 (50-75) % Lymph % (Auto) 23.3 L (25-40) % Grundy % (Auto) 12.8 (3-14) % Eos % (Auto) 0.0 L (2-4) % Baso % (Auto) 1.5 (0-2) % Neut # (Auto) 3300 (0280-4252) /uL Lymph # (Auto) 1200 (4906-9028) /uL Grundy # (Auto) 700 (0-900) /uL Eos # (Auto) 0 (0-450) /uL Baso # (Auto) 100 (0-100) /uL Platelet Estimate Adequate on smear RBC Morphology See below Anisocytosis 1+ H PT 13.1 H (9.4-12.5) SECONDS INR 1.2 (0.9-1.3) APTT 44 H (25.1-36.5) SECONDS Sodium 141 (137-145) mmol/L Potassium 4.1 (3.4-5.1) mmol/L Chloride 107 (98-107) mmol/L Carbon Dioxide 25 (22-32) mmol/L BUN 14 (9-20) mg/dL Creatinine 1.16 (0.66-1.25) mg/dL Estimated GFR > 60 (>60) mL/min BUN/Creatinine Ratio 12.1 (6-22) Glucose 106 (80-110) mg/dL Calcium 8.1 L (8.4-10.2) mg/dL Magnesium 1.6 (1.6-2.3) mg/dL Total Bilirubin 1.4 H (0.2-1.3) mg/dL AST 135 H (17-59) IU/L ALT 55 H (<50) IU/L Alkaline Phosphatase 112 (38-126) U/L Total Creatine Kinase 219 H (55-170) U/L Troponin I < 0.012 < 0.012 (0.01-0.034) ng/mL NT-Pro-B Natriuret Pep 218 H (<125) pg/mL Total Protein 7.2 (6.3-8.2) g/dL Albumin 3.9 (3.5-5.0) g/dL Globulin 3.3 (1.7-4.1) g/dL Albumin/Globulin Ratio 1.2 (1.0-2.8) Lipase 420 H (23-300) U/L Urine Dip Bedside Urine Glucose Negative Bedside Urine Bilirubin - Negative Bedside Urine Ketone - Negative Urine Specific Gillespie 1.015 Bedside Urine Occult Blood - Negative Bedside Urine pH 6.0 Bedside Urine Protein - Negative Bedside Urine Urobilinogen - Negative Bedside Urine Nitrite - Negative Bedside Urine Leukocytes - Negative Esterase Point of care testing: Urine Dip Bedside Urine Glucose Negative Bedside Urine Bilirubin - Negative Bedside Urine Ketone - Negative Urine Specific Gillespie 1.015 Bedside Urine Occult Blood - Negative Bedside Urine pH 6.0 Bedside Urine Protein - Negative Bedside Urine Urobilinogen - Negative Bedside Urine Nitrite - Negative Bedside Urine Leukocytes - Negative Esterase Imaging Data Chest x-ray: Radiologist's Impression: [place] [address] XRay Report Signed Patient: Rupesh Olmedo MR#: [id number] : 1960 Acct:[id number] Age/Sex: 63 / M Date of Service: 10/16/24 Loc: ED Accession Number: [id number] Procedure: XR chest 1V Ordering Provider: Virgilio Amaya D.O. PROCEDURE: XR CHEST 1V INDICATIONS: chest pain TECHNIQUE: One view of the chest was acquired. COMPARISON: [facility], CR, XR CHEST 1V, 08/15/2024, 10:02. [facility], CR, XR CHEST 2V, 12/01/2021, 14:38. FINDINGS: Surgical changes and devices: None. Lungs and pleura: No consolidation or effusions. No pneumothorax. Mediastinum: Mediastinal contours appear normal. Heart size is enlarged. Bones and chest wall: No suspicious bony lesions. Overlying soft tissues appear unremarkable. IMPRESSION: No acute cardiopulmonary process. Dictated by: Jaime Venegas M.D. on 10/16/2024 at 14:49 Approved by: Jaime Venegas M.D. on 10/16/2024 at 14:50 CT scan - head: Radiologist's Impression: [address] [address] [address] Scan Report Signed Patient: Rupesh Olmedo MR#: [id number] : 1960 Acct:[id number] Age/Sex: 63 / M Date of Service: 10/16/24 Loc: ED Accession Number: [id number] Procedure: CT head/brain wo con Ordering Provider: James Everett MD PROCEDURE: CT HEAD/BRAIN WO CON INDICATIONS: syncope TECHNIQUE: Noncontrast 4.5 mm thick angled axial sections acquired from the foramen magnum to the vertex, with coronal and sagittal reformats. For radiation dose reduction, the following was used: automated exposure control, adjustment of mA and/or kV according to patient size. COMPARISON: [facility], CT, CT HEAD/BRAIN WO CON, 07/24/2021, 14:32. FINDINGS: Image quality: Diagnostic. CSF spaces: Basal cisterns are patent. No extra-axial fluid collections. The ventricles are symmetric in size and shape. Brain: No intracranial bleeds or masses. There is cerebral volume loss for age, with resultant ventricular and sulcal prominence. There are periventricular and deep white matter chronic small vessel ischemic changes. There is intracranial internal carotid artery atherosclerosis. Skull and face: Calvarium and visualized facial bones appear intact, without suspicious lesions. Sinuses: Visualized sinuses and mastoids are clear. IMPRESSION: 1. CT head without acute intracranial abnormalities or acute calvarial fractures. 2. Age-related senescent changes and sequela of chronic small vessel ischemic disease. Dictated by: Mario Cho M.D. on 10/16/2024 at 19:52 Approved by: Mario Cho M.D. on 10/16/2024 at 19:53 CT angiogram chest: Radiologist's Impression: [address] [address] [address] Scan Report Signed Patient: Rupesh Olmedo MR#: [id number] : 1960 Acct:[id number] Age/Sex: 63 / M Date of Service: 10/16/24 Loc: ED Accession Number: [id number] Procedure: CT angio chest PE protocol Ordering Provider: James Everett MD PROCEDURE: CT ANGIO CHEST PE PROTOCOL INDICATIONS: syncopal episode TECHNIQUE: After the administration of intravenous contrast, 2 mm thick sections acquired from the pulmonary apices to the posterior costophrenic angles. 3-dimensional maximum intensity projection (MIP) coronal and sagittal reformats were then acquired through the thorax. For radiation dose reduction, the following was used: automated exposure control, adjustment of mA and/or kV according to patient size. COMPARISON: [facility], CT, CT ANGIO CHEST ABDOMEN PELVIS, 07/24/2021, 11:47. [facility], CR, XR CHEST 1V, 10/16/2024, 13:58. FINDINGS: Image quality: Diagnostic. Pulmonary arteries: Pulmonary arteries are normal in size, and demonstrate no intraluminal filling defects to suggest central pulmonary embolism. Lower Neck: No enlarged lymph nodes. Thyroid: No thyroid nodules which require sonographic follow up, per consensus guidelines. Axillae: No enlarged lymph nodes. Chest Wall: Bilateral gynecomastia. Bones: Visualized osseous structures appear intact without acute fracture or focal destructive lesion. No acute compression fractures of the imaged spine. Lungs and Pleura: No pneumothorax or pleural effusions. Bibasilar atelectasis. Mild bilateral perihilar airway thickening. No septal thickening or nodularity. No suspicious pulmonary nodules. Heart: Cardiomegaly. No pericardial effusion. Thoracic Vessels: No aortic aneurysm. Mediastinum and Meghan: No enlarged lymph nodes. Esophagus: No wall thickening. No hiatal hernia. Upper Abdomen: Hepatic steatosis. Other visualized upper abdomen solid organs and bowel loops appear normal. IMPRESSION: No acute pulmonary embolus. Cardiomegaly. Minimal bilateral perihilar airway thickening which is nonspecific and may represent bronchitis either infectious or inflammatory in etiology. No dense consolidation. No focal consolidation. Hepatic steatosis. Other chronic findings as above Dictated by: Mario Cho M.D. on 10/16/2024 at 20:44 Approved by: Mario Cho M.D. on 10/16/2024 at 20:51 CT scan - abdomen/pelvis: Radiologist's Impression: [address] [address] [address] Scan Report Signed Patient: Rupesh Olmedo MR#: [id number] : 1960 Acct:[id number] Age/Sex: 63 / M Date of Service: 10/16/24 Loc: ED Accession Number: [id number] Procedure: CT abdomen pelvis w con Ordering Provider: James Everett MD PROCEDURE: CT ABDOMEN PELVIS W CON INDICATIONS: syncope, unclear cause TECHNIQUE: After the administration of intravenous contrast, axial sections acquired from the lung bases to the pubic symphysis. Coronal and sagittal reformats were performed. For radiation dose reduction, the following was used: automated exposure control, adjustment of mA and/or kV according to patient size. COMPARISON: None. FINDINGS: Image quality: Diagnostic. Peritoneum: No pneumoperitoneum or ascites. Bones: No acute osseous abnormality. Diffuse idiopathic skeletal hyperostosis of the thoracic spine. Partial ankylosis of the anterior sacroiliac joints (2/132). Lower Chest: No acute abnormality. Liver: Hepatomegaly up to 21.9 cm in the craniocaudal dimension (4/73). Diffuse hypoattenuation. Normal contour Gallbladder: No stones or pericholecystic fluid. Biliary tree: No intrahepatic or extrahepatic biliary ductal dilatation. Pancreas: Within normal limits. Spleen: Normal in size and contour. Kidneys: No hydronephrosis or obstructive urolithiasis. Adrenals: No adrenal nodularity. Bladder: Mildly distended urinary bladder. Normal wall thickness. : Moderate left and small right hydroceles (4/54) Stomach: Normal in size and contour. Bowel: Normal in diameter without any bowel obstruction. Appendix within normal limits (4/66). Scattered colonic diverticulosis. Lymph Nodes: No retroperitoneal or mesenteric lymphadenopathy by size criteria, although there are multiple nonenlarged retroperitoneal nodes at the taylor hepatis and retroperitoneal stations (4/82). Nonspecific bilateral inguinal lymphadenopathy up to 1.5 cm in the short axis (2/201). Vascular: No abdominal aortic aneurysm. The visualized arterial vasculature is patent. Soft Tissues: small small fat containing right inguinal hernia (2/181). IMPRESSION: 1. Hepatomegaly with hepatic steatosis. 2. Nonspecific, multiple nonenlarged taylor hepatis and retroperitoneal nodes with bilateral inguinal lymphadenopathy. Please correlate with CBC values for an underlying blood cell dyscrasia. 3. No other acute CT abnormality of the abdomen/pelvis. Dictated by: Constantino Mendenhall M.D. on 10/16/2024 at 20:15 Approved by: Constantino Mendenhall M.D. on 10/16/2024 at 20:22 ECG Data Attestation: I personally reviewed and interpreted this ECG as follows: Interpretation: Atrial fibrillation with ventricular response rate 78, no obvious ST segment elevation or depression changes. QRS 106, QTC 490. MDM Narrative Medical decision making narrative: 63-year-old male had syncopal episode, woke up on kitchen floor, no preceding palpitation or chest pain symptoms, no incontinence, no history of shaking, no incontinence, felt weak and unable to get up, discovered by on floor who called 911, no events during transport. Feels recovered now. History of atrial fibrillation, recent medication changes, amiodarone discontinued, metoprolol formulation changed from tartrate to succinate, 1st low dose metoprolol succinate 25 mg daily had been started 2 days ago. EKG troponin negative. Chest x-ray negative, see radiology report. Other lab results: White blood cell count 5200, hemoglobin 11.1, platelets adequate. Basic metabolic panel unremarkable, glucose 106 noted. Normal renal function electrolytes. T bili 1.4, AST 135, ALT 55, alkaline phosphatase 112. CPK 219. BNP 218. Troponin x2 sets negative/unmeasurable. Urine dip negative. CT head noncontrast, no acute changes, see radiology report. CT angiogram chest, no acute PE, cardiomegaly noted, nonspecific airway thickening, no consolidation focal. See radiology report CT abdomen and pelvis, hepatomegaly with steatosis, nonspecific retroperitoneal and bilateral inguinal lymphadenopathy, no acute changes. See radiology report. True syncopal episode of unclear cause, consider admission. Patient/family agreeable. PCP Cristina, will contact PCP or cross cover provider. [id number], case discussed with cross cover physician Dr. Hernandez who accepts patient for admission to observation. Critical Care Time Critical Care Time Critical Care Time: Yes Total Critical Care Time: 35 Attestation: The high probability of a clinically significant, sudden or life threatening deterioration of the [cardiopulmonary, cerebrovascular, neuro] system(s) required my full and direct attention, intervention and personal management. The aggregate critical care time was [35] minutes. This time is in addition to time spent performing reported procedures but includes the following: [x] Data Review and interpretation [x] Patient assessment and monitoring of vital signs [x] Documentation [x] Medication orders and management Discharge Plan Departure Patient Disposition: Admitted as Observation Clinical Impression: Syncope and collapse Admit Date/Time: 10/16/24 21:13 Admit Provider: Rohan Hernandez
--- NOTE | 2024-10-16 18:48 | DI.CT.S_ITS ---
PROCEDURE: CT ANGIO CHEST PE PROTOCOL INDICATIONS: syncopal episode TECHNIQUE: After the administration of intravenous contrast, 2 mm thick sections acquired from the pulmonary apices to the posterior costophrenic angles. 3-dimensional maximum intensity projection (MIP) coronal and sagittal reformats were then acquired through the thorax. For radiation dose reduction, the following was used: automated exposure control, adjustment of mA and/or kV according to patient size. COMPARISON: [facility], CT, CT ANGIO CHEST ABDOMEN PELVIS, 07/24/2021, 11:47. [facility], CR, XR CHEST 1V, 10/16/2024, 13:58. FINDINGS: Image quality: Diagnostic. Pulmonary arteries: Pulmonary arteries are normal in size, and demonstrate no intraluminal filling defects to suggest central pulmonary embolism. Lower Neck: No enlarged lymph nodes. Thyroid: No thyroid nodules which require sonographic follow up, per consensus guidelines. Axillae: No enlarged lymph nodes. Chest Wall: Bilateral gynecomastia. Bones: Visualized osseous structures appear intact without acute fracture or focal destructive lesion. No acute compression fractures of the imaged spine. Lungs and Pleura: No pneumothorax or pleural effusions. Bibasilar atelectasis. Mild bilateral perihilar airway thickening. No septal thickening or nodularity. No suspicious pulmonary nodules. Heart: Cardiomegaly. No pericardial effusion. Thoracic Vessels: No aortic aneurysm. Mediastinum and Meghan: No enlarged lymph nodes. Esophagus: No wall thickening. No hiatal hernia. Upper Abdomen: Hepatic steatosis. Other visualized upper abdomen solid organs and bowel loops appear normal. IMPRESSION: No acute pulmonary embolus. Cardiomegaly. Minimal bilateral perihilar airway thickening which is nonspecific and may represent bronchitis either infectious or inflammatory in etiology. No dense consolidation. No focal consolidation. Hepatic steatosis. Other chronic findings as above Dictated by: Mario Cho M.D. on 10/16/2024 at 20:44 Approved by: Mario Cho M.D. on 10/16/2024 at 20:51
--- NOTE | 2024-10-16 18:48 | DI.CT.S_ITS ---
PROCEDURE: CT HEAD/BRAIN WO CON INDICATIONS: syncope TECHNIQUE: Noncontrast 4.5 mm thick angled axial sections acquired from the foramen magnum to the vertex, with coronal and sagittal reformats. For radiation dose reduction, the following was used: automated exposure control, adjustment of mA and/or kV according to patient size. COMPARISON: [facility], CT, CT HEAD/BRAIN WO CON, 07/24/2021, 14:32. FINDINGS: Image quality: Diagnostic. CSF spaces: Basal cisterns are patent. No extra-axial fluid collections. The ventricles are symmetric in size and shape. Brain: No intracranial bleeds or masses. There is cerebral volume loss for age, with resultant ventricular and sulcal prominence. There are periventricular and deep white matter chronic small vessel ischemic changes. There is intracranial internal carotid artery atherosclerosis. Skull and face: Calvarium and visualized facial bones appear intact, without suspicious lesions. Sinuses: Visualized sinuses and mastoids are clear. IMPRESSION: 1. CT head without acute intracranial abnormalities or acute calvarial fractures. 2. Age-related senescent changes and sequela of chronic small vessel ischemic disease. Dictated by: Mario Cho M.D. on 10/16/2024 at 19:52 Approved by: Mario Cho M.D. on 10/16/2024 at 19:53
--- NOTE | 2024-10-16 18:49 | DI.CT.S_ITS ---
PROCEDURE: CT ABDOMEN PELVIS W CON INDICATIONS: syncope, unclear cause TECHNIQUE: After the administration of intravenous contrast, axial sections acquired from the lung bases to the pubic symphysis. Coronal and sagittal reformats were performed. For radiation dose reduction, the following was used: automated exposure control, adjustment of mA and/or kV according to patient size. COMPARISON: None. FINDINGS: Image quality: Diagnostic. Peritoneum: No pneumoperitoneum or ascites. Bones: No acute osseous abnormality. Diffuse idiopathic skeletal hyperostosis of the thoracic spine. Partial ankylosis of the anterior sacroiliac joints (2/132). Lower Chest: No acute abnormality. Liver: Hepatomegaly up to 21.9 cm in the craniocaudal dimension (4/73). Diffuse hypoattenuation. Normal contour Gallbladder: No stones or pericholecystic fluid. Biliary tree: No intrahepatic or extrahepatic biliary ductal dilatation. Pancreas: Within normal limits. Spleen: Normal in size and contour. Kidneys: No hydronephrosis or obstructive urolithiasis. Adrenals: No adrenal nodularity. Bladder: Mildly distended urinary bladder. Normal wall thickness. : Moderate left and small right hydroceles (4/54) Stomach: Normal in size and contour. Bowel: Normal in diameter without any bowel obstruction. Appendix within normal limits (4/66). Scattered colonic diverticulosis. Lymph Nodes: No retroperitoneal or mesenteric lymphadenopathy by size criteria, although there are multiple nonenlarged retroperitoneal nodes at the taylor hepatis and retroperitoneal stations (4/82). Nonspecific bilateral inguinal lymphadenopathy up to 1.5 cm in the short axis (2/201). Vascular: No abdominal aortic aneurysm. The visualized arterial vasculature is patent. Soft Tissues: small small fat containing right inguinal hernia (2/181). IMPRESSION: 1. Hepatomegaly with hepatic steatosis. 2. Nonspecific, multiple nonenlarged taylor hepatis and retroperitoneal nodes with bilateral inguinal lymphadenopathy. Please correlate with CBC values for an underlying blood cell dyscrasia. 3. No other acute CT abnormality of the abdomen/pelvis. Dictated by: Constantino Mendenhall M.D. on 10/16/2024 at 20:15 Approved by: Constantino Mendenhall M.D. on 10/16/2024 at 20:22
[2024-10-16] MEDS: SODIUM CHLORIDE 0.9% 1,000 ML 1000 ML IV (19:31)
[2024-10-16 19:57] LABS: Troponin I < 0.012 ng/mL (0.01-0.034)
[2024-10-17] VITALS (8 sets, daily range): BP systolic 139–156; BP diastolic 7–99; PULSE 95–118; RESP 16–25; TEMP 36.4–36.6; O2SAT 95–96
--- NOTE | 2024-10-17 04:21 | PC.NURSE ---
medical accounting clerk RN changed patient's leg dressings, applied skin barrier cream and non adhesive bandages. Pt tolerated dressing change very well without any complaints of pain.
--- NOTE | 2024-10-17 07:47 | PC.WOUNDPHOT ---
Late entry Photos: [id number] SANJU Hilario
--- NOTE | 2024-10-17 07:52 | DI.ECHO.S_ITS ---
[place] [facility] : : [address] : : [place] : : [id number] : : Phone: [phone] Echocardiogram Report + + :Name: RUBIA GARCIA Study Date: 10/17/2024 Height: 74 in : :[facility] ReadingLocation: Weight: 362 lb : : Gender: Male BSA: 2.8 m2 : :: 1960 Age: 63 yrs BP: 156/86 mmHg: :Reason For Study: ATRIAL FIBRILLATION, SYNCOPE : :Ordering Physician: DELVIS, : :ANN Performed By: Calin Hernandez : :Referring: ANN EDMONDSON : + + Interpretation Summary TDS - MORBID OBESITY, SCANNED SUPINE The patient was in atrial fibrillation with heart rates between 98-137 bpm during the exam. Previously sinus rhythm. The left ventricle is normal in size. Left ventricular ejection fraction is estimated to be 55 +/- 5%. Previous LV EF 60 to 65%. The right ventricle grossly appears normal in size with probable normal systolic function.TAPSE: 1.8 cm There is mild tricuspid regurgitation. Pulmonary artery pressures cannot be estimated because of the lack of a measurable TR jet velocity. Procedure: A two-dimensional transthoracic echocardiogram with color flow and Doppler was performed. A contrast injection of Definity was performed to improve assessment of LV function. The study quality was technically difficult. Comparison is made with the echocardiogram of 07/04/2024. The patient was in atrial fibrillation with heart rates between 98-137 bpm during the exam. Left Ventricle: The left ventricle is normal in size. Left ventricular wall thickness is mildly increased. There is no thrombus. Left ventricular ejection fraction is estimated to be 55 +/- 5%. There are no focal wall motion abnormalities. Diastolic function could not be accurately assessed due to atrial fibrillation. Right Ventricle: The right ventricle is not well visualized. The right ventricle grossly appears normal in size with probable normal systolic function. Atria: The left atrium is severely dilated. The left atrium has mildly increased in size since the prior echo exam. The right atrium is mildly dilated. The interatrial septum is not well visualized. Mitral Valve: The mitral valve leaflets appear mildly thickened, but open well. There is a flat closure plane of the the mitral valve leaflets. There is trace mitral regurgitation. Aortic Valve: The aortic valve is not well visualized. There is no hemodynamically significant valvular aortic stenosis. No aortic regurgitation is present. Tricuspid Valve: The tricuspid valve is not well visualized. There is mild tricuspid regurgitation. Pulmonary artery pressures cannot be estimated because of the lack of a measurable TR jet velocity. Pulmonic Valve: The pulmonic valve is not well visualized. There is trace pulmonic regurgitation. Great Vessels: The aortic root is normal size. The dimensions of the ascending aorta are normal. The pulmonary is not well visualized. The inferior vena cava was not visualized. Pericardium/ Pleura There is no pericardial effusion. There is an anterior echo-free space consistent with a fat pad. MMode/2D Measurements & Calculations LVIDd: 5.2 cm LVOT diam: 2.3 cm LVIDs: 3.2 cm Ao root diam: 4.1 cm FS: 37.4 % asc Aorta Diam: 3.6 cm EPSS: 0.86 cm IVSd: 1.1 cm LVPWd: 1.2 cm LV dutta. diameter/BSA (cm/m^2): 1.8 LV sys. diameter/BSA (cm/m^2): 1.2 LA A2 area: 30.6 cm2 RA long axis: 5.4 cm LA A4 area: 47.7 cm2 RA area: 19.8 cm2 LA length (vol): 8.6 cm RA vol: 61.3 ml LA vol: 144.7 ml RA : 21.9 ml/m2 LA vol index: 51.8 ml/m2 TAPSE: 1.8 cm Doppler Measurements & Calculations Ao V2 max: 148.4 cm/sec LVOT Max Jaycob: 107.5 cm/sec Ao V2 mean: 117.4 cm/sec LV V1 max P.6 mmHg Ao max P.8 mmHg LV V1 VTI: 18.6 cm Ao mean P.8 mmHg DORIS(I,D): 2.7 cm2 Ao V2 VTI: 29.1 cm DORIS(V,D): 3.0 cm2 sev ratio: 0.64 DORIS indexed to BSA (cm^2/m^2): 0.95 MV E max jaycob: 103.3 cm/sec PA V2 max: 118.5 cm/sec MV A max jaycob: 0.34 cm/sec PA V2 mean: 78.2 cm/sec MV E/A: 305.2 PA mean P.9 mmHg Med Peak E' Jaycob: 7.3 cm/sec PA pr(Accel): 17.3 mmHg E/E' med: 14.1 Lat Peak E' Jaycob: 6.9 cm/sec E/E' lat: 14.9 E/e' average: 14.5 MV dec time: 0.16 sec SVLVOT): 77.4 ml Reading Physician:12:10 PM
--- NOTE | 2024-10-17 07:59 | PM.HP.IH.1 ---
History of Present Illness History of Present Illness Date Patient Seen: 10/17/24 Time Patient Seen: 08:00 Chief complaint: Syncope Narrative: Pt is a 63yo man with paroxysmal atrial fibrillation, thrombocytopenia, prediabetes, hypertension, and seizure disorder who presented after syncopal episode at home. The pt reports that yesterday afternoon after urinating he was walking to the living room and had LOC. He denies any preceding chest pain, SOB, palpitations, or other symptoms. He was feeling completely normal. He is uncertain how long he was unconscious for, but does not believe it was a long time. When he came to, he was unable to rise due to pain in his right knee from falling. He denies any headache and does not believe he hit his head. He did not bite his tongue and denies any urinary incontinence. He felt a little out of it afterwards, but this only lasted for a few minutes. He does not feel this was a seizure. He denies any focal neurological symptoms. His was on her way home already and found him. EMS was contacted, and he was brought to the ER for further evaluation. In the ED, the pt had lab work completed that showed mildly elevated liver enzyme, likely due to fatty liver. Lipase was minimally elevated. He had a negative CT head, chest, and abdomen/pelvis. CXR was normal as well. Troponin x2 were negative. The pt had been seen by Cardiology earlier this week and initated on Metoprolol succinate 25mg daily, which he started on 10/15. His Amiodarone was also stopped at that appointment. This morning, the pt reports no concerns. He is feeling at baseline. He continues to deny and chest pain, SOB, palpitations. He is not feeling lightheaded or dizzy. He has no specific concerns this morning. [facility] Medical History (Updated 10/16/24 @ 21:07 by James Everett MD) Prediabetes Thrombocytopenia Hypertension Seizure Surgical History (Updated 03/12/23 @ 10:31 by Thuy Evans MD) S/P hernia repair Status post right knee replacement Family History (Updated 03/12/23 @ 10:33 by Thuy Evans MD) Mother Cancer Brother Myocardial infarct Social History household members: spouse Smoking Status: Never smoker alcohol intake: current Meds Home Medications and Allergies Home Medications Medication Instructions Recorded Confirmed Type Disabled Parking #1 ea 04/25/24 10/16/24 Rx Lactobacillus acidophilus 500 500 mmu cells PO DAILY #30 caps 09/03/24 10/16/24 Rx million cell capsule fluoxetine 20 mg capsule 20 mg PO DAILY #30 caps 09/03/24 10/16/24 Rx furosemide 20 mg tablet 20 mg PO DAILY #30 tabs 09/03/24 10/16/24 Rx losartan 50 mg tablet 50 mg PO DAILY 09/03/24 10/16/24 History cadexomer iodine 0.9 % topical gel 40 g topical 3XW #40 grams 10/15/24 10/16/24 Rx (Iodosorb) clotrimazole-betamethasone 1 1 applic topical BID #45 grams 10/15/24 10/16/24 Rx %-0.05 % topical cream amlodipine 5 mg tablet 5 mg PO DAILY 10/16/24 10/16/24 History metoprolol succinate 50 mg 50 mg PO DAILY #30 tabs 10/17/24 Rx tablet,extended release 24 hr Allergies Allergy/AdvReac Type Severity Reaction Status Date / Time No Known Drug Allergies Allergy Verified 10/16/24 13:54 Exam Vital Signs (past 8 hours): Oxygen Delivery Method Room Air Oxygen Flow Rate 0 Narrative Exam Narrative: Gen: NAD, sitting comfortably in bed HEENT: normocephalic, atraumatic, sclera clear Neck: no LAD CV: irregularly irregular rhythm, mild tachycardia, no murmurs Resp: clear to auscultation bilaterally Abd: soft, nontender Ext: leg wraps in place, baseline 2+ edema bilaterally Neuro: no gross deficits Objective Labs 10/16/24 14:00 10/16/24 14:00 Labs: Laboratory Results - last 24 hr 10/16/24 10/16/24 14:00 19:30 WBC 5.2 RBC 3.89 L Hgb 11.9 L Hct 36.2 L MCV 93.0 MCH 30.6 MCHC 32.9 RDW 21.4 H Plt Count 161 Neut % (Auto) 62.4 Lymph % (Auto) 23.3 L Divide % (Auto) 12.8 Eos % (Auto) 0.0 L Baso % (Auto) 1.5 Neut # (Auto) 3300 Lymph # (Auto) 1200 Divide # (Auto) 700 Eos # (Auto) 0 Baso # (Auto) 100 Platelet Estimate Adequate on smear RBC Morphology See below Anisocytosis 1+ H PT 13.1 H INR 1.2 APTT 44 H Sodium 141 Potassium 4.1 Chloride 107 Carbon Dioxide 25 BUN 14 Creatinine 1.16 Estimated GFR > 60 BUN/Creatinine Ratio 12.1 Glucose 106 Calcium 8.1 L Magnesium 1.6 Total Bilirubin 1.4 H AST 135 H ALT 55 H Alkaline Phosphatase 112 Total Creatine Kinase 219 H Troponin I < 0.012 < 0.012 NT-Pro-B Natriuret Pep 218 H Total Protein 7.2 Albumin 3.9 Globulin 3.3 Albumin/Globulin Ratio 1.2 Lipase 420 H Assessment & Plan Assessment & Plan narrative: Pt is a 63yo man with paroxysmal atrial fibrillation, thrombocytopenia, prediabetes, hypertension, and seizure disorder who presented after syncopal episode at home. Unclear cause for syncope. Pt certainly has multiple potential reasons for syncopal episode - known seizure disorder, atrial fibrillation not on anticoagulation, new initiation of beta marcy. 1) Syncope: Pt does not feel consistent with seizure, no significant postictal state or other symptoms to support. CT head negative in the ED, no other neurological symptoms to support CVA. Most likely vasovagal or cardiac in origin. Pts HR has been frequently tachycardic on telemetry here. Less likely bradycardic episode from initiation of Metoprolol. Echocardiogram was obtained while in the hospital, which was reassuring. Metoprolol dosing increased to 50mg, with some improvement in HR, although still quite variable. Will plan to stay at 50mg dosing at discharge. Pt deemed safe for discharge home, as no more concerning etiology found. 2) Thrombocytopenia: Platelets significantly improved from prior values at admission. Pt is not currently anticoagulated for atrial fibrillation due to thrombocytopenia. Will requiring ongoing monitoring, however if remain at this level could reconsider. 3) Hypertension: Pts BP is elevated. Increasing PO Metoprolol as above. Pt will continue to keep log at home and bring to f/u appt. Dispo: Pt to be discharged home today. Will return to the hospital if any recurrent syncopal episodes. If does have recurrence, would likely be helpful to hospitalize where Cardiology and Neurology in house due to history. Time-Based Coding :: [TOTAL MINUTES] spent with patient and on the chart (including review of chart, obtaining history, exam, reviewing outside data, placing orders, documenting exam and treatment plan, and counseling patient) on [DATE]. Quality VTE Deep Vein Thrombosis/Pulmonary Embolism Present on Admission: No IH PROFEE Log Inspector Document charge(s): Yes Charge Codes Inpatient/observation care including admit and discharge same day: [id number]
[2024-10-17] MEDS: FUROSEMIDE 20 MG TABLET PO (08:34)
[2024-10-17] MEDS: LOSARTAN 50 MG TABLET PO (08:34)
[2024-10-17] MEDS: AMLODIPINE 5 MG TABLET PO (08:35)
[2024-10-17] MEDS: METOPROLOL ER 50 MG TABLET 25 MG PO (08:35)
[2024-10-17] MEDS: METOPROLOL ER 25 MG TABLET PO (13:06)
--- NOTE | 2024-10-17 15:09 | CM.DANOTE ---
DCP Assessment Note: Pt is a 63yo male, resident of [place], is admitted for syncope. Pt lives in a house with his , Anna. Pt's Primary Care Provider is Dr. Thuy Evans and insurance is [employer]. Reviewed chart and discussed with multidisciplinary team pt's medical status and initial discharge needs. DCP met w/patient at bedside; introduced self and role. Present in the room are pt's and son. Patient was found in bed, alert and oriented, cooperative with assessment. Pt confirmed living situation and good support in and son. Pt expressed preference in discharge home when available. Pt has no prior hx of SNF Rehab or home health, does not feel that is necessary at this time. Plan: Anticipating dc home with family, discharge orders are in for pt on 10/17/24. CM team will follow closely for coordination of discharge plans. CHRISTIAN Corea Discharge Planning/Care Management CM Discharge Assessment Start: 10/17/24 15:05 Freq: Status: Active Protocol: Document 10/17/24 15:06 MW (Rec: 10/17/24 15:07 [id number]) Discharge Planning Assessment Assigned Lacquer Coater JOSHUA Horton DPOA/Assigned Designee Name Mimi Castillo Contact Information [phone] Advance Directives? Yes Advance Directives on File No History Provided By Patient,Medical Record Has Patient been admitted in last 30 No days? Prior Living Arrangements House Household Members spouse Type of transporation used prior to Drives own vehicle admit Independent with ADL's Yes Is patient alert and oriented? Yes Caregiver for Another No DME Already Rented / Owned FWW / Walker,Nebulizer Comment CPAP Discharge Plan Home Referrals Initiated None needed Review Status In Process Please Provide Date Initial DC 10/17/24 Assessment Was Performed Next Review Type Continued Stay Review
--- NOTE | 2024-10-17 15:12 | PC.NURSE ---
Day shift: Discharge instructions given to patient and patient's family. All questions answered, patient stated understanding. PIV and tele removed prior to discharge. All belongings with patient. AIDEE Mar escorted patient to exit via wheelchair.
== END 2024-10-17 15:00 | disposition home or self-care (01) ==
LOC: ED 21:13 → AC 21:14
PROVIDERS: Student in an Organized Health Care Education/Training Program; Admitting Provider Family Medicine; Emergency Provider Emergency Medicine; Family Provider Internal Medicine; PCP Family Medicine; Visit Provider Family Medicine
DX: R55 Syncope and collapse (principal); W18.30XA Fall on same level, unspecified, initial encounter; Y92.009 Unspecified place in unspecified non-institutional (private) residence as the place of occurrence of the external cause; I48.0 Paroxysmal atrial fibrillation; G40.909 Epilepsy, unspecified, not intractable, without status epilepticus; I10 Essential (primary) hypertension; R73.03 Prediabetes; D69.6 Thrombocytopenia, unspecified; R74.8 Abnormal levels of other serum enzymes; M25.561 Pain in right knee
CPT/HCPCS: 70450; 71045; 71275; 74177; 80053; 81003; 82550; 83690; 83735; 83880; 84484; 85025; 85610; 85730; 93005; 99284; 99291; G0378; C8929; Q9957; Q9967

== ENCOUNTER 2025-01-12 14:43 | Emergency (ER) | payer OTHER, SELFPAY ==
[2024-10-16 21:43] VITALS: BMI 45.2
[2025-01-12] VITALS (12 sets, daily range): BP systolic 126–152; BP diastolic 62–93; PULSE 106–119; RESP 17–28; TEMP 36.9; O2SAT 95–98; BMI 51.0
--- NOTE | 2025-01-12 15:26 | EKG_ITS ---
[address] [address] Test Date: 2025-01-12 Pat Name: Rupesh Olmedo Department: Room: Gender: Male Chair Inspector: ADRIAN : 1960 Requested By: Order Number: [id number] Reading MD: Galo Talley Measurements Intervals [place] Rate: 106 P: [place]: QRS: -8 QRSD: 90 T: 64 QT: 370 QTc: 491 Interpretive Statements Atrial fibrillation with rapid ventricular response Nonspecific T wave abnormality Electronically Signed On 01-14-2025 16:19:51 PDT by Galo Talley
[2025-01-12 15:57] LABS: Alanine Aminotransferase 43 IU/L (<50); Albumin 2.8 g/dL (3.5-5.0); Albumin Globulin Ratio 0.6 (1.0-2.8); Alkaline Phosphatase 216 U/L (38-126); Aspartate Aminotransferase 227 IU/L (17-59); BUN Creatinine Ratio 16.2 (6-22); Bilirubin Total 17.5 mg/dL (0.2-1.3); Blood Urea Nitrogen 16 mg/dL (9-20); Calcium 7.5 mg/dL (8.4-10.2); Carbon Dioxide 20 mmol/L (22-32); Chloride 99 mmol/L (98-107); Estimated Glomerular Filt Rate > 60 mL/min (>60); Globulin 4.5 g/dL (1.7-4.1); Glucose 94 mg/dL (70-99); HEMOLYSIS < 15 (0-50); Lipase 844 U/L (23-300); Potassium 3.5 mmol/L (3.4-5.1); Sodium 133 mmol/L (137-145); Total Protein 7.3 g/dL (6.3-8.2)
[2025-01-12 16:02] LABS: Add Manual Diff / Slide Review NO; Basophils Absolute Auto 0 /uL (0-100); Basophils Percent Auto 0.2 % (0-2); Eosinophils Absolute Auto 0 /uL (0-450); Hematocrit 35.8 % (41-53); Lymphocytes Absolute Auto 400 /uL (1100-4500); Lymphocytes Percent Auto 8.8 % (25-40); Mean Corpuscular HGB Conc 33.4 % (30-36); Mean Corpuscular Hemoglobin 33.3 PG (26-34); Mean Corpuscular Volume 99.7 fL (80-100); Monocytes Absolute Auto 800 /uL (0-900); Monocytes Percent Auto 15.2 % (3-14); Neutrophils Absolute Auto 3800 /uL (1500-7000); Neutrophils Percent Auto 75.8 % (50-75); Platelet Count 38 X10^3/uL (150-400); Red Blood Cell Count 3.59 X10^6/uL (4.5-5.9); Red Cell Distribution Width 21.4 % (11.6-14.8)
[2025-01-12 16:20] LABS: Platelet Estimate Decreased on smear
[2025-01-12 16:21] LABS: Anisocytosis 1+
--- NOTE | 2025-01-12 17:57 | DI.CT.S_ITS ---
PROCEDURE: CT ABDOMEN PELVIS W CON INDICATIONS: very high bilirubin TECHNIQUE: After the administration of intravenous contrast, axial sections acquired from the lung bases to the pubic symphysis. Coronal and sagittal reformats were performed. For radiation dose reduction, the following was used: automated exposure control, adjustment of mA and/or kV according to patient size. COMPARISON: [facility], CT, CT ABDOMEN PELVIS W CON, 10/16/2024, 18:53. FINDINGS: Image quality: Diagnostic. Lower Chest: No significant findings. ABDOMEN: Liver: Liver measures approximately 20.5 cm. It demonstrates a diffuse appearance of heterogeneous density with multiple small low-attenuation foci. Overall appearance is markedly progressive compared to prior exam. Gallbladder: No radiopaque gallstones or wall thickening. Biliary ducts: No biliary dilation. Pancreas: No ductal dilation. Spleen: Size is within normal limits. Adrenal Glands: No adrenal nodules. Kidneys and Ureters: No hydronephrosis. No solid mass. No complex renal cystic lesion which requires follow up. Stomach and Bowel: Normal colonic caliber, without significant wall thickening. Peritoneum: There is been interval development perihepatic and perisplenic fluid as well as dependent pelvic fluid. No free air. Ventral Wall: No significant ventral hernia. Abdominal Nodes: No retroperitoneal or mesenteric adenopathy by size criteria. Vessels: Aorta and inferior vena cava are normal in size. PELVIS: Pelvic Organs: Unremarkable. Bladder: No bladder wall thickening, accounting for underdistention. Pelvic Nodes: No enlarged lymph nodes. Miscellaneous: No inguinal hernias are seen. Bones: No aggressive osseous abnormality. IMPRESSION: Enlarged liver with more heterogeneous diffuse abnormal appearance on current exam compared to prior. In addition, there is been development of ascites. While this could represent interval worsening of steatosis, other infiltrative disease cannot be excluded. As clinically indicated on a nonemergent basis, further evaluation with hepatic liver protocol MRI may be obtained. Dictated by: Nina Gaines M.D. on 01/12/2025 at 18:34 Approved by: Nina Gaines M.D. on 01/12/2025 at 18:36
--- NOTE | 2025-01-12 20:27 | ED.RECABL ---
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 He was followed by [facility] Hematology he was there this morning and noted his jaundice color they added on liver panel and call him with results telling him he needed to go to the emergency department. reports that she has noted an increased yellow in color in his skin. He reports increased abdominal bloating mild discomfort and some shortness breath. No nausea or vomiting no fever or chills. He was found to have significantly elevated bilirubin 17.5. Related Data Home Medications Medication Instructions Recorded Confirmed losartan 50 mg tablet 50 mg PO DAILY 09/03/24 10/29/24 amlodipine 5 mg tablet 5 mg PO DAILY 10/16/24 10/29/24 Previous Rx's Medication Instructions Recorded Disabled Parking #1 ea 04/25/24 Lactobacillus acidophilus 500 500 mmu cells PO DAILY #30 caps 09/03/24 million cell capsule fluoxetine 20 mg capsule 20 mg PO DAILY #30 caps 09/03/24 furosemide 20 mg tablet 20 mg PO DAILY #30 tabs 09/03/24 cadexomer iodine 0.9 % topical gel 40 g topical 3XW #40 grams 10/15/24 (Iodosorb) clotrimazole-betamethasone 1 1 applic topical BID #45 grams 10/15/24 %-0.05 % topical cream metoprolol succinate 50 mg 25 mg (1/2 x 50 mg) PO DAILY #30 10/24/24 tablet,extended release 24 hr tabs zonisamide 100 mg capsule 200 mg (2 x 100 mg) PO DAILY #60 10/28/24 caps Allergies Allergy/AdvReac Type Severity Reaction Status Date / Time dexamethasone AdvReac Hallucinati Verified 01/12/25 15:25 ng prednisone AdvReac Hallucinati Verified 01/12/25 15:25 ng Patient History Medical History Prediabetes Thrombocytopenia Hypertension Seizure Surgical History S/P hernia repair Status post right knee replacement Family History Mother Cancer Brother Myocardial infarct Social History household members: spouse Smoking Status: Never smoker alcohol intake: current Smoking Status: Never smoker alcohol intake frequency: a few times a week Exam Initial Vital Signs Initial Vital Signs: Vital Signs Temperature 98.5 F 01/12/25 15:20 Pulse Rate 106 H 01/12/25 15:20 Respiratory Rate 17 01/12/25 15:20 Blood Pressure 134/79 01/12/25 15:20 Pulse Oximetry 98 01/12/25 15:20 Oxygen Delivery Method Room Air 01/12/25 15:20 GENERAL: Alert jaundice 64-year-old male and in no acute distress. HEENT: Head atraumatic,EOMI, pupils reactive, face symmetric, moist mucous membranes CARDIOVASCULAR: Irregularly irregular RESPIRATORY: Breath sounds equal bilaterally, no wheezes rales or rhonchi. ABDOMEN: Soft, nontender distended positive fluid wave EXTREMITIES: Normal range of motion, no clubbing +4 pitting edema legs are wrapped Neurovascularly intact NEUROLOGICAL: Alert and oriented x4.Normal gait and speech. Cranial nerves II through XII grossly intact. SKIN: Warm, dry, no laceration, no petechiae, no rashes or lesions. Course Orders Ordered: ED Orders 01/12/25 21:00 Bilirubin Direct Stat Haptoglobin Stat LDH [Lactate Dehydrogenase] Stat 01/12/25 23:36 Anti Mitochondrial HALEY IGG Stat GGT [Gamma Glutamyl Transpeptidase] Stat Hepatitis Acute Panel Stat Smooth Muscle Antibody Stat Discontinued Medications Ondansetron HCl (Ondansetron 4 Mg/2 Ml Inj) 4 mg IV NOW PRN PRN Reason: Nausea And Vomiting Ondansetron HCl (Ondansetron 4 Mg Odt) 4 mg PO NOW PRN PRN Reason: Nausea And Vomiting Vital Signs Vital signs: Vital Signs - 8 hr 01/12/25 22:00 01/12/25 22:00 01/12/25 22:30 Pulse Rate 117 H 109 H Respiratory Rate 28 H 18 Blood Pressure 152/89 H Pulse Oximetry 97 96 Oxygen Delivery Method Room Air Room Air 01/12/25 23:00 01/12/25 23:00 01/12/25 23:30 Pulse Rate 119 H Respiratory Rate 17 Blood Pressure 142/70 H 149/93 H Pulse Oximetry 95 Oxygen Delivery Method 01/12/25 23:30 Pulse Rate 116 H Respiratory Rate 17 Blood Pressure Pulse Oximetry 96 Oxygen Delivery Method Room Air MDM - Recheck/Abnormal Lab/Rx Lab Data 01/12/25 15:30 01/12/25 15:30 Labs: Lab Results 01/12/25 01/12/25 01/12/25 Range/Units 15:30 21:00 23:36 WBC 5.0 (4.5-11.0) X10^3/uL RBC 3.59 L (4.5-5.9) X10^6/uL Hgb 12.0 L (13.5-17.5) g/dL Hct 35.8 L (41-53) % MCV 99.7 (80-100) fL MCH 33.3 (26-34) PG MCHC 33.4 (30-36) % RDW 21.4 H (11.6-14.8) % Plt Count 38 L (150-400) X10^3/uL Neut % (Auto) 75.8 H (50-75) % Lymph % (Auto) 8.8 L (25-40) % Slope % (Auto) 15.2 H (3-14) % Eos % (Auto) 0.0 L (2-4) % Baso % (Auto) 0.2 (0-2) % Neut # (Auto) 3800 (2040-3602) /uL Lymph # (Auto) 400 L (7500-2928) /uL Slope # (Auto) 800 (0-900) /uL Eos # (Auto) 0 (0-450) /uL Baso # (Auto) 0 (0-100) /uL Platelet Estimate Decreased on smear RBC Morphology See below Anisocytosis 1+ H Sodium 133 L (137-145) mmol/L Potassium 3.5 (3.4-5.1) mmol/L Chloride 99 (98-107) mmol/L Carbon Dioxide 20 L (22-32) mmol/L BUN 16 (9-20) mg/dL Creatinine 0.99 (0.66-1.25) mg/dL Estimated GFR > 60 (>60) mL/min BUN/Creatinine Ratio 16.2 (6-22) Glucose 94 (70-99) mg/dL Calcium 7.5 L (8.4-10.2) mg/dL Total Bilirubin 17.5 H (0.2-1.3) mg/dL Direct Bilirubin 14.0 H (0.0-0.4) mg/dL GGT 1354 H (15-73) U/L AST 227 H (17-59) IU/L ALT 43 (<50) IU/L Alkaline Phosphatase 216 H (38-126) U/L Lactate Dehydrogenase 480 H (120-246) U/L Total Protein 7.3 (6.3-8.2) g/dL Albumin 2.8 L (3.5-5.0) g/dL Globulin 4.5 H (1.7-4.1) g/dL Albumin/Globulin Ratio 0.6 L (1.0-2.8) Lipase 844 H (23-300) U/L Imaging Data CT scan - abdomen/pelvis: Radiologist's Impression: PROCEDURE: CT ABDOMEN PELVIS W CON INDICATIONS: very high bilirubin TECHNIQUE: After the administration of intravenous contrast, axial sections acquired from the lung bases to the pubic symphysis. Coronal and sagittal reformats were performed. For radiation dose reduction, the following was used: automated exposure control, adjustment of mA and/or kV according to patient size. COMPARISON: [facility], CT, CT ABDOMEN PELVIS W CON, 10/16/2024, 18:53. FINDINGS: Image quality: Diagnostic. Lower Chest: No significant findings. ABDOMEN: Liver: Liver measures approximately 20.5 cm. It demonstrates a diffuse appearance of heterogeneous density with multiple small low-attenuation foci. Overall appearance is markedly progressive compared to prior exam. Gallbladder: No radiopaque gallstones or wall thickening. Biliary ducts: No biliary dilation. Pancreas: No ductal dilation. Spleen: Size is within normal limits. Adrenal Glands: No adrenal nodules. Kidneys and Ureters: No hydronephrosis. No solid mass. No complex renal cystic lesion which requires follow up. Stomach and Bowel: Normal colonic caliber, without significant wall thickening. Peritoneum: There is been interval development perihepatic and perisplenic fluid as well as dependent pelvic fluid. No free air. Ventral Wall: No significant ventral hernia. Abdominal Nodes: No retroperitoneal or mesenteric adenopathy by size criteria. Vessels: Aorta and inferior vena cava are normal in size. PELVIS: Pelvic Organs: Unremarkable. Bladder: No bladder wall thickening, accounting for underdistention. Pelvic Nodes: No enlarged lymph nodes. Miscellaneous: No inguinal hernias are seen. Bones: No aggressive osseous abnormality. IMPRESSION: Enlarged liver with more heterogeneous diffuse abnormal appearance on current exam compared to prior. In addition, there is been development of ascites. While this could represent interval worsening of steatosis, other infiltrative disease cannot be excluded. As clinically indicated on a nonemergent basis, further evaluation with hepatic liver protocol MRI may be obtained. Dictated by: Nina Gaines M.D. on 01/12/2025 at 18:34 ECG Data Attestation: I personally reviewed and interpreted this ECG as follows: Prior ECG tracings: available for review Interpretation: Atrial fibrillation rate [address] changes similar to previous EKGs MDM Narrative Medical decision making narrative: MDM CC: Abnormal blood work Complicating co-morbidities: ITP currently on IVIG, cirrhosis Data collected from: Patient and family at bedside Medical records reviewed: Latest Hematology no reviewed. He does have a history of alcohol use disorder fatty liver hypertension. Previous ITP was treated with steroid for 3 days Differential considered: Liver mass hemolysis naz it is cholangitis choledocholithiasis malignant Exam documented above, pertinent findings include: Patient 64-year-old male awake alert appropriate obese and jaundiced. Abdomen is soft but distended no guarding or rebound Lab Test results independently reviewed as above. Pertinent findings: Platelets 38 Bilirubin 17.5, direct bilirubin 14, GGT is 1354 Lipase 844 Hemoglobin 12.0 hematocrit 35 point Independently reviewed EKG as above AFib no ischemia Imaging studies independently reviewed: CT abdomen pelvis shows enlarged liver diffuse abnormal appearance on current exam compared to prior with development of ascites. Ultrasound increased hepatic echogenicity most consistent with hepatic steatosis, small gallstones gallbladder not distended there is pericholecystic fluid around gallbladder favored to represent secondary reactive changes due to ascites on CT Consultations: 2029 Dr. Liu on-call surgery updated patient's symptoms test results along with CT and blood work. Does suggest more of hematology picture rather than GI picture. Recommends ultrasound to fully rule out dilated bile ducts difficult to say if this is inpatient and transfer versus outpatient follow-up 2244 Dr. Dobson updated on patient's symptoms test results we will help refer to GI [id number]. Kujuri, updated patient's symptoms test results added some lab values including anti smooth muscle antimitochondrial hepatitis Treatments: None Re-evaluations: Patient's abdomen is soft he has no right upper quadrant pain he was awake alert appropriate does have ascites clinically. Discussion: Patient 64-year-old male presenting today with jaundice. This has been slowly getting worse over time. He has no significant pain he was afebrile no leukocytosis. He continues to be thrombocytopenic with platelets of 33. Contraindication for paracentesis today. CT does not show any evidence of mass. Patient overall appears well but jaundice. He was significantly elevated bilirubin. No ductal dilation seen on CT or ultrasound he was absolutely no pain. Oncology confirmed that he had a elevated bilirubin of 2.4 couple of weeks ago. He definitely needs to have evaluation by GI I but unclear how emergent this is. This does not seem to be hemolytic has he was not anemic. Maybe related to his hepatic steatosis. Hematology confirmed it is unlikely to be related to the IVIG and hemolytic anemia he was not anemic. Strict return precautions discussed with family. They understand and will return as Discharge Plan Departure Patient Disposition: Home Clinical Impression: Thrombocytopenia, Jaundice Activity Restrictions/Additional Instructions: *You have been diagnosed with jaundice *What to do: You will need a referral to GI Doctor alejandra will be able to make this referral for you. I have also talked with Hematology. Additionally blood work has been added. *Continue to take medications as directed *Follow up with your primary care provider in 2-3 days or call [phone] *Return to ER if you should have increasing confusion weakness pain or any new, worsening or concerning symptoms Prescriptions: No Action (DME) Disabled Parking See Rx Instructions .ROUTE .MEDSUPPLY Qty: 1 0RF Rx Instructions: I find this patient to be medical disabled and qualified for Disabled Parking as indicated, and signed, on the and the Accompanying Disabled Parking Application for Individuals. losartan 50 mg tablet 50 mg PO DAILY Hold Instructions: hypotension Lactobacillus acidophilus 500 million cell capsule 500 mmu cells PO DAILY Qty: 30 0RF fluoxetine 20 mg capsule 20 mg PO DAILY Qty: 30 2RF furosemide 20 mg tablet 20 mg PO DAILY Qty: 30 2RF clotrimazole-betamethasone 1-0.05 % cream 1 applic topical BID Qty: 45 2RF Iodosorb 0.9 % gel 40 g topical 3XW Qty: 40 2RF metoprolol succinate 50 mg tablet extended release 24 hr 25 mg PO DAILY Qty: 30 3RF zonisamide 100 mg capsule 200 mg PO DAILY Qty: 60 3RF amlodipine 5 mg tablet 5 mg PO DAILY Hold Instructions: hypotension Referrals: Thuy Evans MD [Primary Care Provider] - Stand Alone Forms: Patient Portal/API/Survey
--- NOTE | 2025-01-12 20:33 | DI.US.S_ITS ---
PROCEDURE: US ABDOMEN LIMITED INDICATIONS: elevated edin TECHNIQUE: Real-time scanning was performed of the abdominal and retroperitoneal organs, with image documentation. COMPARISON: [facility], CT, CT ABDOMEN PELVIS W CON, 01/12/2025, 18:16. FINDINGS: Liver: Increased in echogenicity. Decreased sonographic penetration. This limits the exam. Gallbladder: Small gallstones x2. Gallbladder wall appears thickened. Pericholecystic fluid. Negative sonographic Diallo's sign. Biliary ducts: Not well seen. Pancreas: Not well seen. IMPRESSION: 1. Increased hepatic echogenicity most consistent with hepatic steatosis and/or hepatocellular disease. Decreased sonographic penetration limits the exam. 2. Small gallstones. Gallbladder is not distended. However, there is pericholecystic fluid and gallbladder wall thickening. Findings favored to represent secondary reactive changes due to ascites seen on CT. Cholecystitis is in the differential diagnosis. -Recommend clinical correlation. HIDA scan could be considered for further evaluation. Dictated by: Lakhwinder Eckert M.D. on 01/12/2025 at 23:30 Approved by: Lakhwinder Eckert M.D. on 01/12/2025 at 23:37
[2025-01-12 21:45] LABS: Lactate Dehydrogenase 480 U/L (120-246)
[2025-01-13 00:36] LABS: Gamma Glutamyl Transpeptidase 1354 U/L (15-73)
[2025-01-14 01:07] LABS: HBsAg Screen Negative (Negative); Hepatitis A Antibody IgM Negative (Negative); Hepatitis B Core Antibody IgM Negative (Negative); Hepatitis C Antibody Non Reactive (Non Reactive)
[2025-01-14 04:36] LABS: Haptoglobin 35 mg/dL (32-363)
[2025-01-15 13:10] LABS: Anti Mitochondrial ABY IGG <20.0 Units (0.0-20.0); Smooth Muscle Antibody 21 Units (0-19)
== END 2025-01-12 23:58 | disposition home or self-care (01) ==
PROVIDERS: Emergency Medicine; Emergency Provider Emergency Medicine; Family Provider Internal Medicine; PCP Family Medicine
DX: D69.6 Thrombocytopenia, unspecified (principal); R17 Unspecified jaundice
CPT/HCPCS: 36415; 74177; 76705; 80053; 80074; 82248; 82977; 83010; 83516; 83615; 83690; 85025; 86015; 93005; 99283; 99284; Q9967